=== PATIENT | female | born 1985 | race Caucasian/White ===

== ENCOUNTER → 2017-09-22 10:23 | Outpatient (CLI) | payer BC, SELFPAY ==
[2017-09-22 12:19] LABS: Basophils % 0.3 % (0.1-2.0); Eosinophils # 0.2 K/mm3 (0.0-0.4); Eosinophils % 2.6 % (0.1-12.0); Hematocrit 40.4 % (37.0-47.0); Hemoglobin 13.5 g/dL (12.2-16.2); Lymphocytes # 2.3 K/mm3 (0.7-4.5); Lymphocytes % 25.4 K/mm3 (10-50); Mean Corpuscular HGB Conc 33.4 g/dL (31.8-35.4); Mean Corpuscular Hemoglobin 29.3 pg (27.0-31.2); Mean Corpuscular Volume 87.9 fl (81-99); Mean Platelet Volume 8.3 fl (7.4-10.4); Monocytes # 0.3 K/mm3 (0.1-1.0); Monocytes % 3.6 % (1.7-9.3); Neutrophils # 6.2 K/mm3 (1.8-7.8); Neutrophils % 68.1 % (37.0-80.0); Platelet Count 294 K/mm3 (142-424); Red Cell Distribution Width 12.9 % (11.5-17.5); White Blood Count 9.1 K/mm3 (4.8-10.8)
[2017-09-23 08:21] LABS: HIV Screen 4th Generation wRfx Non Reactive (Non Reactive)
[2017-09-24 06:41] LABS: Hepatitis B Surface Antigen Negative (Negative); Hepatitis C Antibody <0.1 s/co ratio (0.0-0.9); Rapid Plasma Reagin Ab Titer Non Reactive (NonRea<1:1); Rubella Antibodies, IgG 3.63 index (Immune >0.99)
== END ==
PROVIDERS: PCP Family Medicine; Visit Provider Nurse Practitioner Obstetrics & Gynecology
DX: Z3A.01 Less than 8 weeks gestation of pregnancy (principal)
CPT/HCPCS: 36415; 85025; 86592; 86703; 86762; 86850; 87340; 87380; G0432

== ENCOUNTER → 2017-09-29 13:25 | Outpatient (CLI) | payer BC, SELFPAY ==
--- NOTE | 2017-09-29 13:30 | US_ITS ---
US OB transvaginal Ordering Physician: Josh Pearl MD Patient Age: 32 years: Female HISTORY: ITS.REASON: DATES early gestation. Evaluate dates TECHNIQUE: Transvaginal pelvic ultrasound COMPARISON :None element FINDINGS Early intrauterine gestation sac and gestation evident. Yolk sac 0.37 cm. First CRL measurement = 0.47 cm = 6 weeks 2 days. . Second measurement CRL = 0.36 cm = 6 week 1 day . No G sac measurement/size submitted Heart rate 1:09 PM. Average ultrasound age 6 weeks 1 day. Gestational age 6 week 1 day... Based on LMP 08/17/2017. Ultrasound due date 05/24/2018. Left ovary 3 cm x 1.8 x 1.3 cm. Scattered small follicles. Flow. Right ovary. 2.6 x 3.6 2.5 cm. Right ovary contains a 1.8 x 1.3 cm cyst. Possible corpus luteum.. IMPRESSION: Single] very early intrauterine gestation.. Average ultrasound age 6 weeks 1 day Heart flicker noted. Yolk sac and early embryo identified. Ovaries normal in size . 1.8 cm cyst cyst at right ovary. Probable corpus luteum cyst.
== END ==
PROVIDERS: Family Provider Nurse Practitioner Obstetrics & Gynecology; PCP Family Medicine; Visit Provider Nurse Practitioner Obstetrics & Gynecology
DX: O26.841 Uterine size-date discrepancy, first trimester (principal)
CPT/HCPCS: 76830

== ENCOUNTER 2017-10-03 10:22 | Emergency (ER) | payer BC, SELFPAY ==
[2017-10-03 10:25] VITALS: BP 140/79; PULSE 84; RESP 16; TEMP 37; O2SAT 98; BMI 33.4
--- NOTE | 2017-10-03 10:36 | US_ITS ---
US OB transvaginal HISTORY: ITS.REASON: VAGINAL BLEEDING AND PAIN ORDERING PHYSICIAN: Oleg Pinzon MD PATIENT AGE: 32 years COMPARISON: None FINDINGS: An intrauterine gestational sac is present with a pole with a crown-rump length of 0.65cm correlating to gestational age of 6 weeks 4 days. heart tones are present with an FHR of 134 bpm's. Yolk sac is noted. There is a heterogeneous area of echogenicity inferior to the gestational sac and could be due to a small area of subchorionic hemorrhage. There is a 18 mm right ovarian cyst. IMPRESSION: 1. Live IUP at 6 weeks 4 days with an estimated due date of 05/25/2018 2. Heterogeneous echogenicity along the lower uterine segment which could be due to an area of subchorionic hemorrhage
[2017-10-03 10:45] LABS: Microscopic, Urine URINE MICROSCOPIC (MICROSCOPIC)
[2017-10-03 10:46] LABS: Appearance,Urine CLEAR (Clear); Bilirubin,Urine Negative (Negative); Blood, Urine Negative (Negative); Color,Urine YELLOW (Yellow); Glucose,Urine (UA) Negative (Negative); Ketones,Urine Negative (Negative); Leukocyte Esterase,Urine Negative (Negative); Nitrate,Urine Negative (Negative); Protein,Urine Negative (Negative); Urobilinogen,Urine 0.2 EU/dl (0.2)
--- NOTE | 2017-10-03 10:48 | HMH.EDGENADL ---
ED Disposition Clinical Impression: Threatened affecting intrauterine Disposition: Home, Self-Care Condition on Discharge: Fair Additional Instructions: Advised to rest as much as possible and to avoid sexual activity. Followup with OBGYN within the next 4 to 5 days to re-evaluate. If any tissue is passed, save it and bring to the ED for analysis. Referrals: Juan A Garcia MD [Primary Care Provider] - Time of Disposition: 11:44 - Critical Care Critical Care Time: No Attestation: On 10/03/17, the high probability of a clinically significant, sudden or life threatening deterioration of the following system(s) required my full and direct attention, intervention and personal management. The time I documented below is in addition to time spent performing reported procedures but includes the following listed in this critical care notation. Medical Decision Making - Medical Records Medical records reviewed: Yes: I reviewed the patient's medical records. Vital Signs: 10/03/17 10:25 Temperature 98.6 F Temperature Source Oral Pulse Rate [Right Brachial] 84 Respiratory Rate 16 Blood Pressure [Right Arm] 140/79 Blood Pressure Mean [Right Arm] 99 Blood Pressure Source [Right Arm] Automatic Cuff Blood Pressure Position [Right Arm] Sitting 02 Sat by Pulse Oximetry 98 Oxygen Delivery Method Room Air - Lab Data Lab results reviewed: Yes: I reviewed the patient's lab results. Lab Results 10/03/17 10:40: Urine Color Yellow, Urine Appearance Clear, Urine pH 6.0, Ur Specific [place] 1.020, Urine Protein Negative, Urine Glucose (UA) Negative, Urine Ketones Negative, Urine Blood Negative, Urine Nitrate Negative, Urine Bilirubin Negative, Urine Urobilinogen 0.2, Ur Leukocyte Esterase Negative, Urine RBC None, Urine WBC Occasional, Ur Squamous Epith Cells 10-20, Urine Bacteria 2+ 10/03/17 10:50: WBC 9.2, RBC 4.89, Hgb 14.7, Hct 44.5, MCV 90.9, MCH 30.1, MCHC 33.1, RDW 12.8, Plt Count 312, MPV 8.4, Neut % (Auto) 66.4, Lymph % (Auto) 27.8, [place] % (Auto) 3.7, Eos % (Auto) 1.8, Baso % (Auto) 0.4, Neut # (Auto) 6.1, Lymph # (Auto) 2.6, [place] # (Auto) 0.3, Eos # (Auto) 0.2, Baso # (Auto) 0.0 10/03/17 10:50: Sodium 138, Potassium 4.3, Chloride 104, Carbon Dioxide 28, Anion Gap 10.3, BUN 7, Creatinine 0.71, Estimated Creat Clear 169, Estimated GFR 95, Est GFR ( Amer) 115, Glucose 109 H, Calcium 9.1, Total Bilirubin 0.3, AST 11 L, ALT 24, Alkaline Phosphatase 106, Total Protein 7.6, Albumin 3.7, Globulin 3.9 H, Albumin/Globulin Ratio 0.9 L, HCG, Quant [id number] H Result diagrams: 10/03/17 10:50 10/03/17 10:50 Orders (Tests/Meds): ORDERS Category Date Time Status US transvaginal Stat Exams 10/03/17 10:36 Ordered Urine Culture Stat Micro 10/03/17 10:40 Received - US Data US Images: Pelvis ED US Reviewed: Yes: I have reviewed the patient's US results, I discussed the US results w/the radiologist, I have viewed radiologist's interpretation Findings Narrative: Normal IUP with Corpus Luteum cyst...? small collection of blood next to sac - Dada Inquiry Pt receiving controlled substance: No Dada was queried for this patient: No General Adult HPI - General Chief complaint: OB/Uterine Contractions Stated complaint: 7 weeks with bleeding Time Seen by Provider: 10/03/17 10:50 Mode of Arrival: Family Vehicle Limitations: No Limitations Description of Symptoms (Recalled from ER Triage Doc. by RN): C/O 7 WEEKS AND DEVELOPED LIGHT VAGINAL BLEEDING THIS AM WITH CRAMPING - History of Present Illness HPI narrative: Pt is 7weeks ...had a home preg. test at 4 weeks and had an US done here this past Friday that showed a heart beat and a pole. This morning started spotting but not passed any tissue. Maternal Blood type is A positive. She has see Dr. Prieto and is scheduled to see again in about 1 month - Related Data Home Medications Medication
--- NOTE | 2017-10-03 10:53 | ED_ITS ---
ED Disposition Clinical Impression: Threatened affecting intrauterine Disposition: Home, Self-Care Condition on Discharge: Fair Additional Instructions: Advised to rest as much as possible and to avoid sexual activity. Followup with OBGYN within the next 4 to 5 days to re-evaluate. If any tissue is passed , save it and bring to the ED for analysis. Referrals: Juan A Garcia MD [Primary Care Provider] - Time of Disposition: 11:44 - Critical Care Critical Care Time: No Attestation: On 10/03/17, the high probability of a clinically significant, sudden or life threatening deterioration of the following system(s) required my full and direct attention, intervention and personal management. The time I documented below is in addition to time spent performing reported procedures but includes the following listed in this critical care notation. Medical Decision Making - Medical Records Medical records reviewed: Yes: I reviewed the patient's medical records. Vital Signs: 10/03/17 10:25 Temperature 98.6 F Temperature Source Oral Pulse Rate [Right Brachial] 84 Respiratory Rate 16 Blood Pressure [Right Arm] 140/79 Blood Pressure Mean [Right Arm] 99 Blood Pressure Source [Right Arm] Automatic Cuff Blood Pressure Position [Right Arm] Sitting 02 Sat by Pulse Oximetry 98 Oxygen Delivery Method Room Air - Lab Data Lab results reviewed: Yes: I reviewed the patient's lab results. Lab Results 10/03/17 10:40: Urine Color Yellow, Urine Appearance Clear, Urine pH 6.0, Ur Specific [place] 1.020, Urine Protein Negative, Urine Glucose (UA) Negative, Urine Ketones Negative, Urine Blood Negative, Urine Nitrate Negative, Urine Bilirubin Negative, Urine Urobilinogen 0.2, Ur Leukocyte Esterase Negative, Urine RBC None, Urine WBC Occasional, Ur Squamous Epith Cells 10-20, Urine Bacteria 2+ 10/03/17 10:50: WBC 9.2, RBC 4.89, Hgb 14.7, Hct 44.5, MCV 90.9, MCH 30.1, MCHC 33.1, RDW 12.8, Plt Count 312, MPV 8.4, Neut % (Auto) 66.4, Lymph % (Auto) 27.8 , [place] % (Auto) 3.7, Eos % (Auto) 1.8, Baso % (Auto) 0.4, Neut # (Auto) 6.1, Lymph # (Auto) 2.6, [place] # (Auto) 0.3, Eos # (Auto) 0.2, Baso # (Auto) 0.0 10/03/17 10:50: Sodium 138, Potassium 4.3, Chloride 104, Carbon Dioxide 28, Anion Gap 10.3, BUN 7, Creatinine 0.71, Estimated Creat Clear 169, Estimated GFR 95, Est GFR ( Amer) 115, Glucose 109 H, Calcium 9.1, Total Bilirubin 0.3, AST 11 L, ALT 24, Alkaline Phosphatase 106, Total Protein 7.6, Albumin 3.7 , Globulin 3.9 H, Albumin/Globulin Ratio 0.9 L, HCG, Quant [id number] H Result diagrams: 10/03/17 10:50 10/03/17 10:50 Orders (Tests/Meds): ORDERS Category Date Time Status US transvaginal Stat Exams 10/03/17 10:36 Ordered Urine Culture Stat Micro 10/03/17 10:40 Received - US Data US Images: Pelvis ED US Reviewed: Yes: I have reviewed the patient's US results, I discussed the US results w/the radiologist, I have viewed radiologist's interpretation Findings Narrative: Normal IUP with Corpus Luteum cyst...? small collection of blood next to sac - Dada Inquiry Pt receiving controlled substance: No Dada was queried for this patient: No General Adult HPI - General Chief complaint: OB/Uterine Contractions Stated complaint: 7 weeks with bleeding Time Seen by Provider: 10/03/17 10:50 Mode of Arrival: Family Vehicle Limitations: No Limitations Description of Symptoms (Re
[2017-10-03 10:58] LABS: Basophils % 0.4 % (0.1-2.0); Eosinophils # 0.2 K/mm3 (0.0-0.4); Eosinophils % 1.8 % (0.1-12.0); Hematocrit 44.5 % (37.0-47.0); Hemoglobin 14.7 g/dL (12.2-16.2); Lymphocytes # 2.6 K/mm3 (0.7-4.5); Lymphocytes % 27.8 K/mm3 (10-50); Mean Corpuscular HGB Conc 33.1 g/dL (31.8-35.4); Mean Corpuscular Hemoglobin 30.1 pg (27.0-31.2); Mean Corpuscular Volume 90.9 fl (81-99); Mean Platelet Volume 8.4 fl (7.4-10.4); Monocytes # 0.3 K/mm3 (0.1-1.0); Monocytes % 3.7 % (1.7-9.3); Neutrophils # 6.1 K/mm3 (1.8-7.8); Neutrophils % 66.4 % (37.0-80.0); Platelet Count 312 K/mm3 (142-424); Red Blood Count 4.89 M/mm3 (4.20-5.40); Red Cell Distribution Width 12.8 % (11.5-17.5); White Blood Count 9.2 K/mm3 (4.8-10.8)
[2017-10-03 10:59] LABS: Bacteria,Urine 2+ /lpf; WBC,Urine Occasional #/hpf (0-3)
--- NOTE | 2017-10-03 11:17 | PC.NURSE ---
pt to rad for transvaginal ultrasound.
[2017-10-03 11:29] LABS: Alanine Aminotransferase 24 U/L (12-78); Albumin Level 3.7 gm/dL (3.4-5.0); Albumin/Globulin Ratio 0.9 (1.1-1.8); Alkaline Phosphatase 106 U/L (46-116); Anion Gap 10.3 mEq/L (5-15); Aspartate Amino Transferase 11 U/L (15-37); Bilirubin,Total 0.3 mg/dL (0.2-1.0); Blood Urea Nitrogen 7 mg/dL (7-18); Calcium 9.1 mg/dL (8.5-10.1); Carbon Dioxide 28 mmol/L (21.0-32.0); Chloride 104 mmol/L (98-107); Creatinine Clearance Estimated 169 mL/min (0-300); Creatinine,Serum 0.71 mg/dL (0.55-1.02); Estimated Glomerular Filt Rate 95 ml/min (>60); GFR (African American) 115 ML/MIN (>60); Globulin 3.9 gm/dl (1.3-3.2); Glucose 109 mg/dL (74-106); Potassium 4.3 mmoL/L (3.5-5.1); Sodium 138 mmol/L (136-145); Total Protein,Serum 7.6 gm/dL (6.4-8.2)
[2017-10-03 12:11] VITALS: BP 140/93; PULSE 90; RESP 18; TEMP 36.8; O2SAT 97
== END 2017-10-03 12:11 | disposition home or self-care (01) ==
PROVIDERS: Emergency Provider General Practice; Family Provider Nurse Practitioner Obstetrics & Gynecology; PCP Family Medicine
DX: O20.0 Threatened abortion (principal); Z3A.01 Less than 8 weeks gestation of pregnancy
CPT/HCPCS: 76830; 80053; 81001; 84702; 85025; 87086; 99282

== ENCOUNTER → 2018-01-05 14:09 | Outpatient (CLI) | payer BC, SELFPAY ==
--- NOTE | 2018-01-05 14:12 | US_ITS ---
US OB /maternal detail: INDICATION: ITS.REASON: US OB Complete-20 wk+ Anatomy Scan ORDERING PHYSICIAN: Josh Pearl MD PATIENT AGE: 32 years TECHNIQUE: ultrasound transabdominal scanning. COMPARISON: No previous relevant studies. FINDINGS: Single viable intrauterine gestation. BREECH position. Placenta: Posterior placenta grade 1. There is average amount fluid. Complete survey performed and was unremarkable on the submitted images as in PACS. No discrete anomalies identified on survey imaging by technologist. Active fetus. Three-vessel cord with satisfactory umbilical cord insertion. 4- chamber heart noted. Survey of brain & ventricles unremarkable. Face and neck survey unremarkable. Diaphragm and chest views unremarkable. Abdomen: Both kidneys noted and unremarkable. Stomach noted and satisfactory. Spine: Survey of the spine satisfactory with no anomalies identified nor imaged. Both arms and legs noted. Amniotic Fluid: Adequate. Maternal adnexa: No significant findings. Measurements: Average ultrasound age 19w5d. Gestational Age 20w1d. Estimated due date by ultrasound 05/27/2018 . Estimated weight 313 grams. This is 27th percentile based on estimated due date BPD = 19w1d OFD = 20w6d HC = 19w4d AC = 20w0d FL = 19w6d Heart Rate = 152 bpm Cerebellum = 19w5d Humerus = 20w4d HC/AC is 1.14 1.09-1.26). CI is 70%(70-86%). FL/BPD is 72%. FL/AC is 21%. IMPRESSION: There is a single live fetus in breech presentation with an average ultrasound age of 19 weeks 5 days. No obvious anomalies. All parameters correlate. Please see above for detail.
== END ==
PROVIDERS: Family Provider Nurse Practitioner Obstetrics & Gynecology; PCP Family Medicine; Visit Provider Nurse Practitioner Obstetrics & Gynecology
DX: Z36.0 Encounter for antenatal screening for chromosomal anomalies (principal)
CPT/HCPCS: 76811

== ENCOUNTER → 2018-03-24 13:32 | Outpatient (CLI) | payer BC, SELFPAY ==
--- NOTE | 2018-03-24 13:37 | US_ITS ---
US OB biophysical profile: Indication: ITS.REASON: US OB Bpp and Growth for OLIGO ORDERING PHYSICIAN: Josh Pearl MD PATIENT AGE: 32 years FINDINGS: There is a single live fetus present in breech presentation. The following parameters are obtained: Average ultrasound age is 30w2d. Estimated due date by ultrasound is 05/31/2018. Estimated weight is 1539. This is 12 percentile based on established due date of 05/24/2018 BPD: 29w6d OFD: 31w1d HC: 30w3d AC: 30w2d FL: 30w4d heart rate: 160 bpm. HC/AC: 1.07 (0.96-1.17) Cephalic index: 74% (70-86%) FL/BPD: 79% (70-86%) FL/AC: 22% (20-24%) Amniotic fluid index: 11 cm Qualitative AFV: 2 breathing movements: 2 Gross body movements: 2 Tone: 2 Biophysical profile score: 8/8 Doppler evaluation of the umbilical artery: SD ratio: 2.5 Resistive index: 0.59 No obvious anomalies evident. Placenta: Placenta Cervix: Appears closed and measures 4 cm IMPRESSION: Single live fetus in breech presentation with average ultrasound age of 30 weeks and 2 days. Estimated be weight is 1539 g which is 12 percentile based on established due date of 05/24/2018 There is average amniotic fluid volume with an NATHALIE of 10 cm. Biophysical profile is 8 of 8. Umbilical artery evaluation is unremarkable.
== END ==
PROVIDERS: Family Provider Nurse Practitioner Obstetrics & Gynecology; PCP Family Medicine; Visit Provider Nurse Practitioner Obstetrics & Gynecology
DX: O41.00X0 Oligohydramnios, unspecified trimester, not applicable or unspecified (principal); Z34.90 Encounter for supervision of normal pregnancy, unspecified, unspecified trimester
CPT/HCPCS: 76819

== ENCOUNTER → 2018-04-28 17:01 | Outpatient (REF) | payer BC, SELFPAY | LOC: LAB 17:01 | PROVIDERS: Visit Provider Nurse Practitioner Obstetrics & Gynecology | DX: Z34.90 Encounter for supervision of normal pregnancy, unspecified, unspecified trimester (principal) | CPT/HCPCS: 86403 ==

== ENCOUNTER 2018-05-18 05:25 | Inpatient (IN) ==
[2018-05-18 06:00] LABS: Basophils % 0.3 % (0.1-2.0); Eosinophils # 0.1 K/mm3 (0.0-0.4); Eosinophils % 1.3 % (0.1-12.0); Hematocrit 37.9 % (37.0-47.0); Hemoglobin 12.5 g/dL (12.2-16.2); Lymphocytes # 2.9 K/mm3 (0.7-4.5); Mean Corpuscular HGB Conc 32.9 g/dL (31.8-35.4); Mean Corpuscular Hemoglobin 29.9 pg (27.0-31.2); Mean Corpuscular Volume 90.9 fl (81-99); Mean Platelet Volume 9.9 fl (7.4-10.4); Monocytes # 0.5 K/mm3 (0.1-1.0); Monocytes % 4.6 % (1.7-9.3); Neutrophils # 7.2 K/mm3 (1.8-7.8); Neutrophils % 66.7 % (37.0-80.0); Platelet Count 197 K/mm3 (142-424); Red Blood Count 4.17 M/mm3 (4.20-5.40); Red Cell Distribution Width 14.7 % (11.5-17.5); White Blood Count 10.7 K/mm3 (4.8-10.8)
[2018-05-18 06:08] LABS: Anion Gap 14.9 mEq/L (5-15); Calcium 8.8 mg/dL (8.5-10.1); Potassium 3.9 mmoL/L (3.5-5.1)
[2018-05-18 06:49] LABS: Microscopic, Urine URINE MICROSCOPIC (MICROSCOPIC)
--- NOTE | 2018-05-18 07:15 | Progress Note ---
[facility] Anesthesia Checklist - Structural Data Admitted From: Home Planned Operative Procedure/s: c/section Consent for Planned Operative Procedure(s) Verified: Yes - Airway Assessment C-Spine Mobility Assessed: Yes TMJ Mobility Assessed: Yes Dentition: Good Dentition - Neurological Assessment Level of Consciousness: Awake, Alert, Appropriate - Anesthesia Plan Anesthesia Risk discussed: Yes Anesthesia Plan: Verified ASA Class: II Anesthesia Type: Spinal [facility] History I have reviewed the patient's past medical history: Yes Medical History: Reports:: Anxiety, Depression Denies:: Cancer, Diabetes Mellitus Type 1, Diabetes Mellitus Type 2, MRSA Laterality Cases: Bilateral: Tonsillectomy Other Surgeries: Yes: No Previous Surgery, Amputation: No Fractures: No - *Social History Smoking Status: Former smoker Alcohol Intake: never Substance Use Type: denies use - Psychiatric History Pschychiatric History:: Reports:: Anxiety, Depression *Family Hx:: No significant family history 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
[2018-05-18 07:39] LABS: Appearance,Urine CLEAR (Clear); Bilirubin,Urine Negative (Negative); Blood, Urine Negative (Negative); Color,Urine YELLOW (Yellow); Glucose,Urine (UA) Negative (Negative); Ketones,Urine Negative (Negative); Leukocyte Esterase,Urine Negative (Negative); Protein,Urine Negative (Negative); Specific Gravity, Urine >= 1.030 (1.005-1.030); Urobilinogen,Urine 0.2 EU/dl (0.2)
[2018-05-18 07:46] LABS: Bacteria,Urine Trace /lpf; Mucus,Urine 1+ /lpf
--- NOTE | 2018-05-18 08:14 | Operative Note ---
Date of procedure: 05/18/18 Pre-op Diagnosis:: Term , previous section, breech presentation Post-op Diagnosis:: Term , previous section, breech presentation Procedure performed:: Repeat lower segment transverse section Surgeon:: Josh Pearl MD Railroad Car Checker(s):: Yanet Mehta HOUSEKEEPER NANNY:: Michael Clark Anesthesia: spinal Estimated blood loss (mL): 600 Clinical Note:: She is a 33-year-old 2 para 1 who was 39 rotational age. She has had a previous section and as result she was offered repeat lower segment transverse section at term. She was also known to have a baby in the breech presentation. Operative findings:: She delivered a liveborn female child at 7:45 AM on the morning of May 18, 2018. The baby had Apgars of 7 at 1 minute and 10 at 5 minutes. PH was 7.37. The baby was in the footling breech presentation. Ovaries and tubes appeared normal. Operative note:: She was taken to the operating room where spinal anesthesia was found be adequate. She was prepped and draped in normal sterile fashion in the supine position with a leftward tilt. A Godoy catheter was in the bladder. A Pfannenstiel skin incision was made with knife then carried through to the underlying layer of fascia with cautery. The fascia was opened in the midline with cautery and extended laterally using Mcleod scissors. Yasmany clamps were applied to the superior aspect of the fascial incision which was tented up and the underlying rectus muscles dissected off using cautery. The Yasmany clamps were then applied to the inferior aspect of the fascial incision which in a similar fashion was tented up and the underlying rectus muscles dissected off using cautery. The rectus muscles were then in the midline, the peritoneum identified, and entered sharply with Metzenbaum scissors. This incision was then extended superiorly and inferiorly with cautery. We had good visualization of the bladder inferiorly. The bladder peritoneum was then opened in the midline and extended laterally using Metzenbaum scissors. A bladder flap was created digitally. The lower blade of the [place] was inserted so as to push the bladder out of the way. Transverse incision was made through the uterine muscle to the amnion. This incision was then extended laterally using fingers traction. The amnion was entered sharply with knife. The 's feet were then delivered atraumatically. This was followed by the anterior shoulder and the rest of the 's body atraumatically. The oropharynx and nasopharynx were bulb suctioned. The cord was clamped and cut and the infant was then handed off to Dr. Diaz who assigned Apgars of 7 at 1 minute and 10 at 5 minutes. We then obtained cord blood as well as cord pH. PH was 7.37. Using gentle traction on the cord and countertraction on the fundus I was able to easily deliver the placenta intact. It had a normal three-vessel cord. The uterus was then cleared of clots and debris and exteriorized from the abdominal cavity. The uterine incision was then closed using running 0 Vicryl suture in a locked fashion. A second layer of the same suture was used to imbricate the first layer. The bladder peritoneum was then closed using running 2-0 Vicryl suture in a locked fashion. The gutters and cul-de-sac were then cleared of clots and debris and the uterus was returned the abdominal cavity. Once again hemostasis was assured. The peritoneum was grasped with Sandra clamps and closed using running 2-0 Vicryl suture. The rectus muscles were then reapproximated using running 0 Vicryl suture. The fascia was closed using running #1 Vicryl suture. The subcutaneous tissues were then irrigated with warm water followed by closure Anjelica's fascia using running 2-0 Monocryl suture. The skin was closed with elia. I then cleaned the skin with Hibiclens. Sterile dressings were applied. She tolerated the procedure well and was taken to the recovery room in excellent condition. All sponges minute and needle counts were correct. Estimate a blood loss was approximately 600 mL. Condition: stable Disposition: PACU Specimens:: Products of conception Complications:: None
--- NOTE | 2018-05-18 08:17 | Progress Note ---
[facility] Anesthesia Record Part I Intake, IV Amount: 900 Estimated blood loss (mL): 600 Urine output (mL): 200 Blood Pressure: 148/76 SaO2: 97 Pulse Rate: 85 Respiratory Rate: 12 Temperature: 97.8 F Patient is:: Awake, Stable Stable to PACU at:: 08:15
--- NOTE | 2018-05-18 08:17 | Progress Note ---
[facility] Anesthesia Record Part II Discharge Time: 08:45 Destination: Obstetric PACU nurse assessment reviewed?: Yes Patient Condition:: Good Anesthesia Complications:: None
--- NOTE | 2018-05-18 08:39 | History & Physical Report ---
OB - H&P: HPI Antepartum - History of Present Illness Chief complaint: Term , breech presentation, previous section History of present illness: She is a 33-year-old 2 para 1 at 39 weeks gestational age. She is admitted for a repeat lower segment transverse section. She also has a baby in the breech presentation. - History of Present Criteria for establishing EDC:: LMP confirmed by 1st trimester US care: good care Ultrasounds: normal 1st trimester US, normal mid trimester US Obstetrical complications: malpresentation, previous Medical complications: none [facility] History I have reviewed the patient's past medical history: Yes Medical History: Reports:: Anxiety, Depression Denies:: Cancer, Diabetes Mellitus Type 1, Diabetes Mellitus Type 2, MRSA Laterality Cases: Bilateral: Tonsillectomy Other Surgeries: Yes: No Previous Surgery, Amputation: No Fractures: No - *Social History Smoking Status: Former smoker Alcohol Intake: never Substance Use Type: denies use - Psychiatric History Pschychiatric History:: Reports:: Anxiety, Depression *Family Hx:: No significant family history 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 Review of Systems - Review of Systems Review of systems:: pertinent systems reviewed and negative unless documented below Meds Home Medications Medication Instructions Recorded Confirmed Type 1 tab PO QHS 09/22/17 05/18/18 History vitamin,calcium,keheidyz-gbit-[id number] acid tablet Ferrous Sulfate 325 mg PO DAILY 05/18/18 05/18/18 History Allergies Allergy/AdvReac Type Severity Reaction Status Date / Time No Known Allergies Allergy Verified 05/18/18 06:43 OB - H&P: Exam - Physical Exam Vital signs: Temp Pulse Resp BP Pulse Ox 97.8 F 85 12 148/76 H 97 05/18/18 08:17 05/18/18 08:17 05/18/18 08:17 05/18/18 08:17 05/18/18 05:33 - Constitutional no acute distress - Routine HEENT Exam Head: Present: normocephalic Eye: Present: EOMI, PERRL ENT: Present: mucous membranes moist - Routine Neck Exam Present: supple, full ROM - Routine Respiratory Exam Absent: accessory muscle use (good air entry bilaterally), respiratory distress, wheezes, crackles - Routine Cardiovascular Exam Present: RRR. Absent: murmur - Routine Abdominal Exam Present: soft, normoactive bowel sounds. Absent: tenderness, distended, guarding - Routine Rectal Exam Patient deferred: visual exam, digital exam - Routine Exam Patient deferred: external exam, groin exam, perineal exam - Routine Extremities Exam Present: full ROM. Absent: cyanosis, edema - Routine Skin Exam Present: intact. Absent: cyanosis - Routine Neurological Exam Present: alert, oriented X3 - Routine Psychiatric Exam Present: normal affect OB - Results - Labs Labs: Short CBC 05/18/18 Range/Units 05:50 WBC 10.7 (4.8-10.8) K/mm3 Hgb 12.5 (12.2-16.2) g/dL Hct 37.9 (37.0-47.0) % Plt Count 197 (142-424) K/mm3 BMP 05/18/18 05:50 Sodium 136 Potassium 3.9 Chloride 104 Carbon Dioxide 21 BUN 8 Creatinine 0.62 Glucose 124 H Calcium 8.8 Urine 05/18/18 05/18/18 Range/Units 06:20 06:20 Urine Color Yellow (Yellow) Urine Appearance Clear (Clear) Urine pH 6.0 (5.0-8.5) Ur Specific [place] >= 1.030 (1.005-1.030) Urine Protein Cancelled Negative Urine Glucose (UA) Negative (Negative) OB - A/P Antepartum (1) Previous section complicating Current visit: Yes Status: Acute (2) Breech presentation delivered Current visit: Yes Status: Acute - Additional Plan Planning to breastfeed?: Yes Plan: other Additional Information:: She is admitted for a repeat lower segment transverse section.
--- NOTE | 2018-05-18 10:12 | Pharmacy Consult Notes ---
[facility] Pharmacy VTE Monitoring - Patient Demographics Admission date: 05/18/18 Report Date: 05/18/18 Time: 10:12 Allergies/Adverse Reactions: Patient Allergies No Known Allergies Allergy (Verified 05/18/18 06:43) Height: 1.68 m Weight: 106.594 kg Patient Problems: Current Active Problems Previous section complicating (Acute) Breech presentation delivered (Acute) - VTE Risk Labs: VTE Related Lab Results Hgb 12.5 g/dL (12.2-16.2) 05/18/18 05:50 Hct 37.9 % (37.0-47.0) 05/18/18 05:50 Plt Count 197 K/mm3 (142-424) 05/18/18 05:50 BUN 8 mg/dL (7-18) 05/18/18 05:50 Creatinine 0.62 mg/dL (0.55-1.02) 05/18/18 05:50 Estimated Creat Clear 217 mL/min (0-300) 05/18/18 05:50 Was VTE Risk Assessment Performed: Yes - Prophylaxis VTE Prophylaxis Ordered?: Yes Types of VTE Prophylaxis: IPCS Knee High Location of Applied Device: Bilateral Lower Extremeties
[2018-05-19 06:03] LABS: Basophils % 0.2 % (0.1-2.0); Eosinophils # 0.1 K/mm3 (0.0-0.4); Eosinophils % 0.8 % (0.1-12.0); Hematocrit 33.3 % (37.0-47.0); Lymphocytes # 1.7 K/mm3 (0.7-4.5); Lymphocytes % 17.8 K/mm3 (10-50); Mean Corpuscular HGB Conc 32.4 g/dL (31.8-35.4); Mean Corpuscular Hemoglobin 30.1 pg (27.0-31.2); Mean Corpuscular Volume 92.9 fl (81-99); Mean Platelet Volume 9.4 fl (7.4-10.4); Monocytes # 0.5 K/mm3 (0.1-1.0); Monocytes % 4.8 % (1.7-9.3); Neutrophils # 7.2 K/mm3 (1.8-7.8); Neutrophils % 76.4 % (37.0-80.0); Platelet Count 163 K/mm3 (142-424); Red Blood Count 3.59 M/mm3 (4.20-5.40); Red Cell Distribution Width 14.8 % (11.5-17.5); White Blood Count 9.4 K/mm3 (4.8-10.8)
[2018-05-19 06:15] LABS: Hemoglobin 10.9 g/dL (12.2-16.2)
--- NOTE | 2018-05-19 08:22 | Progress Note ---
Internal Medicine - PN: Subj *Date: 05/19/18 *Time: 08:21 Interval history: She continues to do very well. She is eating and. She is breast-feeding. Her lochia is normal. Her pain is reasonably well controlled. Exam Vital signs and Labs for Last 24 Hours: Temp Pulse Resp BP Pulse Ox 97.4 F L 75 16 133/74 99 05/18/18 08:49 05/18/18 08:49 05/18/18 08:49 05/18/18 08:49 05/18/18 08:49 Laboratory Results - last 24 hr 05/19/18 05:10: WBC 9.4, RBC 3.59 L, Hgb 10.9 L D, Hct 33.3 L, MCV 92.9, MCH 30.1, MCHC 32.4, RDW 14.8, Plt Count 163, MPV 9.4, Neut % (Auto) 76.4, Lymph % (Auto) 17.8, [place] % (Auto) 4.8, Eos % (Auto) 0.8, Baso % (Auto) 0.2, Neut # (Auto) 7.2, Lymph # (Auto) 1.7, [place] # (Auto) 0.5, Eos # (Auto) 0.1, Baso # (Auto) 0.0 I & O for Last 24 hours: Intake & Output 05/16/18 05/17/18 05/18/18 05/19/18 11:59 11:59 11:59 11:59 Intake Total 900 / 900 Output Total 200 / 200 Balance 700 / 700 Weight 235 lb - Constitutional no acute distress Assessment and Plan (1) Previous section complicating Current visit: Yes Status: Acute Category: Medical Code(s): O34.219 - Maternal care for unspecified type scar from previous delivery (2) Breech presentation delivered Current visit: Yes Status: Acute Category: Medical Code(s): O32.1XX0 - Maternal care for breech presentation, not applicable or unspecified - Assessment and plan all Dx Assessment and Plan for all problems:: She continues to do very well. We will plan to send her home tomorrow.
--- NOTE | 2018-05-20 08:38 | Discharge Summary ---
General - General Admission date:: 05/18/18 Discharge date: 05/20/18 HPI HPI: She is a 33-year-old 2 now para 2 who was 39+1 weeks gestational age. She has had a previous section as result of that was operatively lower segment transverse term. Hospital Course Hospital Course: On May 18, 2018 she underwent a repeat lower segment transverse section. She delivered a liveborn female child at 7:45 AM. The baby weighed 8 pounds 5 ounces and was 20 inches long. She had Apgars of 7 at 1 minute and 10 at 5 minutes. She has done well postoperatively and has remained afebrile throughout her hospitalization. She is eating and drinking and ambulating. She is bottlefeeding. She is only 2 days post delivery but would like to go home one day early. She will have her elia removed and Steri-Strips applied. She will be given a prescription for Dilaudid 4 mg p.o. to take 1/2 tablet every 4 hours as needed for pain. She will also take ibuprofen. She has a positive blood, she is rubella immune and was group B streptococcus negative. 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 Diaz. She is discharged home to follow-up with me in approximately 2 weeks time. She will continue with her vitamins and iron. She was given the usual instructions with respect to limiting her activity, driving and sexual activity. Rhogam Administration: Not Indicated Objective Vital signs: Temp Pulse Resp BP Pulse Ox 98.0 F 88 18 133/65 98 05/19/18 08:00 05/19/18 08:00 05/19/18 08:00 05/19/18 08:00 05/19/18 08:00 no acute distress DS: Diagnosis - Discharge Diagnosis (1) Previous section complicating Status: Acute (2) Breech presentation delivered Status: Acute Discharge Plan - Patient Discharge Instructions ACTIVITY: No heavy lifting DIET: continue same diet Additional Instructions: No heavy lifting, no tub baths, no strenuous activity and nothing in the vagina for 6 weeks. Patient Instructions: Depression, Hemorrhage, DI for , [facility] Post Discharge Instructions - Follow up Plan Follow up with: Josh Pearl MD [Family Provider] - 06/01/18 2:00 pm Disposition: Home, Self-Snf Medications: Home Medications Medication Instructions Recorded Confirmed Type 1 tab PO HS 09/22/17 05/18/18 History vitamin,calcium,bxmcmtmc-rklf-zaydc acid tablet Ferrous Sulfate 325 mg PO DAILY 05/18/18 05/18/18 History Prescriptions/Medication Reconciliation: New Hydromorphone HCl [Hydromorphone 2mg Tab] 2 mg PO Q4HP PRN #30 tab PRN Reason: Severe Pain Ibuprofen [Motrin 400mg tablet] 400 mg PO Q4HP PRN #40 tab PRN Reason: Moderate Pain Continue vitamin,calcium,jcqnbbbf-cypp-rmrtl acid tablet 1 tab PO HS Ferrous Sulfate 325 mg PO DAILY
== END 2018-05-20 11:20 | disposition home or self-care (01) ==
LOC: OB 05:25
PROVIDERS: ADMIT Nurse Practitioner Obstetrics & Gynecology; ATTEND Nurse Practitioner Obstetrics & Gynecology
CPT/HCPCS: 36415; 59025; 80048; 81001; 82800; 85025; 86850; 94761; J2405

== ENCOUNTER → 2019-12-09 11:09 | Outpatient (CLI) | payer OTHER, SELFPAY ==
--- NOTE | 2019-12-09 11:16 | XR_ITS ---
PROCEDURE: XR LUMBAR SPINE MIN 4V CLINICAL INDICATION: LOW BACK PAIN COMPARISON: No exams were available for comparison FINDINGS: There is straightening of the lumbar lordosis. No fracture or dislocation. No lytic or blastic change. There is minimal osteophyte formation at the inferior and anterior aspect of L3 IMPRESSION: Straightening of lumbar lordosis which could be due to patient positioning or muscle spasm with mild degenerative change Dictated by: Marco Taylor MD 12/09/2019 14:33 Electronically signed by Marco Taylor MD in [place] 12/09/2019 14:33
== END ==
LOC: RAD 11:13
PROVIDERS: PCP Family Medicine; Visit Provider Family Medicine
DX: M54.5 Low back pain (principal)
CPT/HCPCS: 72110

== ENCOUNTER 2020-03-13 17:17 | Emergency (ER) | payer OTHER, SELFPAY ==
[2020-03-13 17:38] VITALS: BP 148/94; PULSE 113; RESP 98; TEMP 36.8; O2SAT 98; BMI 28.2
--- NOTE | 2020-03-13 17:39 | HMH.EDUTC ---
[facility] [place] Disposition Clinical Impression: Exposure to COVID-19 virus, Viral syndrome Disposition: Home, Self-Care Condition on Discharge: Good Instructions: DI for Acute Bronchitis, DI for Viral Syndrome Additional Instructions: Drink plenty of fluids. Take tylenol for pain or fever. Take the medications as directed. Follow up with your regular doctor. GO TO THE ER FOR ANY WORSENING SYMPTOMS FOLLOW THE DIRECTIONS ON THE COVID-19 HAND OUT THAT WE GAVE YOU REGARDING SELF-ISOLATION UNTIL YOU KNOW YOUR COVID-19 RESULTS Prescriptions: Ondansetron [Zofran 4mg ODT] 4 mg PO Q8HP PRN #20 tab.rapdis PRN Reason: Nausea Transmission Status: Pending to [facility] Azithromycin [Z-Bart 250mg Tab*] 250 mg PO UD DOSE PK #6 tab Transmission Status: Pending to [facility] Referrals: Juan A Garcia MD [Primary Care Provider] - Forms: Work/School Release Time of Disposition: 17:44 Medical Decision Making - Medical Records Medical records reviewed: No: I reviewed the patient's medical records. - Dada Inquiry Pt receiving controlled substance: No Vital Signs: 03/13/20 17:38 Temperature 98.3 F Temperature Source Oral Pulse Rate [Right Brachial] 21 L Respiratory Rate 98 H Blood Pressure [Right Arm] 148/94 H Blood Pressure Mean [Right Arm] 112 Blood Pressure Source [Right Arm] Automatic Cuff Blood Pressure Position [Right Arm] Sitting 02 Sat by Pulse Oximetry 98 Oxygen Delivery Method Room Air Orders (Tests/Meds): ORDERS Category Date Time Status Coronavirus 19 Swab (OUTPT) Routine Lab 03/13/20 17:24 Ordered [facility] [place] HPI - General Stated complaint: covid symptoms Time Seen by Provider: 03/13/20 17:42 - History of Present Illness Provider Complaint: She c/o starting to feel bad 2 days ago. She states that she has mild shortness of breath at times. She has been chilling but denies any documented fever. - Related Data Previous Rx's Medication Instructions Recorded amoxicillin 875 mg tablet 875 mg PO Q12H #20 tab 09/24/19 prednisone 20 mg tablet 20 mg PO BID 5 Days #10 tab 09/24/19 hydrocortisone 1 %-pramoxine 1 % 1 applic MO QID PRN #10 g 12/06/19 rectal foam nitrofurantoin 100 mg PO Q12H 5 Days #10 cap 02/10/20 monohydrate/macrocrystals 100 mg capsule phenazopyridine 100 mg tablet 100 mg PO TID PRN 3 Days #9 tab 02/10/20 Azithromycin [Z-Bart 250mg Tab*] 250 mg PO UD DOSE PK #6 tab 03/13/20 Ondansetron [Zofran 4mg ODT] 4 mg PO Q8HP PRN #20 tab.rapdis 03/13/20 Allergies Allergy/AdvReac Type Severity Reaction Status Date / Time amoxicillin Allergy Verified 02/10/20 08:25 [facility] History - Hepatitis A Screen Attestation statement:: This patient has been screened for Hepatitis A risk factors. I have reviewed the patient's past medical history: Yes Medical History: Reports:: Anxiety, Depression Denies:: Cancer, Diabetes Mellitus Type 1, Diabetes Mellitus Type 2, MRSA Laterality Cases: Bilateral: Tonsillectomy Other Surgeries: Yes: No Previous Surgery, Amputation: No Fractures: No - Social History Smoking Status: Current every day smoker Tobacco Type: cigarettes # Packs/Day (cigarettes): 1 Alcohol Intake: never Substance Use Type: denies use Occupational Status: other Housing: house - Psychiatric History Pschychiatric History:: Reports:: Anxiety, Depression Family Hx:: No significant family history [employer] history: Additional [employer] History ROS Obtained: Yes All systems reviewed & no additional complaints - Constitutional Constitutional: Denies chills, Denies fever(s), Reports poor appetite, Reports malaise - ENT Ears, Nose, Mouth, and Throat: Reports as per HPI Physical Exam - General General appearance: alert, in no apparent distress - Head Head exam: atraumatic, normocephalic, normal inspection - Eye Eye exam: Present: normal appearance, PERRL, EOMI - ENT ENT exam: Present: normal exam, normal or
[2020-03-13 17:49] VITALS: BP 148/94; PULSE 113; RESP 21; TEMP 36.8; O2SAT 98
== END 2020-03-13 17:53 | disposition home or self-care (01) ==
PROVIDERS: Emergency Provider Nurse Practitioner Family; PCP Family Medicine
DX: Z20.828 Contact with and (suspected) exposure to other viral communicable diseases (principal); R06.02 Shortness of breath; F17.210 Nicotine dependence, cigarettes, uncomplicated; F41.8 Other specified anxiety disorders; Z90.09 Acquired absence of other part of head and neck; Z88.1 Allergy status to other antibiotic agents
CPT/HCPCS: 99201; U0003

== ENCOUNTER → 2020-12-28 15:53 | Outpatient (CLI) | payer OTHER, SELFPAY | LOC: RT 15:55 | PROVIDERS: PCP Family Medicine; Visit Provider Physician Assistant | DX: R00.0 Tachycardia, unspecified (principal) | CPT/HCPCS: 93225; 93226 ==

== ENCOUNTER → 2020-12-29 07:33 | Outpatient (CLI) | payer OTHER, SELFPAY ==
[2020-12-29 08:53] LABS: Basophils # 0.1 K/mm3 (0-0.2); Basophils % 0.5 % (0.1-2.0); Eosinophils # 0.4 K/mm3 (0.0-0.4); Eosinophils % 3.9 % (0.1-12.0); Hematocrit 41.4 % (37.0-47.0); Hemoglobin 13.8 g/dL (12.2-16.2); Lymphocytes # 2.1 K/mm3 (0.7-4.5); Lymphocytes % 22.3 % (10-50); Mean Corpuscular HGB Conc 33.3 g/dL (31.8-35.4); Mean Corpuscular Hemoglobin 29.1 pg (27.0-31.2); Mean Corpuscular Volume 87.6 fl (81-99); Mean Platelet Volume 8.1 fl (7.4-10.4); Monocytes # 0.3 K/mm3 (0.1-1.0); Monocytes % 3.6 % (1.7-9.3); Neutrophils # 6.6 K/mm3 (1.8-7.8); Neutrophils % 69.8 % (37.0-80.0); Platelet Count 279 K/mm3 (142-424); Red Blood Count 4.73 M/mm3 (4.20-5.40); Red Cell Distribution Width 13.1 % (11.5-17.5); White Blood Count 9.5 K/mm3 (4.8-10.8)
[2020-12-29 09:16] LABS: Alanine Aminotransferase 13 U/L (12-78); Albumin Level 4.2 g/dl (3.5-5.0); Albumin/Globulin Ratio 1.8 (1.1-1.8); Alkaline Phosphatase 95 U/L (38-126); Anion Gap 8.3 mEq/L (5-15); Aspartate Amino Transferase 17 U/L (14-36); Bilirubin,Total 0.8 mg/dl (0.2-1.3); Blood Urea Nitrogen 11 mg/dl (7-17); Calcium 9.2 mg/dl (8.4-10.2); Carbon Dioxide 25 mmol/L (22.0-30.0); Chloride 107 mmol/L (98-107); Chol/HDL Ratio 4.3 (1-3.5); Cholesterol 199 mg/dl (140-200); Estimated Glomerular Filt Rate 82 ml/min (>60); GFR (African American) 99 ML/MIN (>60); Globulin 2.4 g/dL (1.3-3.2); Glucose 128 mg/dl (74-100); HDL Cholesterol 46 mg/dl (40-60); Potassium 4.3 mmoL/L (3.5-5.1); Sodium 136 mmol/L (136-145); Total Protein,Serum 6.6 g/dl (6.3-8.2); Triglycerides 191 mg/dl (30-150); VLDL Cholesterol 38 mg/dL (0-40)
[2020-12-29 09:27] LABS: Direct LDL Cholesterol 112.33 mg/dL (100-129)
[2020-12-29 09:31] LABS: Free T4 (Free Thyroxine) 1.08 ng/dl (0.78-2.19)
[2020-12-29 09:45] LABS: Thyroid Stimulating Hormone 2.32 uIU/mL (0.465-4.68)
[2020-12-29 10:03] LABS: Vitamin B12 380 pg/mL (239-931)
== END ==
LOC: LAB 07:33
PROVIDERS: Visit Provider Physician Assistant
DX: R00.0 Tachycardia, unspecified (principal); I10 Essential (primary) hypertension; Z13.220 Encounter for screening for lipoid disorders
CPT/HCPCS: 36415; 80053; 80061; 82607; 84439; 84443; 85025

== ENCOUNTER → 2021-01-29 07:45 | Outpatient (CLI) | payer OTHER, SELFPAY ==
--- NOTE | 2021-01-29 07:49 | US_ITS ---
PROCEDURE: US ABDOMEN LIMITED CLINICAL INDICATION: RUQ ABD PAIN COMPARISON: No exams were available for comparison FINDINGS: PANCREAS: Unremarkable. No obvious mass or abnormal fluid collection. No ductal dilatation LIVER: No focal liver lesions demonstrated. Homogeneous echogenicity. No intrahepatic biliary ductal dilatation evident. There is appropriate direction of blood flow. The portal vein is upper normal at 13 15 mm. RIGHT KIDNEY: Unremarkable. Normal size and echogenicity. No hydronephrosis GALLBLADDER: No gallstones, gallbladder wall thickening, pericholecystic fluid, or biliary dilatation. IMPRESSION: Unremarkable limited abdominal ultrasound as detailed above disc Dictated by: Marco Taylor MD 01/29/2021 13:39 Marco Taylor MD in [place] 01/29/2021 13:39
== END ==
PROVIDERS: PCP Family Medicine; Visit Provider Physician Assistant
DX: R10.11 Right upper quadrant pain (principal)
CPT/HCPCS: 76705

== ENCOUNTER → 2021-02-08 10:19 | Outpatient (CLI) | payer OTHER, SELFPAY ==
--- NOTE | 2021-02-08 10:22 | NM_ITS ---
PROCEDURE: NM HEPATOBILIARY W PHARM CLINICAL INDICATION: RUQ PAIN COMPARISON: No exams were available for comparison TECHNIQUE: DOSE: 8.02 mCi technetium Choletec and 1.8 mcg of CCK FINDINGS: Homogeneous activity is present within the hepatic parenchyma. Activity is present in the gallbladder by 5 minutes. Activity is present in the small bowel by 20 minutes. The gallbladder ejection fraction is calculated to be 29 percent. CCK-The patient did not report pain or other symptoms during CCK infusion. IMPRESSION: 1. No evidence of common or cystic duct obstruction. 2. Slightly low gallbladder ejection fraction at 29 percent with normal at or above 35 percent. No pain reported with CCK infusion Dictated by: Marco Taylor MD 02/08/2021 12:44 Marco Taylor MD in [place] 02/08/2021 12:44
== END ==
LOC: RAD 10:19
PROVIDERS: PCP Family Medicine; Visit Provider Physician Assistant
DX: R10.11 Right upper quadrant pain (principal)
CPT/HCPCS: 78227; A9537; J2805

== ENCOUNTER 2022-09-14 11:01 | Emergency (ER) | payer OTHER, SELFPAY ==
[2022-09-14 11:10] VITALS: BP 121/97; PULSE 112; RESP 21; TEMP 36.8; O2SAT 97; BMI 32.5
--- NOTE | 2022-09-14 11:11 | EXP.UTC ---
Discharge Plan Disposition Patient Disposition: Home, Self-Care Condition: Good Prescriptions Prescriptions: New prednisone 10 mg tablet 10 mg PO BID 3 Days Qty: 6 0RF benzonatate [benzonatate] 100 mg capsule 100 mg PO TIDP PRN (Reason: Cough) Qty: 30 0RF cefdinir 300 mg capsule 300 mg PO BID Qty: 20 0RF No Action cyclobenzaprine 5 mg tablet 5 mg PO Label Comments: TAKE ONE TABLET BY MOUTH THREE TIMES DAILY NEEDED MAY CAUSE DROWSINESS citalopram 20 mg tablet 20 mg PO Label Comments: TAKE ONE TABLET BY MOUTH EVERY DAY metoprolol succinate 25 mg tablet extended release 24 hr 25 mg PO DAILY famotidine [Pepcid] 40 mg tablet 40 mg PO DAILY celecoxib 200 mg capsule 200 mg NG-TUBE Label Comments: TAKE 1 CAPSULE BY MOUTH ONCE DAILY Saccharomyces boulardii [Daily Probiotic (S. boulardii)] 250 mg capsule 250 mg PO BID Probiotic Blend 2 billion cell-50 mg capsule 1 cap PO DAILY Rx Instructions: give with meal/snack Referrals Follow up/Referrals: Juan A Garcia MD [Primary Care Provider] - See instructions Activity Restrictions/Add. Instructions Additional Instructions/Restrictions: Drink plenty of fluids. Take tylenol or ibuprofen for pain or fever. Take the medications as directed. Follow up with your regular doctor. GO TO THE ER FOR ANY WORSENING SYMPTOMS Throw your tooth brush away and get a new one. Clinical Impressions Clinical Impression: Strep throat Instructions Patient Instructions: Strep Throat, DI for Strep Throat Discharge ED Provider: Kyle Rodriguez [facility] [place] HPI General Stated complaint: sore throat Time Seen by Provider: 09/14/22 11:11 History of Present Illness Provider Complaint: She states that for the past 2 days she has had sore throat, chills, body aches and low grade fever. Related Data Home Medications Medication Instructions Recorded Confirmed citalopram 20 mg tablet 20 mg PO 03/21/20 12/03/21 cyclobenzaprine 5 mg tablet 5 mg PO 03/21/20 12/03/21 famotidine 40 mg tablet (Pepcid) 40 mg PO DAILY 02/26/21 12/03/21 metoprolol succinate 25 mg 25 mg PO DAILY 02/26/21 12/03/21 tablet,extended release 24 hr L.acidophil-L.casei-B.bifid-B.longum-FOS 1 cap PO DAILY 12/03/21 12/03/21 2 billion cell-50 mg capsule (Probiotic Blend) Saccharomyces boulardii 250 mg 250 mg PO BID 12/03/21 12/03/21 capsule (Daily Probiotic (S. boulardii)) celecoxib 200 mg capsule 200 mg feeding tube 12/03/21 12/03/21 Previous Rx's Medication Instructions Recorded benzonatate 100 mg capsule 100 mg PO TIDP PRN Cough #30 caps 09/14/22 cefdinir 300 mg capsule 300 mg PO BID #20 caps 09/14/22 prednisone 10 mg tablet 10 mg PO BID 3 days #6 tabs 09/14/22 Allergies Allergy/AdvReac Type Severity Reaction Status Date / Time amoxicillin Allergy Verified 12/03/21 09:[address] [facility] Disclaimer: The information contained in this section may have been updated after the patient was seen, as this information can be updated by other users. Medical History Anxiety Depression History of gastroesophageal reflux (GERD) Hypertension Surgical History H/O wisdom tooth extraction History of section History of tonsillectomy Social History Smoking Status: Current every day smoker tobacco type: cigarettes packs per day: 1 alcohol intake: current substance use type: denies use current occupational status: other Travel in the last 8 weeks: None housing: house ROS Obtained: Yes All systems reviewed & no additional complaints except as documented Constitutional Constitutional: Reports chills and Reports fever(s) Eyes Eyes: Denies eye discharge ENT Ears, Nose, Mouth, and Throat: Reports as per HPI Cardiovascular
[2022-09-14 11:34] LABS: UTC Strep Screen (Rapid) Positive (Negative)
[2022-09-14 11:38] VITALS: BP 121/97; PULSE 112; RESP 21; TEMP 36.8; O2SAT 97
== END 2022-09-14 12:03 | disposition home or self-care (01) ==
PROVIDERS: Emergency Provider Nurse Practitioner Family; PCP Family Medicine
DX: J02.0 Streptococcal pharyngitis (principal)
CPT/HCPCS: 87880; 99212; 99213; G0463

== ENCOUNTER 2022-11-06 14:56 | Emergency (ER) | payer OTHER, SELFPAY ==
[2022-11-06 15:10] VITALS: BP 146/85; PULSE 113; RESP 20; TEMP 36.9; O2SAT 95; BMI 30.5
[2022-11-06 15:29] LABS: Apearance,Urine Clear (Clear); Color,Urine Yellow (Yellow)
[2022-11-06 15:30] LABS: Bilirubin,Urine Negative (Negative); Blood, Urine Trace (Negative); Glucose,Urine (UA) Negative (Negative); Ketones,Urine Negative (Negative); Protein,Urine Negative (Negative); UTC Leukocyte Esterase,Urine Negative (Negative); UTC Nitrate,Urine Negative (Negative); Urobilinogen,Urine 0.2 EU/dl (0.2)
--- NOTE | 2022-11-06 15:30 | EXP.UTC ---
Discharge Plan Disposition Patient Disposition: Home, Self-Care Condition: Good Prescriptions Prescriptions: New nitrofurantoin monohyd/m-cryst [Macrobid] 100 mg capsule 100 mg PO Q12H 5 Days Qty: 10 0RF Rx Instructions: must administer with a meal/food No Action cyclobenzaprine 5 mg tablet 5 mg PO NEEDED PRN (Reason: Pain) Label Comments: TAKE ONE TABLET BY MOUTH THREE TIMES DAILY NEEDED MAY CAUSE DROWSINESS metoprolol succinate 25 mg tablet extended release 24 hr 25 mg PO DAILY celecoxib 200 mg capsule 200 mg PO DAILY Label Comments: TAKE 1 CAPSULE BY MOUTH ONCE DAILY Saccharomyces boulardii [Daily Probiotic (S. boulardii)] 250 mg capsule 250 mg PO BID Probiotic Blend 2 billion cell-50 mg capsule 1 cap PO DAILY Rx Instructions: give with meal/snack duloxetine 30 mg capsule,delayed release(DR/EC) 30 mg PO DAILY Label Comments: TAKE ONE CAPSULE BY MOUTH EVERY DAY Referrals Follow up/Referrals: Chico Drew MD [Primary Care Provider] - See instructions Activity Restrictions/Add. Instructions Additional Instructions/Restrictions: *Increase fluids. Water not Soda or Tea *Start antibiotic immediately and be sure to take as ordered for the FULL length of time although you should start to see improvement over the next 48 hours *Be SURE to follow up anytime for new or worsening symptoms with your family doctor. AND in 48 hours for urine culture results with your family doctor, if you do not have a doctor then you may call back to the [facility] for urine culture results and further treatment. We do recommend that you choose and establish care with a Primary Care Physician. ?AND follow up with them ?in 10-14 days to repeat UA to ensure infection is resolved and blood no longer present *Be sure to let your PCP know that we sent urine cultures from the [facility] so they can follow up to ensure that you area the on the correct antibiotic Call your doctor office and make appointment for 48 hours (2 days from today) ?to follow up and get the results of your urine culture and further treatment Clinical Impressions Clinical Impression: UTI symptoms Instructions Patient Instructions: Nitrofurantoin Discharge ED Provider: Paris Rich [facility] [place] HPI General Stated complaint: possible UTI Mode of Arrival: Ambulatory Source of Information: Patient Limitations: No Limitations Time Seen by Provider: 11/06/22 15:30 Description of Symptoms (Recalled from Triage Doc. by RN): urgency and frequency in urination HEENT Symptoms (Recalled from RN notes): No Resp Symptoms (Recalled from RN notes): No Skin Symptoms (Recalled from RN notes): No MS Symptoms (Recalled from RN notes): No Functional Status (Recalled from RN notes): n/a History of Present Illness Provider Complaint: Patient states that she feels like she may have UTI States that she has been having the feeling of urgency and frequency and pressure in her lower abdomen when she urinates states that it feels like UTI she has had in the past Denies fever, denies chills, denies low back pain Related Data Home Medications Medication Instructions Recorded Confirmed cyclobenzaprine 5 mg tablet 5 mg PO NEEDED PRN Pain 03/21/20 11/06/22 metoprolol succinate 25 mg 25 mg PO DAILY . 02/26/21 11/06/22 tablet,extended release 24 hr L.acidophil-L.casei-B.bifid-B.longum-FOS 1 cap PO DAILY 12/03/21 12/03/21 2 billion cell-50 mg capsule (Probiotic Blend) Saccharomyces boulardii 250 mg 250 mg PO BID 12/03/21 12/03/21 capsule (Daily Probiotic (S. boulardii)) celecoxib 200 mg capsule 200 mg PO DAILY . 12/03/21 11/06/22 duloxetine 30 mg capsule,delayed 30 mg PO DAILY . 11/06/22 11/06/22 release Previous Rx's Medication Instructions Recorded nitrofurantoin 100 mg PO Q12H 5 days #10 caps 11/06/22 monohydrate/macrocrystals 100 mg capsule (Macrobid) Allergies Allergy/AdvReac Type Severity Re
[2022-11-06 16:12] VITALS: BP 146/85; PULSE 113; RESP 20; TEMP 36.9; O2SAT 95
== END 2022-11-06 16:12 | disposition home or self-care (01) ==
PROVIDERS: Emergency Provider Nurse Practitioner; PCP Family Medicine
DX: I10 Essential (primary) hypertension (principal); F17.210 Nicotine dependence, cigarettes, uncomplicated; N39.0 Urinary tract infection, site not specified
CPT/HCPCS: 81003; 87086; 99212; 99213; 99214; G0463

== ENCOUNTER → 2022-11-19 09:20 | Outpatient (CLI) | payer OTHER, SELFPAY ==
--- NOTE | 2022-11-19 09:20 | US_ITS ---
FINAL REPORT CLINICAL HISTORY: Right upper quad pain FINDINGS: Sonographic images of the right upper quadrant were obtained. The pancreas is partially obscured. There is mild increased echogenicity in the liver consistent with mild fatty infiltration. The gallbladder appears normal without evidence of gallstones.There is no evidence of biliary ductal dilatation.The common duct measures 3 mm. Limited images of the right kidney are unremarkable. IMPRESSION: Mild fatty infiltration of the liver. Otherwise unremarkable exam. Reviewed, Interpreted and Dictated by Dain Denny III, MD Transcribed by Ileana Krause Authenticated and [facility]
== END ==
PROVIDERS: PCP Family Medicine; Visit Provider Surgery
DX: R10.11 Right upper quadrant pain (principal)
CPT/HCPCS: 76705

== ENCOUNTER 2023-03-09 10:26 | Emergency (ER) | payer OTHER, SELFPAY ==
[2023-03-09 10:45] VITALS: BP 134/86; PULSE 91; RESP 18; TEMP 37.2; O2SAT 98; BMI 33.4
[2023-03-09 10:54] LABS: UTC Strep Screen (Rapid) Negative (Negative)
--- NOTE | 2023-03-09 11:06 | EXP.UTC ---
Discharge Plan Disposition Patient Disposition: Home, Self-Care Condition: Good Prescriptions Prescriptions: New azithromycin [Zithromax Z-Bart] 250 mg tablet See Rx Instructions .ROUTE .COMPLEX 5 Days Qty: 6 0RF Rx Instructions: For 250 mg dose pack: take 500 mg today (day 1), then 250 mg for 4 days (days 2-5) No Action cyclobenzaprine 5 mg tablet 5 mg PO NEEDED PRN (Reason: Pain) Patient Comments: TAKE ONE TABLET BY MOUTH THREE TIMES DAILY NEEDED MAY CAUSE DROWSINESS metoprolol succinate 25 mg tablet extended release 24 hr 12.5 mg PO DAILY celecoxib 200 mg capsule 200 mg PO DAILY Patient Comments: TAKE 1 CAPSULE BY MOUTH ONCE DAILY duloxetine 30 mg capsule,delayed release(DR/EC) 30 mg PO DAILY Patient Comments: TAKE ONE CAPSULE BY MOUTH EVERY DAY fexofenadine [Liat Allergy] 180 mg Tablet 180 mg PO DAILY Referrals Follow up/Referrals: Chico Drew MD [Primary Care Provider] - See instructions Activity Restrictions/Add. Instructions Additional Instructions/Restrictions: *Monitor Temp, Over the counter Motrin or Tylenol as directed/as needed Tylenol every 4 hours and Motrin every 6 hours (as long as your family doctor has told you that you can take it) for fever or pain. and straight to ER if unable to lower temp less than 101.0 after medication given *Warm salt water gargles may help to soothe the throat *Throat Lozenges? *Warm fluids like tea with honey may help to soothe the throat? *Sleep elevated *Humidifier/Vaporizer Your throat swab was sent for culture. Those results are typically sent to your primary care. Be sure to follow up in 2-3 days with your family doctor/primary care physician if no improvement so they can review those result and treat if necessary. If you don?t have a primary care doctor, I recommend you get one but in the mean time, you will have to return to a walk in clinic Follow up IMMEDIATELY for new or worsening symptoms or no Noticeable improvement over the next 48-72 hours. 911 for difficulty breathing or swallowing Clinical Impressions Clinical Impression: URI (upper respiratory infection) Qualifiers: URI type: unspecified URI Qualified Code(s): J06.9 - Acute upper respiratory infection, unspecified Instructions Patient Instructions: Sore Throat Discharge ED Provider: Paris Rich [facility] General Stated complaint: sore throat Mode of Arrival: Ambulatory Source of Information: Patient Limitations: No Limitations Time Seen by Provider: 03/09/23 11:06 Description of Symptoms (Recalled from Triage Doc. by RN): PATIENT C/O SORE THROAT WITH WHITE PATCHES. REPORTS A NEGATIVE AT HOME COVID TEST HEENT Symptoms (Recalled from RN notes): Yes Resp Symptoms (Recalled from RN notes): No Skin Symptoms (Recalled from RN notes): No MS Symptoms (Recalled from RN notes): No Functional Status (Recalled from RN notes): WNL History of Present Illness Provider Complaint: Patient states that she has been having sore throat for several days and noticed white patchy like areas in her throat like she had before when she had strep throat so today when they was still there she came in to get checked Related Data Home Medications Medication Instructions Recorded Confirmed cyclobenzaprine 5 mg tablet 5 mg PO NEEDED PRN Pain 03/21/20 03/09/23 metoprolol succinate 25 mg 12.5 mg PO DAILY Hypertension 02/26/21 03/09/23 tablet,extended release 24 hr celecoxib 200 mg capsule 200 mg PO DAILY Pain 12/03/21 03/09/23 duloxetine 30 mg capsule,delayed 30 mg PO DAILY Depression 11/06/22 03/09/23 release fexofenadine 180 mg tablet 180 mg PO DAILY Allergy Symptoms 03/09/23 03/09/23 (Liat Allergy) Previous Rx's Medication Instructions Recorded azithromycin 250 mg tablet See Rx Instructions PO .COMPLEX 5 03/09/23 (Zithromax Z-Bart) days #6 tabs Allergies Allergy/AdvReac
[2023-03-09 11:14] VITALS: BP 134/86; PULSE 91; RESP 18; TEMP 37.2; O2SAT 98
== END 2023-03-09 11:16 | disposition home or self-care (01) ==
PROVIDERS: Emergency Provider Nurse Practitioner; PCP Family Medicine
DX: J06.9 Acute upper respiratory infection, unspecified (principal); F17.210 Nicotine dependence, cigarettes, uncomplicated; I10 Essential (primary) hypertension; F41.9 Anxiety disorder, unspecified; F32.A Depression, unspecified
CPT/HCPCS: 87880; 99212; 99214; G0463

== ENCOUNTER → 2023-03-13 07:52 | Outpatient (CLI) | payer OTHER, SELFPAY ==
[2023-03-13 08:09] LABS: Basophils # 0.1 K/mm3 (0-0.2); Eosinophils # 0.4 K/mm3 (0.0-0.4); Eosinophils % 4.9 % (0.1-12.0); Hematocrit 43.6 % (37.0-47.0); Lymphocytes # 2.2 K/mm3 (0.7-4.5); Mean Corpuscular Hemoglobin 28.4 pg (27.0-31.2); Mean Corpuscular Volume 88.6 fl (81-99); Mean Platelet Volume 8.9 fl (7.4-10.4); Monocytes # 0.3 K/mm3 (0.1-1.0); Neutrophils # 4.8 K/mm3 (1.8-7.8); Neutrophils % 62.1 % (37.0-80.0); Platelet Count 296 K/mm3 (142-424); Red Blood Count 4.92 M/mm3 (4.20-5.40); Red Cell Distribution Width 13.6 % (11.5-17.5); White Blood Count 7.7 K/mm3 (4.8-10.8)
[2023-03-13 08:59] LABS: Chloride 103 mmol/L (98-107); Potassium 4.2 mmoL/L (3.5-5.1); Sodium 139 mmol/L (136-145)
[2023-03-13 09:01] LABS: Alanine Aminotransferase 16 U/L (12-78); Aspartate Amino Transferase 19 U/L (14-36); Blood Urea Nitrogen 10 mg/dl (7-17); Estimated Glomerular Filt Rate 81 ml/min (>60); GFR (African American) 98 ML/MIN (>60)
[2023-03-13 09:02] LABS: Albumin Level 3.8 g/dl (3.5-5.0); Albumin/Globulin Ratio 1.5 (1.1-1.8); Alkaline Phosphatase 98 U/L (38-126); Anion Gap 12.2 mEq/L (5-15); Bilirubin,Total 0.6 mg/dl (0.2-1.3); Calcium 9.8 mg/dl (8.4-10.2); Carbon Dioxide 28 mmol/L (22.0-30.0); Globulin 2.6 g/dL (1.3-3.2); Glucose 120 mg/dl (74-100); Total Protein,Serum 6.4 g/dl (6.3-8.2)
== END ==
LOC: LAB 07:52
PROVIDERS: PCP Family Medicine; Visit Provider Surgery
DX: K82.9 Disease of gallbladder, unspecified (principal)
CPT/HCPCS: 36415; 80053; 85025

== ENCOUNTER 2023-03-17 05:56 | Day surgery (SDC) | payer OTHER, SELFPAY ==
[2023-03-13 09:44] VITALS: BMI 32.3
[2023-03-17] VITALS (13 sets, daily range): BP systolic 126–144; BP diastolic 74–95; PULSE 77–101; RESP 15–22; TEMP 36.1–43; O2SAT 95–100
[2023-03-17 06:35] LABS: Urine Pregnancy, HCG Qual. Negative (Negative)
--- NOTE | 2023-03-17 06:43 | EXP.GEN.HP ---
HPI HPI HPI: Patient presents for cholecystectomy.? I had originally seen her as a referral for gallbladder on 02/26/2021.? At that time she had been having several acute pains across the upper abdomen and right upper quadrant with radiation into her back consistent with acute gallbladder attacks .? These have been worse when she eats spicy foods and fatty type foods.? She had undergone gallbladder ultrasound at that time which was negative for gallstones.? She had a HIDA scan performed which revealed an ejection fraction of 29% with some minimal reproduction of symptoms with CCK injection.? When she was initially seen in the office she wished to refrain from surgery and she was followed up in the office on 06/25/2021.? At that time due to some increasing symptoms of postprandial epigastric and right upper quadrant pain with associated nausea and diaphoresis she did wish to pursue surgery but wished to wait until after the holidays.? She did not present back to the office at that time.? She presented back at this time to discuss her gallbladder on 11/14/2022.? At that time she described being fatigued.? She had been on Ozempic and has stopped this.? She has had a few minor symptoms of symptomatology consistent with gallbladder. I informed her that fatigue is usually not a manifestation of gallbladder disease. I did have her undergo a gallbladder ultrasound as it had been several years. This reveals some mild fatty infiltration of the liver but otherwise unremarkable with no gallstones and normal common bile duct. She states that her fatigue improved being off of Ozempic. She does ask about her ultrasound showing fatty liver. When she was seen back in the office after her ultrasound on 11/26/2022 she wished to refrain from surgery. I had her tentatively return to the office in 3 months. Patient states that recently she has had some recurrent symptoms once again consistent with gallbladder attacks. This is characterized as epigastric and bilateral upper quadrant pain. It is not always postprandial. She would like to pursue cholecystectomy. [facility] Disclaimer: The information contained in this section may have been updated after the patient was seen, as this information can be updated by other users. Medical History Anxiety Depression History of gastroesophageal reflux (GERD) Hypertension Surgical History H/O wisdom tooth extraction History of section History of tonsillectomy Family History (Updated 03/17/23 @ 06:24 by Saranya Deal RN) Family history of CABG Family history of hypertension Family history of diabetes mellitus type II Social History (Updated 03/17/23 @ 06:26 by Saranya Deal RN) Smoking Status: Current every day smoker tobacco type: cigarettes packs per day: 1 pack-years: 20 alcohol intake: current substance use type: denies use current occupational status: employed Travel in the last 8 weeks: None household members: children housing: house lives independently: Yes marital status: single education level: college service: No prison: No caffeine: Yes special jacques needs: No agree to transfusion: No do you feel safe at home: Yes victim of physical abuse: No victim of emotional abuse: No victim of sexual abuse: No would you like helpful sources: No Review of Systems Review of Systems Review of systems:: pertinent systems reviewed and negative unless documented below Meds Home Medications and Allergies Home Medications Medication Instructions Recorded Confirmed Type cyclobenzaprine 5 mg tablet 10 mg PO HS Pain 03/21/20 03/13/23 History metoprolol succinate 25 mg 12.5 mg PO DAILY Hypertension 02/26/21 03/13/23 History tablet,extended release 24 hr duloxetine 30 mg capsule,delayed 30 mg PO DAILY Depression 11/06/22
--- NOTE | 2023-03-17 06:52 | EXP.ANES.CKL ---
[facility] Disclaimer: The information contained in this section may have been updated after the patient was seen, as this information can be updated by other users. Medical History Anxiety Depression History of gastroesophageal reflux (GERD) Hypertension Surgical History H/O wisdom tooth extraction History of section History of tonsillectomy Family History (Updated 03/17/23 @ 06:24 by Saranya Deal RN) Other Family history of CABG Family history of diabetes mellitus type II Family history of hypertension Social History (Updated 03/17/23 @ 06:26 by Saranya Deal RN) Smoking Status: Current every day smoker tobacco type: cigarettes packs per day: 1 pack-years: 20 alcohol intake: current substance use type: denies use current occupational status: employed Travel in the last 8 weeks: None household members: children housing: house lives independently: Yes marital status: single education level: college service: No half-way: No caffeine: Yes special jacques needs: No agree to transfusion: No do you feel safe at home: Yes victim of physical abuse: No victim of emotional abuse: No victim of sexual abuse: No would you like helpful sources: No [facility] Anesthesia Checklist Patient Identification Patient Identification: Arm Band and Family Structural Data Admitted From: Home Planned Operative Procedure/s: Lap Tierney Consent for Planned Operative Procedure(s) Verified: Yes Verified Documents: Surgical Consent and History and Physical NPO Status Verified Time NPO: 00:00 Additional verifications Patient : No Anesthesia Reactions: No Hx Blood Transfusions: No Blood Transfusion Reaction: No Cephalosporin Allergy: No Previous Colonoscopy: No Airway Assessment Mallampati Score:: Class I C-Spine Mobility Assessed: Yes TMJ Mobility Assessed: Yes Dentition: Good Dentition Neurological Assessment Level of Consciousness: Awake, Alert, Appropriate and Follows Commands Hx Seizures: No Numbness or tingling in extremities: No Anesthesia Plan Anesthesia Risk discussed: Yes ASA Class: II Anesthesia Type: General
--- NOTE | 2023-03-17 08:19 | P.PNANES_ITS ---
[facility] Anesthesia Record Part I Anesthesia Record I Intake, IV Amount: 1,000 Hydration: Adequate Estimated blood loss (mL): 2 Urine output (mL): 0 Blood Products used (#): none Blood Pressure: 140/86 SaO2: 95 Pulse Rate: 92 Airway Patency: Patent Respiratory Rate: 22 Temperature: 97 F Pain scale (0-10): 0 Nausea: No Vomiting: No Patient is:: Drowsy and Stable Stable to PACU at:: 08:15
--- NOTE | 2023-03-17 08:49 | EXP.OP.NOTE ---
Date of procedure: 03/17/23 Pre-op Diagnosis:: Gallbladder disease Post-op Diagnosis:: Same Procedure performed:: Laparoscopic cholecystectomy Surgeon:: Dain Ortega MD ARTIST MANNEQUIN COLORING:: Other Anesthesia: GETA Estimated blood loss (mL): 15 Clinical Note:: Patient presents for cholecystectomy.? I had originally seen her as a referral for gallbladder on 02/26/2021.? At that time she had been having several acute pains across the upper abdomen and right upper quadrant with radiation into her back consistent with acute gallbladder attacks .? These have been worse when she eats spicy foods and fatty type foods.? She had undergone gallbladder ultrasound at that time which was negative for gallstones.? She had a HIDA scan performed which revealed an ejection fraction of 29% with some minimal reproduction of symptoms with CCK injection.? When she was initially seen in the office she wished to refrain from surgery and she was followed up in the office on 06/25/2021.? At that time due to some increasing symptoms of postprandial epigastric and right upper quadrant pain with associated nausea and diaphoresis she did wish to pursue surgery but wished to wait until after the holidays.? She did not present back to the office at that time.? She presented back at this time to discuss her gallbladder on 11/14/2022.? At that time she described being fatigued.? She had been on Ozempic and has stopped this.? She has had a few minor symptoms of symptomatology consistent with gallbladder. I informed her that fatigue is usually not a manifestation of gallbladder disease. I did have her undergo a gallbladder ultrasound as it had been several years. This reveals some mild fatty infiltration of the liver but otherwise unremarkable with no gallstones and normal common bile duct. She states that her fatigue improved being off of Ozempic. She does ask about her ultrasound showing fatty liver. When she was seen back in the office after her ultrasound on 11/26/2022 she wished to refrain from surgery. I had her tentatively return to the office in 3 months. Patient states that recently she has had some recurrent symptoms once again consistent with gallbladder attacks. This is characterized as epigastric and bilateral upper quadrant pain. It is not always postprandial. She would like to pursue cholecystectomy. Operative findings:: She had a somewhat thickened gallbladder with omental adhesions and duodenum tented to the neck of the gallbladder. She had some mild to moderate hepatomegaly and findings consistent with hepatic steatosis. Operative note:: Patient was taken to the operating room. She was given preoperative intravenous antibiotics. In the operating room she was placed in a supine position. General anesthesia was induced via endotracheal tube. Abdomen was prepped and draped in the standard surgical fashion. Subumbilical skin incision was made. Dissection was carried down to the fascia. While performing abdominal wall lift Veress needle was inserted. CO2 pneumoperitoneum was achieved to 15 mmHg. 11 mm optical trocar was inserted at the umbilicus. Intraperitoneal contents were visualized. She was positioned in reverse Trendelenburg and left side down. A couple of 5 mm trocars were inserted in the right upper abdomen. 10 mm trocar was inserted in the epigastrium. There were findings consistent with mild hepatomegaly and steatosis of the liver. Gallbladder was grasped retracted anteriorly and superiorly over the dome of the liver. There were some flimsy adhesions of omentum to the gallbladder which were taken down using blunt dissection. Duodenum was tented up due to adhesions to the neck of the gallbladder and this was carefully taken down. Infundibulum/Deshpande's pouch the gallbladder was retracted anterior laterally. Blunt dissection was carried out at the neck of the gallbladder bluntly incising the visceral peritoneum. Dissection was carried out isolating the cystic duct a
--- NOTE | 2023-03-17 09:22 | SUR.PHASEII ---
Pt with C/O intermittent chest pressure, denies SOA, nausea. Says has incisional pain at 3/10. Notified [place] CRNA and came to bedside. New order to apply O2 at 2L and give Morphine 2mg IV and continue to monitor. If gets worse get 12 lead EKG.
--- NOTE | 2023-03-17 09:32 | SUR.PHASEII ---
Pt states chest pressure is better, continues to rate incisional pain 3/10. No SOA. Resting with eyes closed. father at bedside.
--- NOTE | 2023-03-17 14:35 | EXP.ANES.I ---
[facility] Anesthesia Record Part I Anesthesia Record I Intake, IV Amount: 1,700 Hydration: Adequate Estimated blood loss (mL): 75 Urine output (mL): 0 Blood Products used (#): none Blood Pressure: 130/102 SaO2: 92 Pulse Rate: 87 Airway Patency: Patent Respiratory Rate: 24 Temperature: 99.3 F Pain scale (0-10): 10 Nausea: No Vomiting: No Patient is:: Stable Stable to PACU at:: 14:10
--- NOTE | 2023-03-17 15:28 | EXP.ANES.II ---
[facility] Anesthesia Record Part II Anesthesia Record Part II Discharge Time: 08:45 Destination: Surgical Day Care (OP Surgery) PACU nurse assessment reviewed?: Yes Patient Condition:: Good Anesthesia Complications:: None Swallowing reflex intact?: Yes Airway Patency: Patent Cyanosis?: No Blood Pressure: 142/88 SaO2: 100 Respiratory Rate: 15 Pulse Rate: 88 Temperature: 97.7 F Mental Status: Alert & Oriented Pain level:: 0 Nausea and/or vomitting:: None Intake, IV Amount: 0 Hydration: Adequate
== END 2023-03-17 09:45 | disposition home or self-care (01) ==
PROVIDERS: PCP Family Medicine; Visit Provider Surgery
PROC: 0FT44ZZ Resection of Gallbladder, Percutaneous Endoscopic Approach (ICD-10-PCS; CPT 47562; principal; 2023-03-17 07:30)
DX: K81.2 Acute cholecystitis with chronic cholecystitis (principal); R16.0 Hepatomegaly, not elsewhere classified; K76.0 Fatty (change of) liver, not elsewhere classified
CPT/HCPCS: 47562; 81025; 96374; J2405

== ENCOUNTER 2023-03-17 13:44 | Emergency (ER) | payer OTHER, SELFPAY ==
[2023-03-17 13:50] VITALS: BP 137/87; PULSE 96; RESP 18; TEMP 36.9; O2SAT 100; BMI 33.0
[2023-03-17 14:08] VITALS: BP 137/87; PULSE 96; RESP 18; TEMP 36.9; O2SAT 100
--- NOTE | 2023-03-17 14:08 | EXP.UTC ---
Discharge Plan Disposition Patient Disposition: Home, Self-Care Condition: Good Prescriptions Prescriptions: No Action cyclobenzaprine 5 mg tablet 10 mg PO HS Patient Comments: TAKE ONE TABLET BY MOUTH THREE TIMES DAILY NEEDED MAY CAUSE DROWSINESS metoprolol succinate 25 mg tablet extended release 24 hr 12.5 mg PO DAILY duloxetine 30 mg capsule,delayed release(DR/EC) 30 mg PO DAILY Patient Comments: TAKE ONE CAPSULE BY MOUTH EVERY DAY omeprazole 20 mg Capsule,Delayed Release(Dr/Ec) 20 mg PO DAILY fexofenadine [Liat Allergy] 60 mg Tablet 60 mg PO Q12H hydrocodone-acetaminophen 5-325 mg Tablet 1 - 2 tab PO Q6H PRN (Reason: Pain) Qty: 17 0RF Referrals Follow up/Referrals: Chico Drew MD [Primary Care Provider] - See instructions Activity Restrictions/Add. Instructions Additional Instructions/Restrictions: Follow up with the Surgery Clinic as you was advised Call Surgical clinic if bleeding starts again Straight to ER if any life threatening symptoms Further instructions per discharge this morning from surgery Clinical Impressions Clinical Impression: Visit for wound check Discharge ED Provider: Paris Rich [facility] General Stated complaint: post op 03/17, incision open Mode of Arrival: Ambulatory Source of Information: Patient Limitations: No Limitations Time Seen by Provider: 03/17/23 14:08 Description of Symptoms (Recalled from Triage Doc. by RN): PATIENT S/P CHOLECYSTECTOMY THIS MORNING AND STATES HER DRESSING WAS SATURATED WITH BLOOD HEENT Symptoms (Recalled from RN notes): No Resp Symptoms (Recalled from RN notes): No Skin Symptoms (Recalled from RN notes): Yes MS Symptoms (Recalled from RN notes): No Functional Status (Recalled from RN notes): WNL History of Present Illness Provider Complaint: Patient states that she had a Cholecystectomy earlier this morning and she noticed after getting home that the bandage on her naval area was saturated with blood States that she called the surgical clinic and they told her to come here and get it looked at Denies pain Related Data Home Medications Medication Instructions Recorded Confirmed cyclobenzaprine 5 mg tablet 10 mg PO HS Pain 03/21/20 03/13/23 metoprolol succinate 25 mg 12.5 mg PO DAILY Hypertension 02/26/21 03/13/23 tablet,extended release 24 hr duloxetine 30 mg capsule,delayed 30 mg PO DAILY Depression 11/06/22 03/13/23 release omeprazole 20 mg capsule,delayed 20 mg PO DAILY GERD 03/13/23 03/13/23 release fexofenadine 60 mg tablet (Liat 60 mg PO Q12H allergies 03/17/23 03/17/23 Allergy) Previous Rx's Medication Instructions Recorded hydrocodone 5 mg-acetaminophen 325 1 - 2 tab PO Q6H PRN Pain #17 tabs 03/17/23 mg tablet Allergies Allergy/AdvReac Type Severity Reaction Status Date / Time amoxicillin Allergy Verified 03/17/23 06:29 Penicillins Allergy Verified 03/17/23 06:29 Worker's Comp Is this a Worker's Comp case?: No [facility] Disclaimer: The information contained in this section may have been updated after the patient was seen, as this information can be updated by other users. Medical History Anxiety Depression History of gastroesophageal reflux (GERD) Hypertension Surgical History H/O wisdom tooth extraction History of section History of tonsillectomy Family History (Updated 03/17/23 @ 06:24 by Saranya Deal RN) Other Family history of CABG Family history of diabetes mellitus type II Family history of hypertension Social History (Updated 03/17/23 @ 06:26 by Saranya Deal RN) Smoking Status: Current every day smoker tobacco type: cigarettes packs per day: 1 pack-years: 20 alcohol intake: current substance use type: denies use current occupational status: employed Travel in the last 8
== END 2023-03-17 14:10 | disposition home or self-care (01) ==
PROVIDERS: Emergency Provider Nurse Practitioner; PCP Family Medicine
DX: F17.210 Nicotine dependence, cigarettes, uncomplicated; I10 Essential (primary) hypertension; F41.9 Anxiety disorder, unspecified; F32.A Depression, unspecified; K21.9 Gastro-esophageal reflux disease without esophagitis; Z51.89 Encounter for other specified aftercare; L76.22 Postprocedural hemorrhage of skin and subcutaneous tissue following other procedure
CPT/HCPCS: 99211; 99212; G0463

== ENCOUNTER 2023-06-01 12:21 | Emergency (ER) | payer OTHER, SELFPAY ==
[2023-06-01 12:30] VITALS: BP 134/87; PULSE 102; RESP 19; TEMP 37; O2SAT 96; BMI 33.9
--- NOTE | 2023-06-01 12:44 | EXP.UTC ---
Discharge Plan Disposition Patient Disposition: Home, Self-Care Condition: Good Prescriptions Prescriptions: New methylprednisolone [Medrol (Bart)] 4 mg tablets,dose pack See Rx Instructions .Route .COMPLEX 6 Days Qty: 21 0RF Rx Instructions: taper pack; cefdinir 300 mg capsule 300 mg PO BID Qty: 20 0RF No Action cyclobenzaprine 5 mg tablet 10 mg PO HS Patient Comments: TAKE ONE TABLET BY MOUTH THREE TIMES DAILY NEEDED MAY CAUSE DROWSINESS metoprolol succinate 25 mg tablet extended release 24 hr 12.5 mg PO DAILY omeprazole 20 mg Capsule,Delayed Release(Dr/Ec) 20 mg PO DAILY fexofenadine [Liat Allergy] 60 mg Tablet 60 mg PO Q12H citalopram 10 mg Tablet 10 mg PO DAILY Referrals Follow up/Referrals: Chico Drew MD [Primary Care Provider] - See instructions Activity Restrictions/Add. Instructions Additional Instructions/Restrictions: *Monitor Temp, Over the counter Motrin or Tylenol as directed/as needed Tylenol every 4 hours and Motrin every 6 hours (as long as your family doctor has told you that you can take it) for fever or pain. and straight to ER if unable to lower temp less than 101.0 after medication given *Warm salt water gargles may help to soothe the throat *Throat Lozenges? *Warm fluids like tea with honey may help to soothe the throat? *Sleep elevated *Humidifier/Vaporizer Follow up IMMEDIATELY for new or worsening symptoms or no Noticeable improvement over the next 48-72 hours. 911 for difficulty breathing or swallowing You were tested for today for Upper Respiratory Panel with COVID19 your test result should be back in the next 24 you may view your results on the [facility] if your COVID or Flu is positive you must Quarantine for 5 days Clinical Impressions Clinical Impression: Upper respiratory symptom Stand Alone Forms Stand Alone Forms: Work/School Release Instructions Patient Instructions: Sore Throat, DI for Fever (Symptom) -- Adult Discharge ED Provider: [place] [facility] [place] General Stated complaint: cough, congestion, left ear pain Mode of Arrival: Ambulatory Source of Information: Patient Limitations: No Limitations Time Seen by Provider: 10/29/23 12:44 Description of Symptoms (Recalled from Triage Doc. by RN): Pt is on day 4 of zpak. She feels like she is getting worse with the respiratory infection. She stated she is having left ear pain, sore throat, and fatigue. She has had this for 14 days. HEENT Symptoms (Recalled from RN notes): Yes Resp Symptoms (Recalled from RN notes): No Skin Symptoms (Recalled from RN notes): No MS Symptoms (Recalled from RN notes): No Functional Status (Recalled from RN notes): n/a History of Present Illness Provider Complaint: Patient states that she has been sick for about 14 days States that she thought it was just a virus but when she was still sick last week she went to her PCP and was given Zpack States that she is almost done with it and not got any better States that she has started with pain in her left ear, sore throat and her respiratory infection feels like it is getting worse States that today she wasnt feeling any better so she came in Related Data Home Medications Medication Instructions Recorded Confirmed cyclobenzaprine 5 mg tablet 10 mg PO HS Pain 03/21/20 06/01/23 metoprolol succinate 25 mg 12.5 mg PO DAILY Hypertension 02/26/21 06/01/23 tablet,extended release 24 hr omeprazole 20 mg capsule,delayed 20 mg PO DAILY GERD 03/13/23 06/01/23 release fexofenadine 60 mg tablet (Liat 60 mg PO Q12H allergies 03/17/23 06/01/23 Allergy) citalopram 10 mg tablet 10 mg PO DAILY Depression 06/01/23 06/01/23 Previous Rx's Medication Instructions Recorded cefdinir 300 mg capsule 300 mg PO BID #20 caps 06/01/23 methylprednisolone 4 mg tablets in See Rx Instructions .Route 06/01/23 a dose pack (Medrol (Bart)) .C
[2023-06-01 13:12] VITALS: BP 134/87; PULSE 102; RESP 18; TEMP 37; O2SAT 96
[2023-06-01 13:12] LABS: Adenovirus,PCR Not Detected (NotDetected); Bordetella Pertussis Not Detected (NotDetected); Chlamydophila Pneumoniae, PCR Not Detected (NotDetected); Coronavirus 19, PCR Not Detected (NotDetected); Coronavirus 229E Not Detected (NotDetected); Coronavirus NL63 Not Detected (NotDetected); Coronavirus OC43 Not Detected (NotDetected); Coronovirus HKU1,PCR Not Detected (NotDetected); Human Metapneumovirus Not Detected (NotDetected); Influenza A, PCR Not Detected (NotDetected); Influenza AH1, 2009 Not Detected (NotDetected); Influenza AH1, PCR Not Detected (NotDetected); Influenza AH3,PCR Not Detected (NotDetected); Influenza B, PCR Not Detected (NotDetected); Mycoplasma Pneumoniae, PCR Not Detected (NotDetected); Parainfluenza 1, PCR Not Detected (NotDetected); Parainfluenza 2, PCR Not Detected (NotDetected); Parainfluenza 3, PCR Not Detected (NotDetected); Parainfluenza 4, PCR Not Detected (NotDetected); Respiratory Syncytial Virus Not Detected (NotDetected); Rhinovirus/Enterovirus Not Detected (NotDetected)
== END 2023-06-01 13:10 | disposition home or self-care (01) ==
PROVIDERS: Emergency Provider Nurse Practitioner; PCP Family Medicine
DX: H66.92 Otitis media, unspecified, left ear (principal); J06.9 Acute upper respiratory infection, unspecified; R53.83 Other fatigue; F17.210 Nicotine dependence, cigarettes, uncomplicated; K21.9 Gastro-esophageal reflux disease without esophagitis; I10 Essential (primary) hypertension; F32.A Depression, unspecified
CPT/HCPCS: 87581; 87632; 87635; 87798; 99212; 99214; G0463

== ENCOUNTER 2023-08-31 16:53 | Emergency (ER) | payer OTHER, SELFPAY ==
[2023-08-31 17:10] VITALS: BP 143/98; PULSE 117; RESP 18; TEMP 37.4; O2SAT 98; BMI 33.9
--- NOTE | 2023-08-31 17:12 | EXP.UTC ---
Discharge Plan Disposition Patient Disposition: Home, Self-Care Condition: Good Prescriptions Prescriptions: New doxycycline hyclate [doxycycline hyclate] 100 mg capsule 100 mg PO Q12 10 Days Qty: 20 0RF fluconazole 150 mg tablet 150 mg PO ONCE Qty: 1 5RF methylprednisolone 4 mg Tablets,Dose Pack 4 mg PO DIRECTED 6 Days Qty: 21 0RF Rx Instructions: Take 1 pack as directed for 6 days No Action cyclobenzaprine 5 mg tablet 10 mg PO HS Patient Comments: TAKE ONE TABLET BY MOUTH THREE TIMES DAILY NEEDED MAY CAUSE DROWSINESS metoprolol succinate 25 mg tablet extended release 24 hr 12.5 mg PO DAILY omeprazole 20 mg Capsule,Delayed Release(Dr/Ec) 20 mg PO DAILY fexofenadine [Liat Allergy] 60 mg Tablet 60 mg PO Q12H celecoxib 200 mg capsule 200 mg PO DAILY Patient Comments: TAKE ONE CAPSULE BY MOUTH EVERY DAY --TAKE WITH FOOD-- azithromycin 250 mg tablet See Rx Instructions .ROUTE .COMPLEX Patient Comments: TAKE 2 TABLETS BY MOUTH ON DAY 1, THEN TAKE 1 TABLET DAILY ON DAYS 2-5 Rx Instructions: TAKE 2 TABLETS BY MOUTH ON DAY 1, THEN TAKE 1 TABLET DAILY ON DAYS 2-5 duloxetine 30 mg capsule,delayed release(DR/EC) 30 mg PO DAILY Patient Comments: TAKE ONE CAPSULE BY MOUTH EVERY DAY citalopram 10 mg Tablet 10 mg PO DAILY Referrals Follow up/Referrals: Chico Drew MD [Primary Care Provider] - See instructions Activity Restrictions/Add. Instructions Additional Instructions/Restrictions: Drink plenty of fluids. Take tylenol or ibuprofen for pain or fever. Take the medications as directed. Follow up with your regular doctor. GO TO THE ER FOR ANY WORSENING SYMPTOMS We will culture the urine. That will tell what bacteria is causing your infection and which antibiotics will treat it best. Sometimes the first antibiotic we prescribe turns out to not work against different bacteria. So, make sure you follow up within 3 days if you are not getting better. Clinical Impressions Clinical Impression: Pharyngitis Instructions Patient Instructions: Sore Throat, DI for Pharyngitis/Tonsillopharyngitis -- Adult, Doxycycline Discharge ED Provider: Kyle Rodriguez [facility] General Stated complaint: sore throat Time Seen by Provider: 08/31/23 17:12 History of Present Illness Provider Complaint: She states that she has has had sore throat for the past 4 days. She was started on azithromycin for strep. She states that she is not getting better. She also states that she has been exposed to gonorrhea and she is having abnormal vaginal discharge. Related Data Home Medications Medication Instructions Recorded Confirmed cyclobenzaprine 5 mg tablet 10 mg PO HS Pain 03/21/20 06/01/23 metoprolol succinate 25 mg 12.5 mg PO DAILY Hypertension 02/26/21 08/31/23 tablet,extended release 24 hr omeprazole 20 mg capsule,delayed 20 mg PO DAILY GERD 03/13/23 08/31/23 release fexofenadine 60 mg tablet (Liat 60 mg PO Q12H allergies 03/17/23 08/31/23 Allergy) citalopram 10 mg tablet 10 mg PO DAILY Depression 06/01/23 06/01/23 azithromycin 250 mg tablet See Rx Instructions .Route .COMPLEX 08/31/23 08/31/23 celecoxib 200 mg capsule 200 mg PO DAILY 08/31/23 08/31/23 duloxetine 30 mg capsule,delayed 30 mg PO DAILY 08/31/23 08/31/23 release Previous Rx's Medication Instructions Recorded doxycycline hyclate 100 mg capsule 100 mg PO Q12 10 days #20 caps 08/31/23 fluconazole 150 mg tablet 150 mg PO ONCE 1 dose #1 tab 08/31/23 methylprednisolone 4 mg tablets in 4 mg PO DIRECTED 6 days #21 tabs 08/31/23 a dose pack Allergies Allergy/AdvReac Type Severity Reaction Status Date / Time amoxicillin Allergy Verified 08/31/23 17:25 Penicillins Allergy Verified 08/31/23 17:25 [facility] Disclaimer: The information contained in this section may have been updated after the patient was seen, as this information can be updated by other users. Medical History (Updated 08/31/23 @ 17:36 by Kyle Rodriguez APRN) Anxiety Depression History of gastroesophageal reflux (GERD) Hypertension Surgical History H/O wisdom tooth extraction History of section History of laparoscopic cholecystectomy History of tonsillectomy Family History Other Family history of CABG Family history of diabetes mellitus type II Family history of hypertension Social History Smoking Status: Current every day smoker tobacco type: cigarettes packs per day: 1 alcohol intake: current substance use type: denies use current occupational status: employed Travel in the last 8 weeks: None household members: children housing: house lives independently: Yes marital status: single education level: college service: No assisted: No caffeine: Yes special jacques needs: No agree to transfusion: No do you feel safe at home: Yes victim of physical abuse: No victim of emotional abuse: No victim of sexual abuse: No would you like helpful sources: No ROS Obtained: Yes All systems reviewed & no additional complaints except as documented Constitutional Constitutional: Reports system reviewed and no additional complaints, except as documented, Denies chills and Denies fever(s) Eyes Eyes: Denies eye discharge ENT Ears, Nose, Mouth, and Throat: Reports as per HPI, Denies dysphagia, Reports sore throat and Denies throat swelling Cardiovascular Cardiovascular: Denies chest pain and Denies dyspnea Respiratory Respiratory: Denies chest congestion, Denies cough and Denies dyspnea Gastrointestinal Gastrointestingal: Denies abdominal pain, constipation, diarrhea, dysphagia, nausea or vomiting Genitourinary Female Genitourinary: Reports dysuria, Reports urinary frequency, Denies urinary incontinence, Reports urinary hesitancy, Denies urinary urgency, Reports vaginal discharge, Reports vaginal odor and Reports vaginal pruritus Musculoskeletal Musculoskeletal: Denies arthralgias and Reports back pain Integumentary/Breasts Skin/Breast: Denies rash Neurologic Neurologic: Denies paresthesias Allergic/Immunologic Allergic/Immunologic: Denies throat swelling Physical Exam General General appearance: alert and in no apparent distress Head Head exam: atraumatic, normocephalic and normal inspection Eye Eye exam: Present normal appearance, PERRL and EOMI ENT ENT exam: Present mucous membranes moist and normal external ear exam Expanded ENT Exam TM/Canal exam: Bilateral TM: erythema and bulging Nose exam: Absent sinus tenderness Mouth exam: Present normal external inspection; Absent drooling Teeth exam: Present normal inspection Throat exam: Present tonsillar erythema, tonsillomegaly and tonsillar exudate Neck Neck exam: Present normal inspection, full ROM and trachea midline; Absent tenderness, meningismus or lymphadenopathy Chest Chest inspection: Present normal inspection and symmetric chest wall rise; Absent tenderness Respiratory Respiratory exam: Present normal lung sounds bilaterally; Absent respiratory distress, wheezes, stridor or accessory muscle use Cardiovascular Cardiovascular exam: Present regular rate and normal rhythm; Absent systolic murmur or diastolic murmur Abdominal Exam Abdominal exam: Present soft and normal bowel sounds; Absent distention, tenderness, guarding, rebound or rigidity Extremities Exam Extremities exam: Present normal inspection and normal capillary refill; Absent calf tenderness Back Exam Back exam: Present normal inspection and full ROM; Absent tenderness, CVA tenderness (R) or CVA tenderness (L) Neurological Exam Neurological exam: Present alert, oriented X3 and CN II-XII intact Psychiatric Psychiatric exam: Present normal affect and normal mood Skin Skin exam: Present warm, dry, intact and normal color Medical Decision Making Medical Records Medical records reviewed: No I reviewed the patient's medical records. Dada Patel Pt receiving controlled substance: No Lab Data Lab results reviewed: Yes I reviewed the patient's lab results.
[2023-08-31 17:28] LABS: Apearance,Urine Clear (Clear); Bilirubin,Urine Negative (Negative); Blood, Urine Negative (Negative); Color,Urine Yellow (Yellow); Glucose,Urine (UA) Negative (Negative); Ketones,Urine Negative (Negative); PH,Urine 6.5 (5.0-8.5); Protein,Urine Negative (Negative); UTC Leukocyte Esterase,Urine Negative (Negative); UTC Nitrate,Urine Negative (Negative); Urobilinogen,Urine 0.2 EU/dl (0.2)
[2023-08-31 17:29] LABS: UTC Strep Screen (Rapid) Negative (Negative)
[2023-08-31 17:30] LABS: UTC Influenza A Antigen Negative (Negative); UTC Influenza B Antigen Negative (Negative)
[2023-08-31 17:42] VITALS: BP 143/98; PULSE 117; RESP 18; TEMP 37.4; O2SAT 98
[2023-09-03 06:31] LABS: Neisseria gonorrhoeae, NAA Negative (Negative)
== END 2023-08-31 17:42 | disposition home or self-care (01) ==
PROVIDERS: Emergency Provider Nurse Practitioner Family; PCP Family Medicine
DX: J02.9 Acute pharyngitis, unspecified (principal); B96.89 Other specified bacterial agents as the cause of diseases classified elsewhere; R30.0 Dysuria; R35.0 Frequency of micturition; R39.11 Hesitancy of micturition; N89.8 Other specified noninflammatory disorders of vagina; I10 Essential (primary) hypertension; F17.210 Nicotine dependence, cigarettes, uncomplicated
CPT/HCPCS: 81003; 87086; 87491; 87591; 87804; 87880; 99212; 99214; G0463

== ENCOUNTER 2023-10-23 15:38 | Emergency (ER) | payer OTHER, SELFPAY ==
[2023-10-23 16:00] VITALS: BP 130/75; PULSE 95; RESP 19; TEMP 36.8; O2SAT 98; BMI 33.6
--- NOTE | 2023-10-23 16:12 | ED_ITS ---
Discharge Plan Disposition Patient Disposition: Home, Self-Care Condition: Good Prescriptions Prescriptions: New nxudfyleieqrdkm-[id number]-ME [Bromfed DM] 2-30-10 mg/5 mL syrup 10 ml PO Q6H PRN (Reason: cold symptoms) Qty: 240 0RF No Action cyclobenzaprine 5 mg tablet 10 mg PO HS Patient Comments: TAKE ONE TABLET BY MOUTH THREE TIMES DAILY NEEDED MAY CAUSE DROWSINESS metoprolol succinate 25 mg tablet extended release 24 hr 12.5 mg PO DAILY celecoxib 200 mg capsule 200 mg PO DAILY Patient Comments: TAKE ONE CAPSULE BY MOUTH EVERY DAY --TAKE WITH FOOD-- duloxetine 30 mg capsule,delayed release(DR/EC) 30 mg PO DAILY Patient Comments: TAKE ONE CAPSULE BY MOUTH EVERY DAY Referrals Follow up/Referrals: Chico Drew MD [Primary Care Provider] - See instructions Activity Restrictions/Add. Instructions Additional Instructions/Restrictions: * Lots of rest * Increase Fluids water, Gatorade, powerade, pedialyte,if infant/toddler/child * Alternate Tylenol and / or ibuprofen as discussed for fever, aches, chills Follow up IMMEDIATELY with your family doctor for new or worsening Symptoms OR no noticeable improvement over the next 48-72 hours, 911 for difficulty or breathing * You or your child area contagious until no fever, aches, chills for 24 hours with medication for symptoms * Help Prevent the spread of influenza: * ?Wash your hands often. Use soap and water. Wash your hands after you use the bathroom, change a child's diapers, or sneeze. Wash your hands before you prepare or eat food. Use gel hand cleanser that has 60% alcohol, when soap and water are not available. Do not touch your eyes, nose, or mouth unless you have washed your hands first. * Cover your mouth when you sneeze or cough. Cough into a tissue or the bend of your arm. If you use a tissue, throw it away immediately and wash your hands. * Clean shared items with a germ-killing cesspool cleaner. Clean table surfaces, doorknobs, and light switches. Do not share towels, silverware, and dishes with people who are sick. Wash bed sheets, towels, silverware, and dishes with soap and water. * Wear a mask over your mouth and nose if you are sick. The face mask may help protect others from becoming infected with the flu. Wear the mask when in common areas of your home or if you seek care with a healthcare provider. * Stay away from others if you are sick. Stay at home until 24 hours after your fever and symptoms are gone. ? Clinical Impressions Clinical Impression: Influenza Stand Alone Forms Stand Alone Forms: Work/School Release Instructions Patient Instructions: DI for Influenza -- Adult Discharge ED Provider: Paris Rich [facility] HPI General Stated complaint: exp flu-chills, cough, body aches Mode of Arrival: Ambulatory Source of Information: Patient Limitations: No Limitations Time Seen by Provider: 10/23/23 16:12 Description of Symptoms (Recalled from Triage Doc. by RN): PATIENT C/O BODY ACHES, CHILLS, FEVER AND COUGH SINCE LAST NIGHT. RECENTLY EXPOSED TO FLU HEENT Symptoms (Recalled from RN notes): No Resp Symptoms (Recalled from RN notes): Yes Skin Symptoms (Recalled from RN notes): No MS Symptoms (Recalled from RN notes): No Functional Status (Recalled from RN notes): WNL History of Present Illness Provider Complaint: Patient states that one of her children has the flu and last night she started with symptoms States that she is having body aches, chills, cough, and fever so today when she was having symptoms so she came in to get checked Related Data Home Medications Medication Instructions Recorded Confirmed cyclobenzaprine 5 mg tablet 10 mg PO HS Pain 03/21/20 10/23/23 metoprolol succinate 25 mg 12.5 mg PO DAILY Hypertension 02/26/21 10/23/23 tablet,extended release 24 hr celecoxib 200 mg capsule 200 mg PO DAILY 08/31/23 10/23/23 duloxetine 30 mg capsule,delayed 30 mg PO DAILY 08/31/23 10/23/23 release Previous Rx's Medication Instructions Recorded filbcjtknkpcsru-oiesvuzucpeezbw-YZ 10 ml PO Q6H PRN cold symptoms 10/23/23 2 mg-30 mg-10 mg/5 mL oral syrup #240 mL (Bromfed DM) Allergies Allergy/AdvReac Type Severity Reaction Status Date / Time amoxicillin Allergy Verified 09/29/23 15:01 Penicillins Allergy Verified 09/29/23 15:01 Worker's Comp Is this a Worker's Comp case?: No PFSH PFS Disclaimer: The information contained in this section may have been updated after the pat ient was seen, as this information can be updated by other users. Medical History Anxiety Depression History of gastroesophageal reflux (GERD) Hypertension Surgical History H/O wisdom tooth extraction History of section History of laparoscopic cholecystectomy History of tonsillectomy Family History (Updated 09/29/23 @ 15:10 by Becca Miller) Grandfather Cancer Other Family history of CABG Family history of diabetes mellitus type II Family history of hypertension Social History (Updated 09/29/23 @ 15:11 by Becca Miller) Smoking Status: Current every day smoker tobacco type: cigarettes packs per day: 1 alcohol intake: current substance use type: denies use current occupational status: employed Travel in the last 8 weeks: None household members: children housing: house lives independently: Yes marital status: single education level: college service: No halfway: No caffeine: Yes special jacques needs: No agree to transfusion: No do you feel safe at home: Yes victim of physical abuse: No victim of emotional abuse: No victim of sexual abuse: No would you like helpful sources: No ROS Obtained: Yes All systems reviewed & no additional complaints except as documented and Yes Systems reviewed as appropriate & no additional complaints except as documented Constitutional Constitutional: Reports system reviewed and no additional complaints, except as documented, Reports as per HPI, Reports body ache, Reports chills and Reports fever(s) ENT Ears, Nose, Mouth, and Throat: Reports system reviewed and no additional complaints, except as documented, Reports as per HPI and Reports nasal congestion Cardiovascular Cardiovascular: Reports system reviewed and no additional complaints, except as documented and Reports as per HPI Respiratory Respiratory: Reports system reviewed and no additional complaints, except as documented and Reports as per HPI Gastrointestinal Gastrointestingal: Reports system reviewed and no additional complaints, except as documented and as per HPI Physical Exam General General appearance: alert and in no apparent distress ENT ENT exam: Present mucous membranes moist Respiratory Respiratory exam: Present normal lung sounds bilaterally; Absent respiratory distress or wheezes Cardiovascular Cardiovascular exam: Present regular rate, normal rhythm and normal heart sounds Neurological Exam Neurological exam: Present alert, oriented X3 and normal gait Medical Decision Making Dada Inquiry Pt receiving controlled substance: No Dada was queried for this patient: No Vital Signs: 10/23/23 16:00 Temperature 98.3 F Temperature Source Oral Pulse Rate [Left Brachial] 95 H Respiratory Rate 19 Blood Pressure [Left Arm] 130/75 Blood Pressure Mean [Left Arm] 93 Blood Pressure Source [Left Arm] Automatic Cuff Blood Pressure Position [Left Arm] Sitting 02 Sat by Pulse Oximetry 98 Oxygen Delivery Method Room Air Lab Data Lab results reviewed: Yes I reviewed the patient's lab results.
[2023-10-23 16:22] LABS: UTC Influenza A Antigen Negative (Negative); UTC Influenza B Antigen Negative (Negative)
[2023-10-23 16:25] VITALS: BP 130/75; PULSE 95; RESP 19; TEMP 36.8; O2SAT 98
== END 2023-10-23 16:30 | disposition home or self-care (01) ==
PROVIDERS: Emergency Provider Nurse Practitioner; PCP Family Medicine
DX: J10.1 Influenza due to other identified influenza virus with other respiratory manifestations (principal); R50.9 Fever, unspecified; R05.9 Cough, unspecified; R09.81 Nasal congestion; M79.18 Myalgia, other site; F17.210 Nicotine dependence, cigarettes, uncomplicated; I10 Essential (primary) hypertension
CPT/HCPCS: 87804; 99212; 99214; G0463

== ENCOUNTER → 2024-02-16 15:30 | Outpatient (CLI) | payer OTHER, SELFPAY | LOC: SL 15:31 | PROVIDERS: PCP Family Medicine; Visit Provider Family Medicine | DX: R06.83 Snoring (principal) | CPT/HCPCS: G0399 ==

== ENCOUNTER 2024-03-15 15:01 | Emergency (ER) | payer OTHER, SELFPAY ==
[2024-03-15 15:05] VITALS: BP 152/85; PULSE 100; RESP 21; TEMP 37.1; O2SAT 98; BMI 33.2
--- NOTE | 2024-03-15 15:15 | ED_ITS ---
Discharge Plan Disposition Patient Disposition: Home, Self-Care Condition: Good Prescriptions Prescriptions: New azithromycin [Zithromax Z-Bart] 250 mg tablet See Rx Instructions .ROUTE .COMPLEX 5 Days Qty: 6 0RF Rx Instructions: For 250 mg dose pack: take 500 mg today (day 1), then 250 mg for 4 days (days 2-5) methylprednisolone [Medrol (Bart)] 4 mg tablets,dose pack See Rx Instructions .Route .COMPLEX 6 Days Qty: 21 0RF Rx Instructions: taper pack; guaifenesin [Mucinex] 600 mg tablet extended release 12hr 1,200 mg PO BID PRN (Reason: cough) Qty: 20 0RF No Action cyclobenzaprine 5 mg tablet 10 mg PO HS Patient Comments: TAKE ONE TABLET BY MOUTH THREE TIMES DAILY NEEDED MAY CAUSE DROWSINESS metoprolol succinate 25 mg tablet extended release 24 hr 12.5 mg PO DAILY omeprazole 40 mg capsule,delayed release(DR/EC) 40 mg PO BID fenofibrate 50 mg capsule 50 mg PO DAILY celecoxib 200 mg capsule 200 mg PO DAILY Patient Comments: TAKE ONE CAPSULE BY MOUTH EVERY DAY --TAKE WITH FOOD-- duloxetine 30 mg capsule,delayed release(DR/EC) 30 mg PO DAILY Patient Comments: TAKE ONE CAPSULE BY MOUTH EVERY DAY Referrals Follow up/Referrals: Chico Drew MD [Primary Care Provider] - See instructions Activity Restrictions/Add. Instructions Additional Instructions/Restrictions: * Start antibiotic today. Be sure to complete entire prescription even if feeling better * Monitor temp. Tylenol every 4 hours as needed and / or ibuprofen every 6 hours as needed ( As long as your primary care physician has told you that it ok to take both. For fever/aches/pains ER if no less than 101 despite Tylenol or Motrin * Humidifier/vaporizer or hot steamy shower * Mucinex during for your cough Be sure to drink lots of water. *Start steroid today. Helps with inflammation therefore, cough and wheezing. Follow directions on the package. Reviewed side effects. Patient reports taking them before. Follow up IMMEDIATELY for new or worsening of symptoms OR no noticeable improvement over the next 48-72 hours. 911 immediately for any life threatening symptoms such as chest pain or difficulty breathing Clinical Impressions Clinical Impression: Bronchitis Stand Alone Forms Stand Alone Forms: Work/School Release Instructions Patient Instructions: Acute Bronchitis Print Language Print Language: Albanian Discharge ED Provider: Paris Rich [facility] HPI General Stated complaint: congestion, cough Mode of Arrival: Ambulatory Source of Information: Patient Limitations: No Limitations Time Seen by Provider: 03/15/24 15:15 Description of Symptoms (Recalled from Triage Doc. by RN): PATIENT C/O PRODUCTIVE COUGH WITH YELLOW-BROWN MUCOUS X 8 DAYS AND PAIN WITH COUGH THAT STARTED TODAY HEENT Symptoms (Recalled from RN notes): No Resp Symptoms (Recalled from RN notes): Yes Skin Symptoms (Recalled from RN notes): No MS Symptoms (Recalled from RN notes): No Functional Status (Recalled from RN notes): WNL History of Present Illness Provider Complaint: Patient states that she has been having cough and chest congestion for over a week and having productive cough at times with yellowish/brown colored mucous States today she is having a little discomfort in her lungs when she would cough so today she came in to get checked Related Data Home Medications ?Medication ?Instructions ?Recorded ?Confirmed cyclobenzaprine 5 mg tablet 10 mg PO HS Pain 03/21/20 03/15/24 metoprolol succinate 25 mg 12.5 mg PO DAILY Hypertension 02/26/21 03/15/24 tablet,extended release 24 hr celecoxib 200 mg capsule 200 mg PO DAILY 08/31/23 03/15/24 duloxetine 30 mg capsule,delayed 30 mg PO DAILY 08/31/23 03/15/24 release fenofibrate 50 mg capsule 50 mg PO DAILY 01/29/24 03/15/24 omeprazole 40 mg capsule,delayed 40 mg PO BID 01/29/24 03/15/24 release Previous Rx's ?Medication ?Instructions ?Recorded azithromycin 250 mg tablet See Rx Instructions PO .COMPLEX 5 03/15/24 (Zithromax Z-Bart) days #6 tabs guaifenesin 600 mg tablet, 1,200 mg (2 x 600 mg) PO BID PRN 03/15/24 extended release 12 hr (Mucinex) cough #20 tabs methylprednisolone 4 mg tablets in See Rx Instructions .Route 03/15/24 a dose pack (Medrol (Bart)) .COMPLEX 6 days #21 tabs Allergies Allergy/AdvReac Type Severity Reaction Status Date / Time amoxicillin Allergy Rash Verified 03/15/24 15:14 Penicillins Allergy Rash Verified 03/15/24 15:14 nitrofurantoin AdvReac Mild Rash Verified 01/29/24 10:02 [From Macrobid] Worker's Comp Is this a Worker's Comp case?: No [facility] Disclaimer: The information contained in this section may have been updated after the patient was seen, as this information can be updated by other users. Medical History Depression Anxiety History of gastroesophageal reflux (GERD) Hypertension Surgical History History of laparoscopic cholecystectomy H/O wisdom tooth extraction History of tonsillectomy History of section Family History Grandfather Cancer colon cancer Other Family history of CABG Family history of diabetes mellitus type II Family history of hypertension Social History Smoking Status: Current every day smoker tobacco type: cigarettes packs per day: 1 alcohol intake: current alcohol intake frequency: a few times a month substance use type: denies use current occupational status: employed Travel in the last 8 weeks: None household members: children housing: house lives independently: Yes marital status: single education level: college service: No fci: No caffeine: Yes special jacques needs: No agree to transfusion: No do you feel safe at home: Yes victim of physical abuse: No victim of emotional abuse: No victim of sexual abuse: No would you like helpful sources: No ROS Obtained: Yes All systems reviewed & no additional complaints except as documented and Yes Systems reviewed as appropriate & no additional complaints except as documented Constitutional Constitutional: Reports system reviewed and no additional complaints, except as documented and Reports as per HPI ENT Ears, Nose, Mouth, and Throat: Reports system reviewed and no additional complaints, except as documented, Reports as per HPI, Reports nasal congestion and Reports sinus pressure Cardiovascular Cardiovascular: Reports system reviewed and no additional complaints, except as documented and Reports as per HPI Respiratory Respiratory: Reports system reviewed and no additional complaints, except as documented, Reports as per HPI, Denies shortness of breath, Reports chest congestion, Reports cough, Reports pain with cough and Denies wheezing Gastrointestinal Gastrointestingal: Reports system reviewed and no additional complaints, except as documented and as per HPI; Denies abdominal pain Allergic/Immunologic Allergic/Immunologic: Denies wheezing Physical Exam General General appearance: alert and in no apparent distress ENT ENT exam: Present mucous membranes moist Expanded ENT Exam Throat exam: Present other (Pharyngeal erythema noted with PND) Respiratory Respiratory exam: Present normal lung sounds bilaterally; Absent respiratory distress or wheezes Cardiovascular Cardiovascular exam: Present regular rate, normal rhythm and normal heart sounds Abdominal Exam Abdominal exam: Present soft and normal bowel sounds; Absent distention or tenderness Neurological Exam Neurological exam: Present alert, oriented X3 and normal gait Medical Decision Making Dada Inquiry Pt receiving controlled substance: No Dada was queried for this patient: No Vital Signs: 03/15/24 15:05 Temperature 98.8 F Temperature Source Oral Pulse Rate [Left Brachial] 100 H Respiratory Rate 21 Blood Pressure [Left Arm] 152/85 H Blood Pressure Mean [Left Arm] 107 Blood Pressure Source [Left Arm] Automatic Cuff Blood Pressure Position [Left Arm] Sitting 02 Sat by Pulse Oximetry 98 Oxygen Delivery Method Room Air
[2024-03-15 15:28] VITALS: BP 152/85; PULSE 100; RESP 21; TEMP 37.1; O2SAT 98
== END 2024-03-15 15:31 | disposition home or self-care (01) ==
PROVIDERS: Emergency Provider Nurse Practitioner; PCP Family Medicine
DX: J20.9 Acute bronchitis, unspecified (principal); R07.1 Chest pain on breathing; R05.9 Cough, unspecified; F17.210 Nicotine dependence, cigarettes, uncomplicated; I10 Essential (primary) hypertension; K21.9 Gastro-esophageal reflux disease without esophagitis; F32.A Depression, unspecified; F41.9 Anxiety disorder, unspecified
CPT/HCPCS: 99212; 99214; G0463

== ENCOUNTER → 2024-05-23 20:26 | Outpatient (CLI) | payer OTHER, SELFPAY | LOC: SL 20:28 | PROVIDERS: PCP Family Medicine; Visit Provider Family Medicine | DX: R06.83 Snoring (principal); G47.10 Hypersomnia, unspecified; G31.84 Mild cognitive impairment of uncertain or unknown etiology | CPT/HCPCS: 95810 ==

== ENCOUNTER 2024-06-18 08:11 | Outpatient (CLI) | payer OTHER, SELFPAY ==
[2024-06-18 09:14] LABS: Alanine Aminotransferase 20 U/L (12-78); Alkaline Phosphatase 49 U/L (38-126); Anion Gap 10.4 mEq/L (5-15); Aspartate Amino Transferase 19 U/L (14-36); Bilirubin,Total 0.5 mg/dl (0.2-1.3); Blood Urea Nitrogen 17 mg/dl (7-17); Calcium 9.3 mg/dl (8.4-10.2); Carbon Dioxide 27 mmol/L (22.0-30.0); Chloride 106 mmol/L (98-107); Chol/HDL Ratio 2.6 (1-3.5); Cholesterol 129 mg/dl (140-200); Estimated Glomerular Filt Rate 80 ml/min (>60); GFR (African American) 97 ML/MIN (>60); Glucose 120 mg/dl (74-100); HDL Cholesterol 49 mg/dl (40-60); Potassium 4.4 mmoL/L (3.5-5.1); Sodium 139 mmol/L (136-145); Triglycerides 64 mg/dl (30-150); VLDL Cholesterol 13 mg/dL (0-40)
[2024-06-18 09:24] LABS: Direct LDL Cholesterol 73.97 mg/dL (100-129)
[2024-06-18 09:31] LABS: 25-OH Vitamin D, Total 47.2 ng/mL (30-100)
== END 2024-06-18 23:59 | disposition home or self-care (01) ==
LOC: LAB 08:12
PROVIDERS: PCP Family Medicine; Visit Provider Family Medicine
DX: E78.2 Mixed hyperlipidemia (principal); R73.01 Impaired fasting glucose; E55.9 Vitamin D deficiency, unspecified
CPT/HCPCS: 36415; 80053; 80061; 82306; 83036

== ENCOUNTER 2025-03-03 16:50 | Outpatient (CLI) | payer OTHER, SELFPAY ==
--- OUTSIDE RECORDS SUMMARY | 2025-03-03 16:52 | XMS_ITS | Clinical Summary ---
Author Organization [facility] Address [address] [place] [address] Care Team Providers Care Technology Lead Name Role Phone Unavailable Primary Care Provider Unavailabl e Social History Tobacco Use Types Packs/Day Years Used Date Smoking Tobacco: Never Assessed Abuse Screen Answer Date Recorded Unsafe at Home or Work/School Not on file Feels Threatened by Someone? Not on file 05/2023 Does Anyone Keep You from Co ntacting Others or Doint Things Outside the Home? Not on file 05/13/2023 Physical Sign of Abuse Present Not on file 1 Housing Stability Answer Date Recorded Current Living Arrangements Not on file 05/04 Potentially Unsafe Housing Conditions Not on tirso e 05/13/2023 Family and Community Support Answer Deyvi e Recorded Help with Day-to-Day Activities Not on file 05/13/2023 Lonely or Isolated Not on file 05/13/2023 Employment Answer Date Recorded Do you want help finding or keeping work or a issa b? Not on file 05/13/2023 Disabilities Answer Date Recorded Concentrating, Remembering, or Making Decisions Difficulty Not on file 05/13/2023 Doing Errands Independently Difficulty Not on fi le 05/13/2023 Education Answer Date Recorded Help with school or training? Not on file Preferred Language Not on file 05/13/2023 Comments Unknown Sex and Gender Information Value Date Recorded Sex Assigned at Not on file Legal Sex Female 1:51 PM EDT Gender Identity Not on file Sexual Orientation Not on file Plan of Treatment Health Maintenance Due Date Last Done Comments ANNUAL PHYSICAL 1985 Annual Gynecologic Pelvic an d Breast Exam 1985 HEPATITIS C SCREENING 1985 TDAP/TD VACCINES (1 - Tdap) 2004 COVID-19 Vaccine (2023-2 5 season) 2024 INFLUENZA VACCINE 05/04/2025 Pneumococcal Vaccine 0-49 Aged Out No longer eligible based on patient's age to complete this topic
--- NOTE | 2025-03-03 17:44 | XR_ITS ---
PROCEDURE INFORMATION: Exam: XR Chest Exam date and time: 03/03/2025 5:35 PM Age: 39 years old Clinical indication: Cough and shortness of breath TECHNIQUE: Imaging protocol: Radiologic exam of the chest. Views: 2 views. COMPARISON: No relevant prior studies available. FINDINGS: Lungs: Clear lungs. Pleural spaces: No pneumothorax. No sizable pleural effusion. Heart/Mediastinum: No cardiomegaly. Bones/joints: Unremarkable. IMPRESSION: Clear lungs.
== END 2025-03-03 23:59 | disposition home or self-care (01) ==
LOC: RAD 16:51
PROVIDERS: PCP Family Medicine; Visit Provider Student in an Organized Health Care Education/Training Program
DX: R05.9 Cough, unspecified (principal)
CPT/HCPCS: 71046

== ENCOUNTER 2025-06-15 14:43 | Outpatient (CLI) | payer OTHER, SELFPAY ==
--- OUTSIDE RECORDS SUMMARY | 2024-06-18 11:15 | XMS_ITS ---
[facility] Address [address] [place] [id number] Care Team Providers Care Operations Mgr Name Role Phone Chico Drew Primary Care Provider Allergies Allergen (clinical drug ingredient) Drug/Non Drug Allergy documented on EMR Reaction Allergy Type Onset Date Status amoxicillin Amoxicillin raised, itchy red rash Drug Allergy 09/24/2019 Active nitrofurantoin, macrocrystals / nitrofurantoin, monohydrate Macrobid rash. hives Drug Allergy Active Tuberculin PPD Unknown Drug Allergy Ac tive metformin metFORMIN diarrhea Drug Allergy Active REASON FOR VISIT blood work and check up Medications Medication SIG (Take, Route, Frequency, Duration) Notes Start Date End Date Status DULoxetine HCl 60 MG 1 capsule Orally On ce a day; Duration: 90 days 06/18/2024 Active Celecoxib 200 mg TAKE ONE CAPSULE BY MOUTH EVERY DAY --TAKE WITH FOOD--; Duration: 30 days Active Fenofibrate 160 MG 1 tablet Orally Once a day; Duration: 90 days Active Flonase Allergy Relief 50 MCG/ACT 1 spray in each nostril Nasally Once a day 10/29/2023 Not-Taking Cyclobenzaprine HCl 5 mg TAKE ONE TABLET BY MOUTH EVERY DAY AT BEDTIME NEEDED; Duration: 30 Active Vitamin D3 1.25 MG (32578 UT) 1 capsule Orally Once a week 12/03/2023 Active Metoprolol Succinate ER 25 mg TAKE ONE TABLET BY MOUTH EVERY DAY Active Omeprazole 40 MG 1 capsule Orally Two times a day; Duration: 30 days Active Vital Signs Blood pressure systolic 124 mm Hg 06/18/20 24 Blood pressure diastolic 82 mm Hg 024 Heart Rate 90 /min 06/18/2024 Height 66.75 in 06/18/2024 Weight 212 lbs 06/18/2024 BMI 33.45 kg/m2 06/18/2024 Encounters Encounter Location Date Provider Diagnosis [facility] [address] [facility] [address] [facility] [address] [place] [phone] 06/18/2024 Chico Drew Hypertriglyceridemia E78.1 ; Essential hypertension I10 ; Chronic fatigue R53.82 ; Vitamin D deficiency E55.9 ; IFG (impaired fasting glucose) R73.01 and Depressive disorder F32.9 Assessments Encounter Date Diagnosis (ICD Code) Assessment Notes Treatment Notes Treatment Clinical Notes Section Notes 06/18/2024 Hypertriglyceridemia (ICD-10 - E78.1) 06/18/2024 Essential hypertensi on (ICD-10 - I10) 06/18/2024 Chronic fatigue (ICD -10 - R53.82) 06/18/2024 Vitamin D deficiency (ICD-10 - E55.9) 06/18/2024 IFG (impaired fastin g glucose) (ICD-10 - R73.01) 06/18/2024 Depressive disorder (ICD-10 - F32.9) Plan Of Treatment Medication Medication Name Sig Start Date Stop Date Notes DULoxetine HCl 60 MG 1 capsule Orally On ce a day; Duration: 90 days 06/18/2024 DULoxetine HCl 30 mg TAKE ONE CAPSULE BY MOUTH EVERY DAY Fenofibrate 160 MG 1 tablet Orally Once a day; Duration: 90 days Vitamin D3 1.25 MG (99253 UT) 1 capsule Orally Once a week 12/03/2023 Metoprolol Succinate ER 25 mg TAKE ONE T ABLET BY MOUTH EVERY DAY Next Appt Details Follow Up: via phone to repo rt progress, 6 Months, Reason: Provider Name:Chico Aponte ry, 08/31/2025 04:15:00 PM, [address] [facility] [address] [facility], [address], [place], [phone], Progress Notes * JIL FITZGERALDOB:1985 (40 yo F)Acc No.[id number]:06/18/2024 Progress Notes Patient: DYLAN MCKEON Provider: Mynor Drew M.D. :1985 A ge:39 Y S ex:Female Date:06/18/2024 Address:[place], [id number] Subjective: * Chief Complaints: * 1 . Blood work and check up. * HPI: C ardiology: 39 year old female presents with c/o Blood Pressure Elevated?Pt here for 6 mo f/u on hypertension, states she is doing well and does not have any concerns.? * ROS: D ERMATOLOGY: no R johny. n o H gunjan. G ASTROENTEROLOGY: no N ausea. n o V omiting. U ROLOGY: no D ifficulty urinating. n o B lood in urine. * Medical History: A llergies, ADHD, Allergic to TB Serum, Esophageal Reflux. * Surgical History: W isdom Teeth Removed , 05/2018. * Hospitalization/Major Diagno stic Procedure: P anic Attack- [facility] 01/2016. * Family History: F ather: alive. M other: alive. P aternal Grand Father: . P aternal Grand Mother: alive. M aternal Grand Father: alive. M aternal Grand Mother: alive. 1 sister(s) . . * Social History: C URRENT TOBACCO USE S moking Status: Patient does smoke, Former Smoker: Yes, Quit smokin. C affeine: yes, frequency:. Exercise: yes. Home smoke detector use: yes. Marital Status: Single. Past smoking status: yes, PPD: , years: ,determination:. Alcohol: no. Sexually active: yes. * Medications: T aking Vitamin D3 1.25 MG (32887 UT) Capsule 1 capsule Orally Once a week , Taking Celecoxib 200 mg Capsule TAKE ONE CAPSULE BY MOUTH EVERY DAY --TAKE WITH FOOD-- , Taking Omeprazole 40 MG Capsule Delayed Release 1 capsule Orally Two times a day , Taking DULoxetine HCl 30 mg Capsule Delayed Release Particles TAKE ONE CAPSULE BY MOUTH EVERY DAY , Taking Fenofibrate 160 MG Tablet 1 tablet Orally Once a day , Taking Cyclobenzaprine HCl 5 mg Tablet TAKE ONE TABLET BY MOUTH EVERY DAY AT BEDTIME NEEDED , Taking Metoprolol Succinate ER 25 mg Tablet Extended Release 24 Hour TAKE ONE TABLET BY MOUTH EVERY DAY , Not-Taking Flonase Allergy Relief 50 MCG/ACT Suspension 1 spray in each nostril Nasally Once a day , Discontinued Pepcid 20 MG Tablet 1 tab(s) orally once a day (at bedtime) , Discontinued Ozempic (0.25 or 0.5 MG/DOSE) 2 MG/3ML Solution Pen-injector 0.25 mg Subcutaneous once weekly , Discontinued valACYclovir HCl 1 GM Tablet 2 tablet Orally Two times a day , Discontinued Medrol 4 MG Tablet Therapy Pack as directed orally daily , Discontinued Macrobid 100 MG Capsule 1 capsule with food Orally every 12 hrs , Discontinued Medrol 4 MG Tablet Therapy Pack as directed orally daily , Medication List reviewed and reconciled with the patient * Allergies: T uberculin PPD, Amoxicillin: raised, itchy red rash - Onset Date 09/24/2019, Macrobid: rash. hives, metFORMIN: diarrhea - Side Effects. Objective: * Vitals: W t:212, Temp:98.0, BP:124/82, HR:90, Nurse:linda, Ht: 66.75, BMI:33.45. * Examination: P sychology: General Appearance: N AD. G rooming : a dequate.?Eye contact : eron schultz. M ood : adilson burdick. H eart: R SR. L ungs: c lear to auscultation. L abs and sleep study results reviewed with patient. Assessment: * Assessment: 1. H ypertriglyceridemia - E78.1 (Primary) 2 . E ssential hypertension - I10 3 . C hronic fatigue - R53.82 4 . V itamin D deficiency - E55.9 5 . I FG (impaired fasting glucose) - R73.01 6 . D epressive disorder - F32.9 Plan: * Treatment: 2. E ssential hypertension Continue Metoprolol Succinate ER Tablet Extended Release 24 Hour, 25 mg, TAKE ONE TABLET BY MOUTH EVERY DAY. 3. V itamin D deficiency Continue Vitamin D3 Capsule, 1.25 MG (74358 UT), 1 capsule, Orally, Once a week. 4. D epressive disorder Stop DULoxetine HCl Capsule Delayed Release Particles, 30 mg, TAKE ONE CAPSULE BY MOUTH EVERY DAY;?Start DULoxetine HCl Capsule Delayed Release Particles, 60 MG, 1 capsule, Orally, Once a day, 90 days, 90 Capsule, Refills 1. * Follow Up: v ia phone to report progress, 6 Months * Images: Billing Information: * Visit Code: 44168 Office Visit, Est Pt., Level 4. * Procedure Codes: * Electronic signature of Ethel Drew MD on 06/15/2025 at 02:45 PM EST Sign off status: Pending * Provider: Mynor Drew M.D. Date: 08/18/2023 Generated for Catarina zhao/Gunnar/Marryransmitting on: 08/15/2024 02:45 PM EST History and Physical Notes * HPI (History of Present Illness) Category Sub-Category Detail Notes Category Not es Cardiology Blood Pressure Elevated Pt here for 6 mo f/u on hypertension, states she is doing well and does not have any concerns Examination Category Sub-Category Detail Notes Category Not es Psychology Heart: RSR Labs and sleep study results reviewed with patient Lungs: clear to auscultatio n General Appearance: NAD Grooming : adequate Eye contact : normal Mood : pleasant
--- OUTSIDE RECORDS SUMMARY | 2024-08-20 11:00 | XMS_ITS ---
Author Organization [facility] Address [address] [place] [phone] Care Team Providers Care Environmental Services Project Manager Name Role Phone Chico Drew Primary Care Provider Allergies Allergen (clinical drug ingredient) Drug/Non Drug Allergy documented on EMR Reaction Allergy Type Onset Date Status amoxicillin Amoxicillin raised, itchy red rash Drug Allergy 09/24/2019 Active nitrofurantoin, macrocrystals / nitrofurantoin, monohydrate Macrobid rash. hives Drug Allergy Active Tuberculin PPD Unknown Drug Allergy Ac tive metformin metFORMIN diarrhea Drug Allergy Active REASON FOR VISIT discuss meds Medications Medication SIG (Take, Route, Frequency, Duration) Notes Start Date End Date Status Vitamin D3 1.25 MG (65409 UT) 1 capsule Orally Once a week 12/03/2023 Active Flonase Allergy Relief 50 MCG/ACT 1 spray in each nostril Nasally Once a day 10/29/2023 Not-Taking Celecoxib 200 mg TAKE ONE CAPSULE BY MOUTH EVERY DAY --TAKE WITH FOOD--; Duration: 30 days Active DULoxetine HCl 60 MG 1 capsule Orally On a day 06/18/2024 Active Cyclobenzaprine HCl 5 mg TAKE ONE TABLET BY MOUTH EVERY DAY AT BEDTIME NEEDED Active Fenofibrate 160 MG 1 tablet Orally Once a day; Duration: 90 days Active Metoprolol Succinate ER 25 mg TAKE ONE TABLET BY MOUTH EVERY DAY; Duration: 30 Active Omeprazole 40 MG 1 capsule Orally Two times a day; Duration: 90 days Active Vital Signs Blood pressure systolic 128 mm Hg 08/20/19 25 Blood pressure diastolic 82 mm Hg 025 Heart Rate 103 /min 08/20/2024 Height 66.75 in 08/20/2024 Weight 218 lbs 08/20/2024 BMI 34.40 kg/m2 08/20/2024 Encounters Encounter Location Date Provider Diagnosis [facility] [facility] [address] [facility] [address] [place] [phone] 08/20/2024 Chico Drew Depressive disorder F32.9 and Laryngopharyngeal reflux (LPR) K21.9 Assessments Encounter Date Diagnosis (ICD Code) Assessment Notes Treatment Notes Treatment Clinical Notes Section Notes 08/20/2024 Depressive disorder (ICD-10 - F32.9) 08/20/2024 Laryngopharyngeal reflux (LPR) (ICD-10 - K21.9) Plan Of Treatment Medication Medication Name Sig Start Date Stop Date Notes DULoxetine HCl 60 MG 1 capsule Orally Once a day Omeprazole 40 MG 1 capsule Orally Two times a day; Duration: 90 days Next Appt Details Follow Up: 4 Months fasting, Reason: Provider Name:Chico Aponte , 08/31/2025 04:15:00 PM, [address] [facility] [address] [facility], [address], [place], [phone], Progress Notes * JEANNA FITZGERALDJEOVANYOB:1985 (40 yo F)Acc No.[id number]:08/20/2024 Progress Notes Patient: DYLAN MCKEON Provider: Mynor Drew M.D. :1985 A ge:39 Y S ex:Female Date:08/20/2024 Address:[facility] [place], [id number] Subjective: * Chief Complaints: * 1 . Discuss meds. * HPI: H PI: 39 year old female presents with c/o Patient is here today for?a follow up on medications. Pt sts that she is doing well, no concerns or complaints. * ROS: D ERMATOLOGY: no R johny. n o H gunjan. G ASTROENTEROLOGY: no N ausea. n o V omiting. n o D iarrhea.? U ROLOGY: no D ifficulty urinating. n o B lood in urine. * Medical History: A llergies, ADHD, Allergic to TB Serum, Esophageal Reflux, Hypertension, Hyperlipidemia, Hypertriglyceridemia, Impaired fasting glucose. * Surgical History: W isdom Teeth Removed , 05/2018. * Hospitalization/Major Diagno stic Procedure: P anic Attack- [facility] 01/2016. * Family History: F ather: alive. [...] Medications: T aking Vitamin D3 1.25 MG (78200 UT) Capsule 1 capsule Orally Once a week , Taking Omeprazole 40 MG Capsule Delayed Release 1 capsule Orally Two times a day , Taking Metoprolol Succinate ER 25 mg Tablet Extended Release 24 Hour TAKE ONE TABLET BY MOUTH EVERY DAY , Taking Fenofibrate 160 MG Tablet 1 tablet Orally Once a day , Taking DULoxetine HCl 60 MG Capsule Delayed Release Particles 1 capsule Orally Once a day , Taking Cyclobenzaprine HCl 5 mg Tablet TAKE ONE TABLET BY MOUTH EVERY DAY AT BEDTIME NEEDED , Taking Celecoxib 200 mg Capsule TAKE ONE CAPSULE BY MOUTH EVERY DAY --TAKE WITH FOOD-- , Not-Taking Flonase Allergy Relief 50 MCG/ACT Suspension 1 spray in each nostril Nasally Once a day , Medication List reviewed and reconciled with the patient * Allergies: T uberculin PPD, Amoxicillin: raised, itchy red rash - Onset Date 09/24/2019, Macrobid: rash. hives, metFORMIN: diarrhea - Side Effects. Objective: * Vitals: W t:218, Temp:98.9, BP:128/82, HR:103, Nurse:ENA, Ht: 66.75, BMI:34.40. * Examination: P sychology: General Appearance: N AD. G rooming : a dequate.?Eye contact : n ordeirdre. M ood : adilson burdick. H eart: Tom Bray ungs: c lear to auscultation. Assessment: * Assessment: 1. D epressive disorder - F32.9 (Primary) 2 . L aryngopharyngeal reflux (LPR) - K21.9 Plan: * Treatment: 2. L aryngopharyngeal reflux (LPR) Refill Omeprazole Capsule Delayed Release, 40 MG, 1 capsule, Orally, Two times a day, 90 days, 180 Capsule, Refills 1. * Follow Up: 4 Months fasting * Images: Billing Information: * Visit Code: 52245 Office Visit, Est Pt., Level 3. * Procedure Codes: * Electronic signature of Ethel Drew MD on 06/15/2025 at 02:46 PM EST Sign off status: Pending * Provider: Mynor Drew M.D. Date: 0 08/20/2024 Generated for Catarina zhao/Gunnar/Ronniitting on: 08/15/2024 02:46 PM EST History and Physical Notes * HPI (History of Present Illness) Category Sub-Category Detail Notes Category Not es HPI Patient is here today for a foll ow up on medications. Pt sts that she is doing well, no concerns or complaints Examination Category Sub-Category Detail Notes Category Not es Psychology Heart: RSR Lungs: clear to auscultatio n General Appearance: NAD Grooming : adequate Eye contact : normal Mood : pleasant
--- OUTSIDE RECORDS SUMMARY | 2024-12-24 11:00 | XMS_ITS ---
Author Organization [facility] Address [facility] [facility] [address] [facility] [address] [place] [phone] Care Team Providers Care Welding Estimator Name Role Phone Chico Drew Primary Care Provider Allergies Allergen (clinical drug ingredient) Drug/Non Drug Allergy documented on EMR Reaction Allergy Type Onset Date Status amoxicillin Amoxicillin raised, itchy red rash Drug Allergy 09/24/2019 Active nitrofurantoin, macrocrystals / nitrofurantoin, monohydrate Macrobid rash. hives Drug Allergy Active Tuberculin PPD Unknown Drug Allergy Ac tive metformin metFORMIN diarrhea Drug Allergy Active REASON FOR VISIT 4 months Encounters Encounter Location Date Provider Diagnosis [facility] [address] [facility] [address] [place] [phone] 12/24/2024 Chico Drew Plan Of Treatment Next Appt Details Provider Name:Chico Aponte ry, 08/31/2025 04:15:00 PM, [address] [facility], [address], [place], [phone], Progress Notes * JIL FITZGERALDOB:1985 (40 yo F)Acc No.[id number]:12/24/2024 Progress Notes Patient: Mynor VARGHESE DYLAN Provider: Mynor Drew M.D. :1985 A ge:39 Y S ex:Female Date:12/24/2024 Address:[address] [id number] Subjective: * Chief Complaints: * 1 . 4 months. * HPI: H PI: 39 year old female presents with c/o Patient is here today for?Pt is here today for a 4 month check up. * ROS: D ERMATOLOGY: no R johny. [...] Hospitalization/Major Diagno stic Procedure: P anic Attack- [facility] 01/2016. * Family History: F ather: [...] ,determination:. Alcohol: no. Sexually active: yes. * Allergies: T uberculin PPD, Amoxicillin: raised, itchy red rash - Onset Date 09/24/2019, Macrobid: rash. hives, metFORMIN: diarrhea - Side Effects. Objective: * Vitals: Assessment: Plan: * Treatment: * Images: Billing Information: * Visit Code: * Procedure Codes: * Electronic signature of Ethel Drew MD on 06/15/2025 at 02:46 PM EST Sign off status: Pending * Provider: Mynor Drew M.D. Date: 0 12/24/2024 Generated for Catarina zhao/Gunnar/Lupis on: 1 08/15/2024 02:46 PM EST History and Physical Notes * HPI (History of Present Illness) Category Sub-Category Detail Notes Category Not es HPI Patient is here today for Pt is here today for a 4 month check up
--- OUTSIDE RECORDS SUMMARY | 2025-04-15 10:30 | XMS_ITS ---
Author Organization [facility] Address [address] [facility] 36 [facility] [address] [place] [phone] Care Team Providers Care Auth Specialist Name Role Phone Chico Drew Primary Care Provider Allergies Allergen (clinical drug ingredient) Drug/Non Drug Allergy documented on EMR Reaction Allergy Type Onset Date Status amoxicillin Amoxicillin raised, itchy red rash Drug Allergy 09/24/2019 Active nitrofurantoin, macrocrystals / nitrofurantoin, monohydrate Macrobid rash. hives Drug Allergy Active Tuberculin PPD Unknown Drug Allergy Ac tive metformin metFORMIN diarrhea Drug Allergy Active REASON FOR VISIT 3 week f/u Encounters Encounter Location Date Provider Diagnosis [facility] [address] [facility] 36 [facility] [address] [place] [phone] 04/15/2025 Chico Drew Plan Of Treatment Next Appt Details Provider Name:Chico Aponte ry, 08/31/2025 04:15:00 PM, [facility], [address], [place], [phone], Progress Notes * JEANNA FITZGERALDNDOB:1985 (40 yo F)Acc No.[id number]:04/15/2025 Progress Notes Patient: JEANNA MCKEONSen Provider: Mynor Drew M.D. :1985 A ge:40 Y S ex:Female Date:04/15/2025 Address:[address] [id number] Subjective: * Chief Complaints: * 1 . 3 week f/u. * ROS: D ERMATOLOGY: no R johny. [...] Hospitalization/Major Diagno stic Procedure: P anic Attack- [facility] 01/2016. * Family History: F ather: alive. M other: alive. P aternal Grand Father: . P aternal Grand Mother: alive. M aternal Grand Father: alive. M aternal Grand Mother: alive. 1 sister(s) . . * Social History: C URRENT TOBACCO USE: Yes S moking Status: Patient does smoke, Former [...] * Provider: Mynor Drew M.D. Date: 0 04/15/2025 Generated for Catarina zhao/Gunnar/Lupis on: 08/15/2024 02:45 PM EST
--- OUTSIDE RECORDS SUMMARY | 2025-05-30 12:15 | XMS_ITS ---
[facility] Organization [facility] Address [address] [place] [id number] Care Team Providers Care Commercial Carpenter Name Role Phone [place] Drew Primary Care Provider [phone] Allergies Allergen (clinical drug ingredient) Drug/Non Drug Allergy documented on EMR Reaction Allergy Type Onset Date Status amoxicillin Amoxicillin raised, itchy red rash Drug Allergy 09/24/2019 Active nitrofurantoin, macrocrystals / nitrofurantoin, monohydrate Macrobid rash. hives Drug Allergy Active Tuberculin PPD Unknown Drug Allergy Ac tive metformin metFORMIN diarrhea Drug Allergy Active REASON FOR VISIT discuss mammo and colonoscopy, med check Medications Medication SIG (Take, Route, Frequency, Duration) Notes Start Date End Date Status Fenofibrate 160 MG 1 tablet Orally Once a day; Duration: 90 days Active Varenicline Tartrate (Starter) 0.5 MG X 11 & 1 MG X 42 as directed Orally 05/30/2025 Active Varenicline Tartrate 1 MG 1 tablet after eating Orally Twice a day; Duration: 30 days 05/30/2025 Active Celecoxib 200 mg 1 capsule with food orally once a day; Duration: 90 days Active Cyclobenzaprine HCl 5 mg 1 tablet at bed time orally daily; Duration: 90 days Active Flonase Allergy Relief 50 MCG/ACT 1 spray in each nostril Nasally Once a day 10/29/2023 Not-Taking Vitamin D3 1.25 MG (55121 UT) 1 capsule Orally Once a week 12/03/2023 Not-Taking Omeprazole 40 MG 1 capsule Orally Two times a day; Duration: 90 days Active DULoxetine HCl 30 MG 1 capsule Orally On ce a day; Duration: 90 days Active Metoprolol Succinate ER 25 mg 1 tablet orally once a day; Duration: 30 days Active Problems Problem Type SNOMED Code ICD Code Onset Dates Problem Status W/U Status Risk Notes Problem Tobacco user (635512492) Cigarette nicotine dependence without complication (F17.210) Active confirmed Vital Signs Blood pressure systolic 126 mm Hg 05/30/20 25 Blood pressure diastolic 80 mm Hg 025 Heart Rate 87 /min 05/30/2025 Height 66.75 in 05/30/2025 Weight 218.2 lbs 05/30/2025 BMI 34.43 kg/m2 05/30/2025 Encounters Encounter Location Date Provider Diagnosis [facility] [address] [facility] [address] [place] [id number] 05/30/2025 [place] Sharon Hypertriglyceridemia E78.1 ; Depressive disorder F32.9 ; Low back pain, unspecified M54.50 ; Cigarette nicotine dependence without complication F17.210 ; Breast cancer screening by mammogram Z12.31 ; Colon cancer screening Z12.11 and Family hx of colon cancer Z80.0 Assessments Encounter Date Diagnosis (ICD Code) Assessment Notes Treatment Notes Treatment Clinical Notes Section Notes 05/30/2025 Hypertriglyceridemia (ICD-10 - E78.1) 05/30/2025 Depressive disorder (ICD-10 - F32.9) 05/30/2025 Low back pain, unspecified (ICD-10 - M54.50) 05/30/2025 Cigarette nicotine dependence without complication (ICD-10 - F17.210) 05/30/2025 Breast cancer screen ing by mammogram (ICD-10 - Z12.31) 05/30/2025 Colon cancer screeni ng (ICD-10 - Z12.11) 05/30/2025 Family hx of colon cancer (ICD-10 - Z80.0) Plan Of Treatment Medication Medication Name Sig Start Date Stop Date Notes Fenofibrate 160 MG 1 tablet Orally Once a day; Duration: 90 days Varenicline Tartrate (Starte r) 0.5 MG X 11 & 1 MG X 42 as directed Orally 05/30/2025 Varenicline Tartrate 1 MG 1 tablet after eating Orally Twice a day; Duration: 30 days 05/30/2025 Celecoxib 200 mg 1 capsule with food orally once a day; Duration: 90 days Cyclobenzaprine HCl 5 mg 1 tablet at bed time orally daily; Duration: 90 days Pending Test Test Name Order Date colonoscopy 05/30/2025 Mammogram 05/30/2025 Next Appt Details Follow Up: 3 Months fasting, Reason: Provider Name:Chico Aponte ry, 08/31/2025 04:15:00 PM, [address], [address], [place], [place], [id number], Progress Notes * JEANNA FITZGERALDNDOB:1985 (40 yo F)Acc No.[id number]:05/30/2025 Progress Notes Patient: DYLAN MCKEON Provider: Mynor Drew M.D. :1985 A ge:40 Y S ex:Female Date:05/30/2025 Address:[address] [place] [id number] Subjective: * Chief Complaints: * 1 . Discuss mammo and colonoscopy, med check. * HPI: G YN: 40 year old female presents with c/o mammogram p t would like to schedule. G astroenterology: c/o Colonoscopy p t would like to schedule. * Medical History: A llergies, ADHD, Allergic to TB Serum, Esophageal Reflux, Hypertension, Hyperlipidemia, Hypertriglyceridemia, Impaired fasting glucose. * Surgical History: W isdom Teeth Removed , 05/2018. * Hospitalization/Major Diagno stic Procedure: P anic Attack- [facility] 01/2016. * Family History: F ather: alive. [...] Sexually active: yes. * Medications: T aking Omeprazole 40 MG Capsule Delayed Release 1 capsule Orally Two times a day , Taking Fenofibrate 160 MG Tablet 1 tablet Orally Once a day , Taking DULoxetine HCl 30 MG Capsule Delayed Release Particles 1 capsule Orally Once a day , Taking Metoprolol Succinate ER 25 mg Tablet Extended Release 24 Hour 1 tablet orally once a day , Taking Celecoxib 200 mg Capsule 1 capsule with food orally once a day , Taking Cyclobenzaprine HCl 5 mg Tablet 1 tablet at bedtime orally daily , Not-Taking Vitamin D3 1.25 MG (41650 UT) Capsule 1 capsule Orally Once a week , Not-Taking Flonase Allergy Relief 50 MCG/ACT Suspension 1 spray in each nostril Nasally Once a day , Medication List reviewed and reconciled with the patient * Allergies: T uberculin PPD, Amoxicillin: raised, itchy red rash - Onset Date 09/24/2019, Macrobid: rash. hives, metFORMIN: diarrhea - Side Effects. Objective: * Vitals: W t: 218.2, Temp: 98.1, BP: 126/80, HR: 87, Nurse: SF, Ht: 66.75, BMI:34.43. * Examination: G eneral Examination: General Appearance: N AD. H eart: R SR. L ungs:?clear to auscultation. Assessment: * Assessment: 1. H ypertriglyceridemia - E78.1 (Primary) 2 . D epressive disorder - F32.9? 3. L ow back pain, unspecified - M54.50 4 . C igarette nicotine dependence without complication - F17.210 5 . B reast cancer screening by mammogram - Z12.31 6 . C olon cancer screening - Z12.11 7 . F amily hx of colon cancer - Z80.0 Plan: * Treatment: 2. L ow back pain, unspecified Refill Celecoxib Capsule, 200 mg, 1 capsule with food, orally, once a day, 90 days, 90, Refills 1;?Refill Cyclobenzaprine HCl Tablet, 5 mg, 1 tablet at bedtime, orally, daily, 90 days, 90, Refills 1. 3. C igarette nicotine dependence without complication Start Varenicline Tartrate (Starter) Tablet Therapy Pack, 0.5 MG X 11 & 1 MG X 42, as directed, Orally, 1, Refills 0; S tart Varenicline Tartrate Tablet, 1 MG, 1 tablet after eating, Orally, Twice a day, 30 days, 60 Tablet, Refills 1. 4. B reast cancer screening by mammogram I maging: Mammogram 5.?Colon cancer screening?Imaging: colonoscopy* Dr. Rubio on a Friday or Nereyda Palma 05/31/2025 08:38:02 AM EDT > faxed to [facility] 6.?Family hx of colon cancer?Imaging: colonoscopy* Dr. Rubio on a Friday or Nereyda Palma 05/31/2025 08:38:02 AM EDT > faxed to [facility] * Follow Up: 3 Months fasting * Images: Billing Information: * Visit Code: 85011 Office Visit, Est Pt., Level 4. * Procedure Codes: * Electronic signature of Ethel Drew MD on 06/15/2025 at 02:46 PM EST Sign off status: Pending * Provider: Mynor Drew M.D. 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
--- OUTSIDE RECORDS SUMMARY | 2025-06-15 14:45 | XMS_ITS | Data Portability ---
Author Organization [facility],, Main Office Address [address] [place] [address] Assessment Encounter Date Assessment Date Assessment LastModified by Organization Details LastModified Time 08/27/2017 08/27/2017 Patient evaluated for infertility. History and exam indicate INSERT TEXT HERE. Patient educated on treatment and goals of therapy. Discussed follow up and orders indicated below. [email or web address] Not available 08/27/2017 16:06:13 Plan of Treatment Reminders Order Date Submit Date Provider Last Modified By Organization Details Last Modified Time Details Appointments None record ed. Lab None record ed. Referral None record ed. Procedures None record ed. Surgeries None record ed. Imaging None record ed. Medication Orders None record ed. Patient TargetsNo targets recorded. Patient Instructions Encounter Date Encounter Id Patient Instructions Last Modified By Organization Details Last Modified Time 08/27/2017 [id number] deciding about using medicines to quit smoking [email or web address] Not available 09/07/2017 20:50:51 Quitting Tobacco : Care Instructions [email or web address] Not available 09/07/2017 20:50:51 Reason for Referral None Reported. Results Created Date Observation Date Name Description Value Unit Range Abnormal Flag Note LastModifiedBy Organization Detail LastModifiedTime 08/27/19 18 08/28/2017 CBC w/ auto diff WBC 8.6 K/uL 3.8-11 .5 E ffect judson 07/14 New WBC Count Refer ence Range for Adult Males and Femal es: 3.8-1 1.5 K/uL Previ ous WBC Count Refer ence Range for Adult Males and Femal es: 3.8-1 2.8 K/uL Not Available [facility] [address], [place], [address], 09/03/2017 15:58:01 08/27/19 18 08/28/2017 CBC w/ auto diff red blood cell count (RBC) 4.83 M/mm3 3.60-5 .30 E ffect judson 2016 New Red Blood Count Refer ence Range for Adult Femal es: 3.6-5 .3 M/mm3 Previ ous Red Blood Count Refer ence Range for Adult Femal es: 3.7-5 .1 M/mm3 Not Available [facility]) [address] [place] [address] Dr [address], [place], [address], 09/03/2017 15:58:01 08/27/19 18 08/28/2017 CBC w/ auto diff hemoglobin (HGB) 14.1 gm/dL 12.0-1 6.0 Not Available [facility]) [address] [place] [address] Dr [address], [place], [address], 09/03/2017 15:58:01 08/27/19 18 08/28/2017 CBC w/ auto diff hematocrit (HCT) 44.3 % 37.4-4 8.3 Not Available [facility]) [address] [place] [address] Dr [address], [place], [address], 09/03/2017 15:58:01 08/27/19 18 08/28/2017 CBC w/ auto diff MCV 91.7 fL 81.0-1 02.0 Not Available [facility]) [address] [place] [address] Dr [address], [place], [address], 09/03/2017 15:58:01 08/27/19 18 08/28/2017 CBC w/ auto diff MCH 29.2 pg 26.9-3 5.0 Not Available [facility]) [address] [place] [address] Dr [address], [place], [address], 09/03/2017 15:58:01 08/27/19 18 08/28/2017 CBC w/ auto diff MCHC 31.8 g/dL 30.4-3 4.8 Not Available [facility]) [address] [place] [address] Dr [address], [place], [address], 09/03/2017 15:58:01 08/27/19 18 08/28/2017 CBC w/ auto diff RDW 42.8 fL 38.6-5 3.8 Not Available [facility]) [address] [place] [address] Dr [address], [place], [address], 09/03/2017 15:58:01 08/27/19 18 08/28/2017 CBC w/ auto diff platelet count 329 K/cum m 137-39 7 Not Available [facility]) [address] [place] [address] Dr [address], [place], [address], 09/03/2017 15:58:01 08/27/19 18 08/28/2017 CBC w/ auto diff neutrophils automated 59.3 % 41.0-7 7.0 Not Available [facility]) [address] [place] [address] Dr [address], [place], [address], 09/03/2017 15:58:01 08/27/19 18 08/28/2017 CBC w/ auto diff lymphocytes automated 33.1 % 14.0-4 8.0 Not Available [facility]) [address] [place] [address] Dr [address], [place], [address], 09/03/2017 15:58:01 08/27/19 18 08/28/2017 CBC w/ auto diff monocytes automated 4.5 % 4.0-13 .0 Not Available [facility]) [address] [place] [address] Dr [address], [place], [address], 09/03/2017 15:58:01 08/27/19 18 08/28/2017 CBC w/ auto diff eosinophils automated 2.4 % 1.0-8. 0 Not Available [facility] [address] [place] [address] Dr [address], [place], [address], 09/03/2017 15:58:01 08/27/19 18 08/28/2017 CBC w/ auto diff basophils automated 0.6 % 0.0-1. 5 Not Available [facility]) [address] [place] [address] Dr [address], [place], [address], 09/03/2017 15:58:01 08/27/19 18 08/28/2017 CBC w/ auto diff immature granulocyte automated 0.1 % 0.0-1. 0 Not Available [facility] [address] [place] [address] Dr [address], [place], [address], 09/03/2017 15:58:01 08/27/19 18 08/28/2017 CMP, serum or plasm a sodium 138 mEq/L 134-14 5 Not Available [facility] [address] [place] [address] Dr [address], [place], [address], 09/03/2017 15:58:02 08/27/19 18 08/28/2017 CMP, serum or plasm a potassium 4.0 mEq/L 3.4-5. 4 Not Available [facility] [address] [place] [address] Dr [address], [place], [address], 09/03/2017 15:58:02 08/27/19 18 08/28/2017 CMP, serum or plasm a chloride 102 mEq/L 97-109 Not Available [facility] [address] [place] [address] Dr [address], [place], [address], 09/03/2017 15:58:02 08/27/19 18 08/28/2017 CMP, serum or plasm a CO2 26 mEq/L 22-32 Not Available [facility]) [address] [place] [address] Dr [address], [place], [address], 09/03/2017 15:58:02 08/27/19 18 08/28/2017 CMP, serum or plasm a glucose 78 mg/dL 65-99 Ef fecti ve 2016* New GLU Refer ence Range : 65-99 mg/dL Previ ous GLU Refer ence Range : 65-10 5 mg/dL Not Available [facility]) [address] [place] [address] Dr [address], [place], [address], 09/03/2017 15:58:02 08/27/19 18 08/28/2017 CMP, serum or plasm a BUN 10 mg/dL 5-26 Not Available [facility]) [address] [place] [address] Dr [address], [place], [address], 09/03/2017 15:58:02 08/27/19 18 08/28/2017 CMP, serum or plasm a creatinine 0.7 mg/dL 0.5-1. 5 Not Available [facility]) [address] [place] [address] Dr [address], [place], [address], 09/03/2017 15:58:02 08/27/19 18 08/28/2017 CMP, serum or plasm a calcium 9.7 mg/dL 8.5-10 .3 Not Available [facility]) [address] [place] [address] Dr [address], [place], [address], 09/03/2017 15:58:02 08/27/19 18 08/28/2017 CMP, serum or plasm a protein 6.7 g/dL 6.1-8. 3 Not Available [facility]) [address] [place] [address] Dr [address], [place], [address], 09/03/2017 15:58:02 08/27/19 18 08/28/2017 CMP, serum or plasm a albumin 4.6 g/dL 3.7-5. 2 Not Available [facility]) [address] [place] [address] Dr [address], [place], [address], 09/03/2017 15:58:02 08/27/19 18 08/28/2017 CMP, serum or plasm a alkaline phosphatase 94 IU/L 38-126 Not Available [facility]) [address] [place] [address] Dr [address], [place], [address], 09/03/2017 15:58:02 08/27/19 18 08/28/2017 CMP, serum or plasm a ALT (SGPT) 14 IU/L 7-52 Not Available [facility]) [address] [place] [address] Dr [address], [place], [address], 09/03/2017 15:58:02 08/27/19 18 08/28/2017 CMP, serum or plasm a AST (SGOT) 13 IU/L 13-39 Not Available [facility]) [address] [place] [address] Dr [address], [place], [address], 09/03/2017 15:58:02 08/27/19 18 08/28/2017 CMP, serum or plasm a bilirubin, total 0.4 mg/dL 0.2-1. 5 Not Available [facility]) [address] [place] [address] Dr [address], [place], [address], 09/03/2017 15:58:02 08/27/19 18 08/28/2017 CMP, serum or plasm a A/G ratio 2.2 mg/dL 1.1-2. 5 Not Available [facility]) [address] [place] [address] Dr [address], [place], [address], 09/03/2017 15:58:02 08/27/19 18 08/28/2017 GFR, estim ated (eGFR ), serum GFR/black >60 mL/mi n/1.7 3m2 >60 Not Available [facility] [address] [place] [address] Dr [address], [place], [address], 09/03/2017 15:58:02 08/27/19 18 08/28/2017 GFR, estim ated (eGFR ), serum GFR/white >60 mL/mi n/1.7 3m2 >60 Chron ic Kidne y Disea se: Less than 60 ml/mi n/1.7 3 squar e meter s End Stage Renal Disea se: Less than 15 ml/mi n/1.7 3 squar e meter s Not Available [facility] [address] [place] [address] Dr [address], [place], [address], 09/03/2017 15:58:02 08/27/19 18 08/28/2017 prola ctin, serum prolactin 4.20 NG/mL 2.74-2 6.72 Prola ctin Refer ence Range Males : 2.64 - 13.13 Femal es: Preme nopau xiomy 3.34 - 26.72 Postm enopa usal 2.74 - 19.64 Not Available [facility] [address] [place] [address] Dr [address], [place], [address], 09/03/2017 15:58:02 08/27/19 18 08/28/2017 lh (lute inizi ng hormo ne), serum luteinizing hormone 8.72 mIU/m L Lutei nizin g Hormo ne Refer ence Range Males : 1.24 - 8.62 Femal es: Mid-F ollic ular Phase : 2.12 - 10.89 Mid-C ycle Peak: 19.18 - 103.0 3 Mid-L uteal Phase : 1.20 - 12.86 Post menop ausal : 10.87 - 58.64 Not Available [facility]) [address] [place] [address] Dr [address], [place], [address], 09/03/2017 15:58:03 08/27/19 18 08/28/2017 FSH (foll icle- stimu latin g hormo ne), serum FSH 5.04 mIU/m L FSH Refer ence Range Males : 1.27 - 19.26 Femal es: Mid-F ollic ular Phase : 3.85 - 8.78 Mid-C ycle Peak: 4.54 - 22.51 Mid-L uteal Phase : 1.79 - 5.12 Postm enopa usal: 16.74 - 113.5 9 Not Available [facility] [address] [place] [address] Dr [address], [place], [address], 09/03/2017 15:58:03 08/27/19 18 08/28/2017 vitam in B12, serum vitamin B12 518 pg/mL 180-91 4 Not Available [facility]) [address] [place] [address] Dr [address], [place], [address], 09/03/2017 15:58:04 08/27/19 18 08/28/2017 TSH, serum or plasm a TSH 2.37 mU/L 0.34-5 .00 Not Available [facility] [address] [place] [address] Dr [address], [place], [address], 09/03/2017 15:58:04 08/27/19 18 08/28/2017 vitam in D, 25-hy droxy , total , serum vitamin D 25-hydroxy 12.8 NG/mL 30.0-1 00.0 low Inter preta tion of Vitam in D 25 OH: < 20 ng/mL - Defic iency 20 - 29 ng/mL - Insuf ficie ncy 30 - 100 ng/mL - Suffi cienc y > 100 ng/mL - Super -ther apeut ic- toxic ity may occur above this level . Clini yu corre latio n requi red. Not Available [facility]) [facility] [address], [place], [address], 09/03/2017 15:58:04 08/27/19 18 09/03/2017 anti- mulle doug hormo ne (amh) , serum anti mullerian hormone 2.67 NG/mL 0.51-7 .27 The Anti- Mulle doug Hormo ne test perfo rmanc e dwaine cteri stics were deter mined by [facility] at[facility] es. It has not been clear ed or appro eric by the FDA. The labor atory is regul ated under CLIA as quali fied to perfo rm high- compl exity testi ng. This test is used for clini yu purpo ses and shoul d not be regar ded as inves tigat ional or for resea rch. Not Available [facility] [address] [place] [address] Dr [address], [place], [address], 09/03/2017 15:58:05 Result Notes None recorded. Procedures Surgical History Date Name Laterality Status Provider Name and Address Organization Details Recorded Time 07/04/20 16 Date of Last [facility] 08/27/2017 15:43:31 [facility] 08/27/2017 15:54:45 [facility] 08/27/2017 15:54:54 Imaging Results None recorded. Procedure Notes None recorded. Medical Equipment None Reported. Allergies Allergen ID Allergen Name Allergen Category Reaction Reaction Severity Criticality Documentation Date Start Date Code Code System Note Provider Name and Address Organization Details Recorded Time 842 Ceclor medicatio n abdominal pain severe Not available 08/27/201721001 5 RxNorm Saranya Castrowandy [facility], 8 15:38:20 843 carrot extract food abdominal pain severe Not available 08/27/2017 59902 66 RxNorm water y stool Saranya Congleton null, [facility], 8 15:38:57 844 celery food abdominal pain severe Not available 08/27/2017 water y stool , nause a Saranya Congleton null, [facility], 8 15:39:52 845 reed pepper food abdominal pain Not available Not available 08/27/2017 water y stool , nause a Saranya Congleton null, [facility], 8 15:40:14 846 beef allergeni c extract food,medi cation abdominal pain severe Not available 08/27/2017 72391 9 RxNorm water y stool , nause a Saranya Congleton null, [facility], 8 15:40:38 847 sesame seed extract food abdominal pain severe Not available 08/27/2017 35914 46 RxNorm water y stool , nause a Saranya Congleton null, [facility], 8 15:40:57 Medications Name Sig Start Date Stop Date Status Note LastModified by Organization Details LastModified Time amoxicillin 500 mg capsule 08/27 completed Not Available Not Available Not Available azithromycin 250 mg tablet 08/27 completed Not Available Not Available Not Available clomiphene citrate 50 mg tablet Take 1 tablet every day by oral route for 5 days. active Not Available Not Available No t Available meloxicam 15 mg tablet 08/27 completed Not Available Not Available Not Available citalopram 20 mg tablet 08/27 completed Not Available Not Available Not Available dextroampheta mine-amphetam ine ER 20 mg 24hr capsule,exten d release 08/27 completed Not Available Not Available Not Available oseltamivir 75 mg capsule 08/27 completed Not Available Not Available Not Available Proctofoam HC 1 %-1 % 08/27 completed Not Available Not Available Not Available dextroampheta mine-amphetam ine ER 10 mg 24hr capsule,exten d release 08/27 completed Not Available Not Available Not Available methylprednis olone 4 mg tablets in a dose pack active Not Available Not Available No t Available bromphenirami ne-pseudoephe drine-DM 2 mg-30 mg-10 mg/5 mL oral syrup 08/27 completed Not Available Not Available Not Available dextroampheta mine-amphetam ine ER 15 mg 24hr capsule,exten d release 08/27 completed Not Available Not Available Not Available Sprintec (28) 0.25 mg-0.035 mg tablet 08/27 completed Not Available Not Available Not Available active Not Available Not Avai lable Not Available ProAir HFA 90 mcg/actuation aerosol inhaler active Not Available Not Available Not Available Trintellix 20 mg tablet 08/27 completed Not Available Not Available Not Available Vitals Date Recorded Body height Body mass index (BMI) Body weight Heart rate Body temperature Systolic And Diastolic Provider Name and Address Organization Details Last Updated DateTime 8 167.64 cm 33.6 kg/m2 61651.2 1 g 79 /min 96.1 [degF] 135/87 mm[Hg] Saranya Melgoza [facility], 8 15:37:25 Social History Question Answer Notes LastModified by Organizat ion Details LastModified Time Tobacco Smoking Status Current Every Day Smoker Not Available [facility] 05/30/2020 03:20:45 Able To Swim? Yes Information not available 08/27/2017 Accident Related Injury No Information not available 08/27/2017 Do You Have An Advance Directive? No [id number] Information not available 05/30/2020 How Many Years Have You Consumed Alcohol? 11 [id number] Information not available 05/30/2020 Animal Exposure? Yes Informat ion not available 08/27/2017 Are You Currently Sexually Active With Anyone Who Has Traveled (within The Last 12 Weeks) To A Zika-affected Area? No [id number] Information not available 05/30/2020 Do You Wear A Helmet When Biking? No [id number] Information not available 05/30/2020 Are You Blind Or Do You Have Difficulty Seeing? No [id number] Information not available 05/30/2020 What Is Your Level Of Caffeine Consumption? Moderate [id number] Information not available 05/30/2020 How Much Tobacco Do You Chew? None [id number] Information not available 05/30/2020 Concerns About Meeting Basic Needs (food, Housing, Heat, Etc)? No Information not available 08/27/2017 Are You Deaf Or Do You Have Serious Difficulty Hearing? No [id number] Information not available 05/30/2020 What Type Of Diet Are You Following? REGULAR [id number] Information not available 05/30/2020 Which Illicit Or Recreational Drugs Have You Used? None [id number] Information not available 05/30/2020 Education 4 Year College Information not available 08/27/2017 Family History Of Heart Disease? Yes Information not available 08/27/2017 Have There Been Any Changes To Your Family Or Social Situation? No [id number] Information no t available 05/30/2020 Are There Any Guns Present In Your Home? Yes [id number] Information not available 05/30/2020 Hard Of Hearing Or Deaf In One Or Both Ears? No Information not available 08/27/2017 Legally Blind In One Or Both Eyes? No Information no t available 08/27/2017 Live Alone Or With Others? With Others Information not available 08/27/2017 Do You Have A Medical Power Of Legal Officer? No [id number] Information not available 05/30/2020 What Was The Date Of Your Most Recent Tobacco Screening? 08/27/2017 [id number] Information not available 05/30/2020 How Many Children Do You Have? 1 [id number] Information not available 05/30/2020 What Is Your Current Pack Years? 10-19packyear s [id number] Information not available 05/30/2020 Performs Monthly Self-breast Exam? Yes Information no t available 08/27/2017 Do You Have Any Pets? No [id number] Information not available 05/30/2020 Difficulty Reading? No Information not available 08/27/2017 Seat Belts Used Routinely Yes Information not available 08/27/2017 Are You Sexually Active? Yes [id number] Information not available 05/30/2020 Smoke Alarm In Home Yes Information not available 08/27/2017 Do You Have Smoke And Carbon Monoxide Detectors In Your Home? Yes [id number] Information not available 05/30/2020 At What Age Did You Start Smoking Tobacco? 17 [id number] Information not available 05/30/2020 Are You Passively Exposed To Smoke? No Information no t available 08/27/2017 Are There Any Smokers In Your House? No Information not available 08/27/2017 How Much Tobacco Do You Smoke? 0.25 PPD [id number] Information not available 05/30/2020 General Stress Level Medium Information not available 08/27/2017 Sun Exposure Minimal Information not available 08/27/2017 Do You Use Sunscreen Routinely? Yes [id number] Information not available 05/30/2020 TB Risk Low Information no t available 08/27/2017 Has Tobacco Cessation Counseling Been Provided? Yes [id number] Information not available 05/30/2020 On What Date Was Tobacco Cessation Counseling Provided? 08/27/2017 [id number] Information not available 05/30/2020 How Many Years Have You Smoked Tobacco? 15 [id number] Information not available 05/30/2020 Difficulty Watching TV? No Information not available 08/27/2017 Do You Have Difficulty Walking Or Climbing Stairs? No [id number] Information not available 05/30/2020 Sex: Unknown Functional Status Question Answer Note LastModified by Organizat ion Details LastModified Time What is your level of alcohol consumption? Occasional [id number] Information not available 05/30/2020 Are you currently employed? Yes [id number] Information not available 05/30/2020 Do you have transportation difficulties? No [id number] Information not available 05/30/2020 Are you able to walk independently without assistance or assistive devices? YESWOREST [id number] Information not available 05/30/2020 Do you have difficulty doing errands alone? No [id number] Information not available 05/30/2020 Are you able to care for yourself independently? 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 No [id number] Information not available 05/30/2020 What is your exercise level? Occasional [id number] Information not available 05/30/2020 Mental Status Question Answer Note LastModified by Organization D etails LastModified Time Do you have difficulty concentrating, remembering or making decisions? Yes ADD [id number] Information no t available 05/30/2020 Family History Relationship Description Onset Age of this Age Resolved Age Notes LastModified by Organization Details LastModified Time Maternal Grandmother Family history of malignant neoplasm [email or web address] Not available 08/27 15:46:55 Maternal Grandfather Diabetes mellitus [email or web address] Not available 08/27 15:47:10 Maternal Grandfather Heart disease [email or web address] Not available 08/27 15:47:20 Paternal Grandmother Alcoholism [email or web address] Not available 08/27/2017 15:47:41 Paternal Grandmother Depressive disorder [email or web address] Not available 08/27 15:48:07 Father Alcoholism [email or web address] Not avail able 08/27/2017 15:48:19 Father Arthritis [email or web address] Not availa ble 08/27/2017 15:48:34 Father Depressive disorder [email or web address] Not available 08/27 15:48:45 Father Diabetes mellitus [email or web address] Not available 08/27 15:48:52 Mother Heart disease d[place] Not available 08/27 15:49:06 Mother Depressive disorder d[place] Not available 08/27 15:49:23 Mother Diabetes mellitus d[place] Not available 08/27 15:49:32 Sister Anxiety d[place] Not availabl e 08/27/2017 15:49:58 Medical History Condition Response Coronary Artery Disease N Other N Gout N Blood Diseases N Kidney Stones N Hyperthyroidism N Enlarged Prostate N Blood Transfusion N Dermatologic Disorders N Depression Y COPD N Gestational Diabetes Y Anxiety Disorder Y Autoimmune disease N Muscle, Joint, or Bone Problems N Obesity N Vision or Eye Problems N Arthritis N Infertility N Polyps N Mental Disorder N Cancer N Varicosities N Stroke N Neurologic/Epilepsy N Headaches N Fibromyalgia N Kidney Disease N Heart Problems N Ear or Hearing Problems N Hospitalizations N Acne N Eating Disorder N Skin Problems N MRSA exposure N Constipation N Heartburn Y Art (IVF or FET) N Bladder Problems N Bleeding Disorder N Tuberculosis N AIDS/HIV N G.E.R.D N Asthma N Trauma/Violence N Hepatitis N Pulmonary Embolism N Chronic Ear Infections N Chicken Pox N Autism Spectrum Disorder (ASD) N Thrombophilias N Allergies (Food, seasonal, environmental ) N Colon Cancer N Drug/Latex Allergies/Reactions N Breast Cancer N Lung Disease N Hypothyroidism N Defects or Inherited Disease N Developmental or Behavioral Disorders N Breast Problem N Difficulty Swallowing N Hematologic disorders N Anesthesia Complications N History of STI N Deep Vein Thrombosis N Polycystic ovary syndrome N Meniere's disease N History of abnormal pap N Endometriosis N High Cholesterol N Liver Disease N Allergies/Hayfever N Kidney Problems N Thyroid Problems N GI Problems N ADD/ADHD Y Anemia N Mental Illness N Psychiatric Illness N Diabetes N Ovarian Cancer N Pulmonary (TB, Asthma) N Seizures/Epilepsy N Congestive Heart Failure (CHF) N Hyperlipidemia N Eczema N Diverticulitis N Abuse/Domestic Violence N Depression/ depression N Heart Disease N Hypertension N Pre-Eclampsia N Osteoporosis N Gynecological History Statement/Question Response Abnormal Pap N Flow Moderate Date of LMP 08/17/2017 STIs/STDs N HPV Vaccine N Duration of Flow (days) 5 Age at Menarche 12 Current Control Method Seeking Pre gnancy Most Recent Mammogram Frequency of Cycle (Q days) 28 Sexually Active? Y Menses Monthly Y Date of Last Pap Smear 07/04/2016 Sexual Problems? N LMP Definite Obstetrics History GPAL:G 1 P 1 0 0 1 Type Value Full Term 1 Living 1 Total 1 Immunizations Vaccine Type Date Status Note Provider Nam e and Address Organization Details Recorded Time Influenza, split virus, quadrivalent, preservative 7 completed Not Available [facility] 09/04/2019 02:17:09 Past Encounters Encounter ID Performer Location Encounter Start Date Encounter Closed Date Diagnosis/Indication Diagnosis SNOMED-CT Code Diagnosis ICD10 Code Diagnosis IMO Codes Diagnosis Note [id number] Heber Fernandez DO Main Office [address] [place] [address] 08/27/2017 15:18:38 08/27/2017 16:46:29 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 Body mass index 30+ - obesity 855261043 Z68.33 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 Health Concerns Section Related Observation LastModified by Organization Detai ls LastModified Time None Recorded Concern Status LastModified by Organization Details LastModified Time None Recorded Advance Directives Directive N: Payers Insurance Date Sequence Insurance Name Policy Number Policy Willis Covered Member ID Willis Member ID Guarantor Name 08/27/2017 1 *SELF PAY* Ma cLyn Scio 08/27/2017 1 [place] [id number] [place] [id number] MacLyn Scio Notes Date Note Type Note Provider Name and Address Organization Details Recorded Time 8 text/html InfertilityReported by PatientROS as noted in the HPI Heber Fernandez, DO [address], [place], [address], [facility], 09/07/2017 20:50:57 OBGyn Episode Ob Episode Information Episode Created Date Number of Fetuses Patient Bloodtype Patient rh Status Prepregnancy Weight lbs Domestic Partner Domestic Partner Phone Father Name General Road Foreman Status 08/27/19 18 1 CLOSED Fetus Data First Name Last Name Admitted to NICU Weight (g) Sex Living Outcome Pediatric Complications Fetus ID Race Codes Race Delivery Type 3231.84 3 F Full Term [id number] Conrado Calculation Initial Conrado Date Initial Exam Date Initial Exam Provider Initial Ultrasound Date Last Menstrual Period Date Ultra Sound Weeks Gestation 0 Eighteen To Twenty Week Conrado Update Ultra Sound Date Fundal Height At Umbil Quickening Date Ultra Sound Latest Weeks Gestation Final Conrado Confirmed By Final Conrado Confirmed Date Final Conrado Date Ultra Sound Latest Days Gestation 0 0 Menstrual History Last Menstrual Date Menses Monthly On Bcp Conception Prior Menses Frequency Hcg Plus Date Menarche Onset Age Delivery Information Delivery Date Delivery Type Labor Anesthesia Weeks Gestation Incision Type Labor Labor Length Hrs Delivered By Post Complications Tubal Sterilization Discharge Date Comments 5 Regional-Sp inal 37 true Discharge Information Feeding Method Contraceptive Method Maternal HG B and HCT Levels
--- OUTSIDE RECORDS SUMMARY | 2025-06-15 14:46 | XMS_ITS | Patient Health Record ---
Author Organization [facility] Address [address] [place] [phone] Care Team Providers Care Mainframe Programmer Name Role Phone [place] Primary Care Provider Allergies Allergen (clinical drug ingredient) Drug/Non Drug Allergy documented on EMR Reaction Allergy Type Onset Date Status amoxicillin Amoxicillin raised, itchy red rash Drug Allergy 09/24/2019 Active nitrofurantoin, macrocrystals / nitrofurantoin, monohydrate Macrobid rash. hives Drug Allergy Active Tuberculin PPD Unknown Drug Allergy Ac tive metformin metFORMIN diarrhea Drug Allergy Active Results Component Value Reference Range Notes H-VITAMIN D Reviewed date:06/18/2024 04:01:14 PM Interpretation:47.2 Performing Lab: Notes/Report: TVITD 47.2 30-100 ng/mL Deficient <20 ng/mL Insufficient 20-30 ng/mL Sufficient 30-100 ng/mL Potential Toxicity >100 ng/mL H-Lipid Panel Reviewed date:06/18/2024 04:01:14 PM Interpretation:chol 129, dldl 74 Performing Lab: Notes/Report: Patient Fasting? Y TRIG 64 30-150 mg/dl CHOL 129 140-200 mg/dl DLDL 73.97 100-129 mg/dL VLDL 13 0-40 mg/dL HDL 49 40-60 mg/dl CHLHDL 2.6 1-3.5 H-CMP Reviewed date:06/18/2024 04:01:14 PM Interpretation:gluc 120, prot 6, a/g 2 Performing Lab: Notes/Report: NA 139 136-145 mmol/L K 4.4 3.5-5.1 mmoL/L CL 106 98-107 mmol/L CO2 27 22.0-30.0 mmol/L GAP 10.4 5-15 mEq/L BUN 17 7-17 mg/dl CREATT 0.80 0.52-1.04 mg/dl GFRAA 97 >60 ML/MIN EGFR 80 >60 ml/min GLU 120 74-100 mg/dl CA 9.3 8.4-10.2 mg/dl BILIT 0.5 0.2-1.3 mg/dl AST 19 14-36 U/L ALT 20 12-78 U/L TP 6.0 6.3-8.2 g/dl ALB 4.0 3.5-5.0 g/dl GLOB 2.0 1.3-3.2 g/dL AGRATIO 2.0 1.1-1.8 ALP 49 38-126 U/L H-Glycohemoglobin A1C Reviewed date:06/18/2024 04:01:14 PM Interpretation:6.0 Performing Lab: Notes/Report: HGBA1C 6.0 4.0-6.0 % < 6% Non-Diabetic Level < 7% Controlled Diabetic Level > 8% Poorly Controlled Diabetic Level Medications Medication SIG (Take, Route, Frequency, Duration) Notes Start Date End Date Status Flonase Allergy Relief 50 MCG/ACT 1 spray in each nostril Nasally Once a day 10/29/2023 Not-Taking Fenofibrate 160 MG 1 tablet Orally Once a day; Duration: 90 days Active Vitamin D3 1.25 MG (88668 UT) 1 capsule Orally Once a week 12/03/2023 Not-Taking Varenicline Tartrate (Starter) 0.5 MG X 11 & 1 MG X 42 as directed Orally 05/30/2025 Active Omeprazole 40 MG 1 capsule Orally Two times a day; Duration: 90 days Active Varenicline Tartrate 1 MG 1 tablet after eating Orally Twice a day; Duration: 30 days 05/30/2025 Active Celecoxib 200 mg 1 capsule with food orally once a day; Duration: 90 days Active Cyclobenzaprine HCl 5 mg 1 tablet at bed time orally daily; Duration: 90 days Active DULoxetine HCl 30 MG 1 capsule Orally On ce a day; Duration: 90 days Active Metoprolol Succinate ER 25 mg 1 tablet orally once a day; Duration: 30 days Active Immunizations Vaccine Route Administration Date Status Comme nts tuberculin (ppd) ID Intradermal 10/24/2007 Administered Fluzone PF Quad (6-35 months) Unknown 05/07/2018 Administered COVID 19 Pfizer Unknown 08/02/2020 Administered COVID 19 Pfizer Unknown 08/23/2020 Administered COVID 19 Pfizer Unknown 05/28/2021 Administered Problems Problem Type SNOMED Code ICD Code Onset Dates Problem Status W/U Status Risk Notes Problem Vitamin D deficiency (17336482) Vitamin D deficiency (E55.9) Active confirmed Problem Essential hypertension (04724578) Essential hypertension (I10) Active confirmed Problem Hypertriglyceridemia (949634153) Hypertriglyceridemia (E78.1) Active confirmed Problem Paresthesia (06275105) Paresthesia (R20.2) Active confirmed Problem Mixed hyperlipidemia (283906796) Mixed hyperlipidemia (E78.2) Active confirmed Problem Depressive disorder (17416356) Depressive disorder (F32.9) Active confirmed Problem Chronic pain (45812446) Other chronic pain (G89.29) Active confirmed Problem Mood disorder (73661449) Mood disorder (F39) Active confirmed Problem Chronic fatigue syndrome (97774074) Chronic fatigue (R53.82) Active confirmed Problem Bipolar affective disorder, currently depressed, moderate (185702460) Bipolar affective disorder, currently depressed, moderate (F31.32) Active confirmed Problem Hypersomnia (70363710) Hypersomnia (G47.10) Active confirmed Problem Tobacco user (190266117) Cigarette nicotine dependence without complication (F17.210) Active confirmed Problem Impaired fasting glycaemia (345999957) IFG (impaired fasting glucose) (R73.01) Active confirmed Problem Attention deficit disorder (38966528) Attention deficit disorder (F98.8) Active confirmed Problem Laryngopharyngeal reflux (234227298) Laryngopharyngeal reflux (LPR) (K21.9) Active confirmed Problem Obesity (732775242) Non morbid o besity (E66.9) Active confirmed Problem Low back pain (266987141) Low back pain, unspecified (M54.50) Active confirmed Problem Acute left-sided low back pain without sciatica (M54.50) Active confirmed Vital Signs Heart Rate 87 /min 05/30/2025 Blood pressure diastolic 80 mm Hg 05/30/2025 Height 66.75 in 05/30/2025 Blood pressure systolic 126 mm Hg 05/30/2025 Weight 218.2 lbs 05/30/2025 BMI 34.43 kg/m2 05/30/2025 Encounters Encounter Location Date Provider Diagnosis James [address] [place] [address] [place] [id number] 06/18/2024 [place] Hypertriglyceridemia E78.1 ; Essential hypertension I10 ; Chronic fatigue R53.82 ; Vitamin D deficiency E55.9 ; IFG (impaired fasting glucose) R73.01 and Depressive disorder F32.9 [facility] [address] [place] [id number] 08/20/2024 [place] Depressive disorder F32.9 and Laryngopharyngeal reflux (LPR) K21.9 [facility] [address] [place] [address] [place] [id number] 05/30/2025 [place] Hypertriglyceridemia E78.1 ; Depressive disorder F32.9 ; Low back pain, unspecified M54.50 ; Cigarette nicotine dependence without complication F17.210 ; Breast cancer screening by mammogram Z12.31 ; Colon cancer screening Z12.11 and Family hx of colon cancer Z80.0 [facility] [address] [place] [address] [place] [id number] 06/17/2024 [place] Mixed hyperlipidemia E78.2 ; Hypertriglyceridemia E78.1 ; IFG (impaired fasting glucose) R73.01 and Vitamin D deficiency E55.9 [facility] [address] [place] [id number] 10/20/2024 [place] [facility] [address] [place] [address] [place] [id number] 03/25/2025 [place] Assessments Encounter Date Diagnosis (ICD Code) Assessment Notes Treatment Notes Treatment Clinical Notes Section Notes 06/17/2024 Hypertriglyceridemia (ICD-10 - E78.1) 06/17/2024 Mixed hyperlipidemia (ICD-10 - E78.2) 06/18/2024 Essential hypertensi on (ICD-10 - I10) 06/18/2024 Hypertriglyceridemia (ICD-10 - E78.1) 08/20/2024 Depressive disorder (ICD-10 - F32.9) 08/20/2024 Laryngopharyngeal re flux (LPR) (ICD-10 - K21.9) 05/30/2025 Hypertriglyceridemia (ICD-10 - E78.1) 05/30/2025 Depressive disorder (ICD-10 - F32.9) 06/18/2024 Chronic fatigue (ICD -10 - R53.82) 06/17/2024 IFG (impaired fastin g glucose) (ICD-10 - R73.01) 05/30/2025 Low back pain, unspecified (ICD-10 - M54.50) 06/17/2024 Vitamin D deficiency (ICD-10 - E55.9) 06/18/2024 Vitamin D deficiency (ICD-10 - E55.9) 05/30/2025 Cigarette nicotine dependence without complication (ICD-10 - F17.210) 05/30/2025 Breast cancer screen ing by mammogram (ICD-10 - Z12.31) 06/18/2024 IFG (impaired fastin g glucose) (ICD-10 - R73.01) 05/30/2025 Colon cancer screeni ng (ICD-10 - Z12.11) 06/18/2024 Depressive disorder (ICD-10 - F32.9) 05/30/2025 Family hx of colon cancer (ICD-10 - Z80.0) Plan Of Treatment Pending Test Test Name Order Date Glycohemoglobin (HbA1C) 12/29/2020 Glucose 12/29/2020 colonoscopy 05/30/2025 Mammogram 05/30/2025 Next Appt Details Provider Name:Chico Aponte ry, 08/31/2025 04:15:00 PM, [address] [facility], [address], [place], [place], [id number], Insurance Providers Payer Name Payer Address Payer Phone Subscriber Number Group Number Insured Name Patient Relationship to Insured Coverage Start Date Coverage End Date [facility] [address] [place], [place] [phone] [id number] DYLAN FITZGERALD Self - patient is the insured Medications Administered Medication Instructions Date of Administration Dosage Notes Dexamethasone 04/15/2008 1 mL Dexamethasone 01/26/2019 1 mL Medical (General) History Medical History History ICD Code Allergies ADHD Allergic to TB Serum Esophageal Reflux Hypertension hyperlipidemia hypertriglyceridemia Impaired fasting glucose Surgical History Surgery Date(Month/Year) [place] Teeth Removed 05/2018 Hospitalization History Reason Date(Month/Year) Panic Attack- [facility] 01/2016
--- OUTSIDE RECORDS SUMMARY | 2025-06-15 14:46 | XMS_ITS | Clinical Summary ---
Author Organization [facility] Address [address] [place] [address] Care Team Providers Care Assistant Activities Director Name Role Phone Unavailable Primary Care Provider [...] 1985 TDAP/TD VACCINES (1 - Tdap) 2004 INFLUENZA VACCINE 03/04/2025 MAMMOGRAM 2025 Pneumococcal Vaccine 0-49 Aged Out No longer eligible based on patient's age to complete this topic
--- NOTE | 2025-06-15 14:47 | MM_ITS ---
PROCEDURE INFORMATION: Exam: Bilateral Screening 3D Mammography Exam date and time: 06/15/2025 3:07 PM Age: 40 years old Clinical indication: Screening examination TECHNIQUE: Imaging protocol: Bilateral Screening tomosynthesis and 2D mammography including computer-aided detection (CAD) when performed. COMPARISON: No relevant prior studies available. FINDINGS: MAMMOGRAPHY: Breast composition: The breasts are heterogeneously dense, which may obscure small masses. Mass: No suspicious masses. Architectural distortion: None. Calcifications: No suspicious calcifications. Asymmetric density: None. Skin thickening: None. Axillary adenopathy: None. IMPRESSION: No mammographic evidence of malignancy. Annual screening is recommended unless otherwise clinically indicated. ASSESSMENT: BI-RADS Category 1: Negative.
--- OUTSIDE RECORDS SUMMARY | 2025-06-15 14:47 | XMS_ITS | Data Portability ---
Author Organization [facility] [place] [facility] Address [address] [place] [address] Care Team Providers Care Biophysics Professor Name Role Phone THERESA GARCIA Primary Care Provider Assessment No assessment recorded. Plan of Treatment Reminders Order Date Submit Date Provider Last Modified By Organization Details Last Modified Time Details Appointments None recorded. Lab None recorded. Referral None recorded. Procedures None recorded. Surgeries None recorded. Imaging None recorded. Medication Orders mupirocin 2 % topical ointment 2019 [facility], [address] [place] [address] E [address] [place]-Marlen [place], [phone], 0 17:33:58 Pepcid 20 mg tablet 2019 [facility], [address] [place] [address] E Crescencio G-Juliana [place], [place], [id number], 0 17:33:58 Tums 200 mg (as calcium carbonate 500 mg) chewable tablet 2019 [facility], [address] [place] [address] E Crescencio G-Marlen [place], [place], [id number], 0 17:33:58 Patient TargetsNo targets recorded. Patient Instructions Encounter Date Encounter Id Patient Instructions Last Modified By Organization Details Last Modified Time 05/11/2020 [id number] 1. Flexible laryngoscopy performed in office today; clinical images obtained. Full risks, complications, and benefits of non-operative intervention have been thoroughly discussed. Understanding was expressed, informed consent given, and we will proceed with the discussed treatment plan. There were no questions for me at the end of the office visit. 2. RX: Mupirocin ointment; apply a small amount with a q-tip to both nostrils twice daily for 2 weeks. 3. RX: Pepcid 20 mg; one tablet once a day in the mornings x 30 days; with refills. 4. RX: Tums 200 mg; one tablet once nightly x 30 days; with refills. 5. Follow up in 3-4 months or sooner for new or worsening symptoms. [email or web address] Not available 05/11/2020 13:52:15 Reason for Referral None Reported. Problems No Known Problems Procedures Surgical History Date Name Laterality Status Provider Name and Address Organization Details Recorded Time 05/11/20 20 Laryngoscopy Flex completed Awais Ritchie [facility] 05/11/2020 13:46:48 08/04/19 18 delivery completed Nikki Zuniga [facility] 05/11/2020 13:13:23 08/04/19 15 delivery completed Nikki Zuniga [facility] 05/11/2020 13:13:29 08/04/19 08 tonsillectomy completed KIRILL MICHAEL MD [address] [place] [address], [phone], [facility] 05/11/2020 17:53:05 08/04/19 01 extraction of wisdom tooth completed Nikki Zuniga [facility] 05/11/2020 13:12:51 Imaging Results None recorded. Procedure Notes None recorded. Medical Equipment None Reported. Allergies Allergen ID Allergen Name Allergen Category Reaction Reaction Severity Criticality Documentation Date Start Date Code Code System Note Provider Name and Address Organization Details Recorded Time 555188 amoxicill in medicatio n itching rash Not available Not available Not available 05/11/2020 723 RxNorm Nikki Zuniga [facility] 0 13:08:24 Medications Name Sig Start Date Stop Date Status Note LastModified by Organization Details LastModified Time celecoxib 200 mg capsule TAKE ONE CAPSULE BY MOUTH EVERY DAY --TAKE WITH FOOD-- active Not Available Not Available No t Available azithromyc in 250 mg tablet TAKE 2 TABLETS BY MOUTH ON DAY 1, THEN TAKE 1 TABLET DAILY ON DAYS 2-5 05/11 completed Not Available Not Available Not Available meloxicam 15 mg tablet TAKE ONE TABLET BY MOUTH EVERY DAY --TAKE WITH FOOD-- active Not Available Not Available No t Available prednisone 20 mg tablet TAKE 1 TABLET BY MOUTH TWICE DAILY FOR 5 DAYS 05/11 completed Not Available Not Available Not Available sulfametho xazole 800 mg-trimeth oprim 160 mg tablet TAKE ONE TABLET BY MOUTH TWICE DAILY -- FINISH ALL MEDICINE -- active Not Available Not Available No t Available amoxicilli n 875 mg tablet TAKE 1 TABLET BY MOUTH EVERY 12 HOURS 05/11 completed Not Available Not Available Not Available citalopram 20 mg tablet TAKE ONE TABLET BY MOUTH EVERY DAY active Not Available Not Available No t Available hyoscyamin e 0.125 mg sublingual tablet DISSOLVE ONE TABLET in MOUTH EVERY 4 HOURS NEEDED MAY CAUSE DROWSINE SS active Not Available Not Available No t Available acyclovir 200 mg capsule 05/11 completed Not Available Not Available Not Available mupirocin 2 % topical ointment APPLY A SMALL AMOUNT TO THE AFFECTED AREA BY TOPICAL ROUTE 2 TIMES PER DAY 2019 active Not Available Not Available Not Avai lable metoprolol succinate ER 25 mg tablet,ext ended release 24 hr TAKE ONE TABLET BY MOUTH EVERY DAY active Not Available Not Available No t Available Pepcid 20 mg tablet 1 tablet once a day in the morning 2019 active Not Available Not Available Not Avai lable methylpred nisolone 4 mg tablets in a dose pack TAKE ACCORDIN G TO PACKAGE INSTRUCT IONS --TAKE WITH FOOD-- -- FINISH ALL MEDICINE -- active Not Available Not Available No t Available ondansetro n 4 mg disintegra ting tablet active zofran Not Available Not Available Not Available Tums 200 mg (as calcium carbonate 500 mg) chewable tablet 1 tablet once a day at night 2019 active Not Available Not Available Not Avai lable loratadine 10 mg tablet Take 1 tablet every day by oral route. active Not Available Not Available No t Available cyclobenza janey 5 mg tablet TAKE 1 TO 2 TABLET(S ) BY MOUTH THREE TIMES DAILY NEEDED MAY CAUSE DROWSINE SS active Not Available Not Available No t Available nitrofuran toin monohydrat e/macrocry stals 100 mg capsule 05/11 completed Not Available Not Available Not Available duloxetine 30 mg capsule,de layed release TAKE ONE CAPSULE BY MOUTH EVERY DAY active Not Available Not Available No t Available Vitals Date Recorded Body weight Body temperature Body mass index (BMI) Body height Heart rate Systolic And Diastolic Provider Name and Address Organization Details Last Updated DateTime 0 57010.3 7 g 98.2 [degF] 30.3 kg/m2 167.64 cm 88 /min 157/79 mm[Hg] Nikki Zuniga [facility] 0 13:16:51 Social History Question Answer Notes LastModified by Organizat [facility] Details LastModified Time Tobacco Smoking Status Current Every Day Smoker Nikkijun Zuniga [facility] 05/11/2020 13:11:45 How Much Tobacco Do You Smoke? 0.5 PPD [email or web address] Information not available 05/11/2020 How Many Years Have You Smoked Tobacco? 15 Information not available 05/11/2020 Sex: Unknown Functional Status Question Answer Note LastModified by [employer] Details LastModified Time What is your level of alcohol consumption? Occasional 1-15 drinks mth [email or web address] Information not available 05/11/2020 Mental Status None recorded. Family History Relationship Description Onset Age of this Age Resolved Age Notes LastModified by Organization Details LastModified Time Father Hypertensive disorder [email or web address] Not available 05/11 13:11:18 Father Diabetes mellitus [email or web address] Not available 05/11 13:11:32 Mother Diabetes mellitus [email or web address] Not available 05/11 13:11:32 Medical History Condition Response Anxiety Disorder Y Arthritis Y Depression Y Asthma Y Gynecological HistoryNo gynecological history recorded. Obstetrics History GPAL:G 0 P 0 0 0 0 Past Encounters Encounter ID Performer Location Encounter Start Date Encounter Closed Date Diagnosis/Indication Diagnosis SNOMED-CT Code Diagnosis ICD10 Code Diagnosis IMO Codes Diagnosis Note [id number] MD [facility] [address] [place] [address] 05/11/2020 12:50:12 05/11/2020 13:53:31 Nasal vestibulitis 08757574 J34.89 - Bilaterall y Feeling of lump in throat 117775191 F45.8 Chronic cough 52080209 R 05 - Ongoing for a year - 05/11/2020 Uvular hypertrophy 74365 75540 67878 K13.79 - Elongated uvula - 05/11/2020 Laryngopha ryngeal reflux 804629321 K21.9 Snoring 08876631 R06.83 Health Concerns Section Related Observation LastModified by Organization Detai ls LastModified Time None Recorded Concern Status LastModified by Organization Details LastModified Time None Recorded Advance Directives Directive None Recorded Payers Insurance Date Sequence Insurance Name Policy Number Policy Willis Covered Member ID Willis Member ID Guarantor Name 11/09/2021 PAYMENT PLAN [place] 01/30/2022 1 [employer] [place] [id number] [employer] [place] Notes Date Note Type Note Provider Name and Address Organization Details Recorded Time 05/11/2020 text/html Skyler is a 35 year old who comes in today for consultation at the request of Dr. Theresa Garcia for an evaluation of lump in throat and cough when singing. She reports this has been going for about a year. She reports she likes to sing and does Karaoke Separately she has some sore spots in her nose. She reports she has tried Neosporin and other over the counter topical ointments including Hibiclens with not much relief. She report she blows her nose quite a bit throughout the day. She reports her has told her that she does snore some at night. She denies any obvious history of acid reflux. KIRILL MICHAEL MD [address] [place], [address], [facility] 05/11/2020 17:53:22 OBGyn Episode No OBEpisode recorded.
== END 2025-06-15 23:59 | disposition home or self-care (01) ==
LOC: RAD 14:44
PROVIDERS: PCP Family Medicine; Visit Provider Family Medicine
DX: Z12.31 Encounter for screening mammogram for malignant neoplasm of breast (principal); R92.333 Mammographic heterogeneous density, bilateral breasts
CPT/HCPCS: 77063; 77067